=== PATIENT | female | born 1965 | race Hispanic/Latino ===

== ENCOUNTER 2018-09-07 14:35 | Emergency (ER) | payer OTHER ==
--- OUTSIDE RECORDS SUMMARY | 2018-09-07 14:37 | XMS REPORT | Summary of Care ---
:1965 Author Organization [facility] Address [address] [place] [address]- Encounter HQ Harrisonr_radhika(FIN) [id number] Date(s): 09/30/17 - 09/30/[address] [place] [address] Discharge Disposition: Home or Self Care Attending Physician: Mickey Zuñiga MD Referring Physician: Physician, Non Associated MD Vital Signs Most recent to oldest [Reference Range]: 1 Height 152.4 cm (09/30/17 3:02 PM) Blood Pressure [90-140/60-90 mmHg] 108/76 mmHg (09/30/17 3:02 PM) Respiratory Rate [14-20 BRMIN] 21 BRMIN *HI* (09/30/17 3:02 PM) Peripheral Pulse Rate [60-100 bpm] 91 bpm (09/30/17 3:02 PM) Weight 82.415 kg (09/30/17 3:02 PM) Body Mass Index 35.48 m2 (09/30/17 3:02 PM) Problem List Condition Effective Dates Status Health Status Informant Symptomatic Active cholelithiasis(Confirmed) High cholesterol(Confirmed) Resolved Liver cyst(Confirmed) Active Morbid obesity(Confirmed) Active Allergies, Adverse Reactions, Alerts Substance Reaction Severity Status NKDA Moderate Active Medications No Known Medications Results No data available for this section Immunizations No data available for this section Procedures No data available for this section Social History Social History Type Response Smoking Status Never smoker; Previous treatment: None; Ready to change: No; Concerns about tobacco use in household: No; Exposure to Tobacco Smoke None; Cigarette Smoking Last 365 Days No; Reg Smoking Cessation Counseling No Assessment and Plan Extracted from: Title: Surgery Consultation Author: Lacy Khan Date: 09/30/17 Assessment/Plan 51 YOHF with hypercholesterolemia, liver cysts, and cholelithiasis with episodes of likely gallstone pancreatitis Liver cyst Cannot r/o liver cystsas cause of RUQ pain- recommend excision of largest cyst (~10cm) in left lateral segment in concurrence with laparoscopic cholecystectomy. Symptomatic cholelithiasis With episodes of probable gallstone pancreatitis, symptomatic cholelithiasis , and MRI confirming cholelithiasis, laparoscopic cholecystectomy is indicated and recommended. R/B/A discussed with patien t, all questions answered, and patient verbalized understanding. EKG and chest X-ray ordered for pre-op evaluation. Will schedule for laparoscopic cholecystectomy and excision of liver cyst on October 08. Ordered: Chest 2 views DX, 09/30/17, None, Routine ONCE, 1, day, Transport by Ambulatory , Future Order Indicator, ZORAIDA Pendleton EKG 11/15 Lead Only All Units, Routine, 09/30/17, Periop cardiovascular exam , ONCE, Future Order
--- OUTSIDE RECORDS SUMMARY | 2018-09-07 14:37 | XMS REPORT | Summary of Care ---
:1965 Author Organization [facility] Address [address] [place], [place] [address]- Encounter HQ Encntr_alias(FIN) [id number] Date(s): 08/14/17 - 08/14/17 [facility] [address] [place] [address]- Discharge Disposition: Home or Self Care Attending Physician: Clement Borges MD Referring Physician: Clement Borges MD Vital Signs No data available for this section Problem List No data available for this section Allergies, Adverse Reactions, Alerts No data available for this section Medications No data available for this section Results No data available for this section Immunizations No data available for this section Procedures No data available for this section Social History No data available for this section Assessment and Plan No data available for this section
--- OUTSIDE RECORDS SUMMARY | 2018-09-07 14:37 | XMS REPORT | Summary of Care ---
:1965 Author Organization [facility] Address [address] [place] [address]- Encounter HQ Encntr_alias(FIN) [id number] Date(s): 10/13/15 - 10/13/[address] [address]- [phone] Discharge Disposition: Home Attending Physician: Barry Metcalf MD Vital Signs No data available for [...]
--- OUTSIDE RECORDS SUMMARY | 2018-09-07 14:37 | XMS REPORT | Summary of Care ---
:1965 Author Organization [facility] Address [address] [place], [place] [address]- Encounter HQ Encntr_alias(FIN) [id number] Date(s): 08/16/17 - 08/16/17 [facility] [address] [place] [address]- Discharge Disposition: Home or Self Care Attending Physician: Jonh Mccloud MD Referring Physician: Jonh Mccloud MD Vital Signs No data available for [...]
--- OUTSIDE RECORDS SUMMARY | 2018-09-07 14:37 | XMS REPORT | Summary of Care ---
:1965 Author Organization [facility] Address [address] [place] [address]- Encounter HQ Shorty(FIN) [id number] Date(s): 10/21/17 - 10/21/[address] [place] [address] Discharge Disposition: Home or Self Care Attending Physician: Mickey Zuñiga MD Referring Physician: Mickey Zuñiga MD Vital Signs Most recent to oldest [Reference Range]: 1 Height 152.4 cm (10/21/17 3:20 PM) Blood Pressure [90-140/60-90 mmHg] 116/70 mmHg (10/21/17 3:20 PM) Respiratory Rate [14-20 BRMIN] 19 BRMIN (10/21/17 3:20 PM) Peripheral Pulse Rate [60-100 bpm] 76 bpm (10/21/17 3:20 PM) Weight 81.006 kg (10/21/17 3:20 PM) Body Mass Index 34.88 m2 (10/21/17 3:20 PM) Problem List Condition Effective Dates Status Health Status Informant Symptomatic Active cholelithiasis(Confirmed) Cholelithiasis(Confirmed) Resolved High cholesterol(Confirmed) Resolved Liver cyst(Confirmed) Active Liver cyst(Confirmed) Resolved Morbid obesity(Confirmed) Active Allergies, Adverse Reactions, Alerts Substance Reaction Severity Status NKDA Moderate Active Medications famotidine 20 mg oral tablet 20 mg=1 tab, PO, BID, PRN Heartburn, # 60 tab, 5 Refill(s), Pharmacy: [facility] [id number] Start Date: 10/21/17 Stop Date: 10/16/18 Status: OrderedProtonix 40 mg oral enteric coated tablet 40 mg=1 tab, PO, Daily, # 30 tab, 5 Refill(s), Pharmacy: [facility] [id number] Start Date: 10/21/17 Stop Date: 04/19/18 Status: Ordered Results No data available for this section Immunizations No data available for this section Procedures Procedure Date Related Diagnosis Body Site Cholecystocaecostomy 10/08/17 Lithotripsy Tubal ligation Social History Social History Type Response Alcohol Never Smoking Status Never smoker; Previous treatment: None; Ready to change: No; Concerns about tobacco use in household: No; Exposure to Tobacco Smoke None; Cigarette Smoking Last 365 Days No; Reg Smoking Cessation Counseling No Assessment and Plan No data available for this section
--- OUTSIDE RECORDS SUMMARY | 2018-09-07 14:37 | XMS REPORT | Summary of Care ---
:1965 Author Organization [facility] Address [address] [place] [address]- Encounter HQ Harrisonr_radhika(FIN) [id number] Date(s): 10/09/17 - 10/09/[address] Professional Services provided by [facility] [place] [address]- Discharge Disposition: Home or Self Care Attending Physician: Mickey Zuñiga MD Admitting Physician: Mickey Zuñiga MD Referring Physician: Mickey Zuñiga MD Vital Signs Most recent to oldest 1 2 3 [Reference Range]: Height 152.4 cm 152.4 cm (10/08/17 1:48 PM) (10/04/17 12:19 PM) Temperature Oral [96.4-99.1 98.2 DegF 97.9 DegF 97.6 DegF DegF] (10/09/17 11:22 AM) (10/09/17 7:00 AM) (10/08/17 11:43 PM) Blood Pressure [90-140/60-90 103/69 mmHg 98/60 mmHg 100/61 mmHg mmHg] (10/09/17 11:22 AM) (10/09/17 7:00 AM) (10/08/17 11:43 PM) Respiratory Rate [14-20 18 BRMIN 18 BRMIN 18 BRMIN BRMIN] (10/09/17 11:22 AM) (10/09/17 7:00 AM) (10/08/17 11:43 PM) Peripheral Pulse Rate 64 bpm 61 bpm 65 bpm [60-100 bpm] (10/09/17 11:22 AM) (10/09/17 7:00 AM) (10/08/17 11:43 PM) Weight 87.358 kg 82.273 kg (10/08/17 1:48 PM) (10/08/17 8:46 AM) Body Mass Index 37.61 m2 35.42 m2 (10/08/17 1:48 PM) (10/08/17 8:46 AM) Problem List Condition Effective Dates Status Health Status Informant Symptomatic Active cholelithiasis(Confirmed) Cholelithiasis(Confirmed) Resolved High cholesterol(Confirmed) Resolved Liver cyst(Confirmed) Active Liver cyst(Confirmed) Resolved Morbid obesity(Confirmed) Active Allergies, Adverse Reactions, Alerts Substance Reaction Severity Status NKDA Moderate Active Medications acetaminophen (ANES) Route: IV, Drug form: INJ, ONCE, Stop date: 10/08/17 11:05:00 [employer] Start Date: 10/08/17 Stop Date: 10/08/17 Status: Completedacetaminophen-codeine #3 1 tab, Route: PO, Drug Form: TAB, Dosing Weight 82.273, kg, Q6H, PRN Pain Score 1-3, Start date: 10/08/17 12:17:00 [employer], Duration: 30 day, Stop date: 11/07/17 12 :16:00 [employer], pain scale 4-6 Notes: Do not exceed 4gm/day of acetaminophen. (Same as: Tylenol with Codeine # 3) Start Date: 10/08/17 Stop Date: 10/09/17 Status: Discontinuedacetaminophen-codeine #3 2 tab, Route: PO, Drug Form: TAB, Dosing Weight 82.273, kg, Q6H, PRN Pain Score 4-6, Start date: 10/08/17 12:16:00 [employer], Duration: 30 day, Stop date: 11/07/17 12 :15:00 [employer], pain scale 1-3 Notes: Do not exceed 4gm/day of acetaminophen. (Same as: Tylenol with Codeine # 3) Start Date: 10/08/17 Stop Date: 10/09/17 Status: DiscontinuedANES flumazenil 0.2 mg, Route: IVP, PRN, Dosing Weight 82.273, kg, PRN Benzodiazepine Reversal, Initial dose, Start date: 10/08/17 10:10:00 [employer], Duration: 30 day, Stop date: 10:09:00 [employer] Start Date: 10/08/17 Stop Date: 10/08/17 Status: DiscontinuedANES hydrALAZINE 10 mg, Route: IVP, Q20Min, Dosing Weight 82.273, kg, PRN Elevated BP, Start date : 10/08/17 10:10:00 [employer], Duration: 2 doses or times, Stop date: Limited # of times Start Date: 10/08/17 Stop Date: 10/08/17 Status: DiscontinuedANES HYDROmorphone 0.5 mg, Route: IVP, Q5Min, Dosing Weight 82.273, kg, PRN Pain Score 7-10, Start date: 10/08/17 10:10:00 [employer], Duration: 4 doses or times, Stop date: Limited # of times Start Date: 10/08/17 Stop Date: 10/08/17 Status: DiscontinuedANES labetalol 10 mg, Route: IVP, Q5Min, Dosing Weight 82.273, kg, PRN Elevated BP, Start date : 10/08/17 10:10:00 [employer], Duration: 5 doses or times, Stop date: Limited # of times Start Date: 10/08/17 Stop Date: 10/08/17 Status: DiscontinuedANES metoprolol 1 mg, Route: IVP, Q5Min, Dosing Weight 82.273, kg, PRN Other -See Comment, Start date: 10/08/17 10:10:00 [employer], Duration: 5 doses or times, Stop date: Limited # of times Start Date: 10/08/17 Stop Date: 10/08/17 Status: DiscontinuedANES naloxone 0.4 mg, Route: IVP, Q2MIN, Dosing Weight 82.273, kg, PRN Narcotic Reversal, Start date: 10/08/17 10:10:00 [employer], Duration: 8 doses or times, Stop date: Limited # of times Start Date: 10/08/17 Stop Date: 10/08/17 Status: DiscontinuedANES ondansetron 4 mg, Route: IVP, ONCE, Dosing Weight 82.273, kg, PRN Nausea & Vomiting, Start date: 10/08/17 10:10:00 [employer] Start Date: 10/08/17 Stop Date: 10/08/17 Status: DiscontinuedANES oxyCODONE 5 mg, Route: PO, Drug form: TAB, Q4H, Dosing Weight 82.273, kg, PRN Pain Score 4 -6, Start date: 10/08/17 10:10:00 [employer], Duration: 30 day, Stop date: 11/07/17 10: 09:00 [employer] Start Date: 10/08/17 Stop Date: 10/08/17 Status: DiscontinuedANES promethazine 6.25 mg, Route: IVPB, ONCE, Dosing Weight 82.273, kg, PRN Nausea & Vomiting , Start date: 10/08/17 10:10:00 [employer] Start Date: 10/08/17 Stop Date: 10/08/17 Status: DiscontinuedceFAZolin (ANES) Route: IV, Drug form: INJ, ONCE, Stop date: 10/08/17 10:15:00 [employer] Start Date: 10/08/17 Stop Date: 10/08/17 Status: CompletedCipro 500 mg oral tablet 500 mg=1 tab, PO, Q12H, X 7 day, # 14 tab, 0 Refill(s), Pharmacy: [facility] [id number] Start Date: 10/09/17 Stop Date: 10/16/17 Status: Orderedciprofloxacin 400 mg, 200 mL, Route: IVPB, Drug form: INJ, [id number], Dosing Weight 82.273, kg, Start date: 10/08/1715:00:00 [employer], Duration: 7 day, Stop date: 10/15/17 3:00:00 [employer], ABX Indication: Intra-abdominal Infection Notes: Do not refrigerate Start Date: 10/08/17 Stop Date: 10/09/17 Status: Discontinueddexamethasone (ANES) Route: IV, Drug form: INJ, ONCE, Stop date: 10/08/17 10:15:00 [employer] Start Date: 10/08/17 Stop Date: 10/08/17 Status: CompletedDilaudid 0.5 mg, 0.25 mL, Route: IVP, Drug form: INJ, Q4H, Dosing Weight 82.273, kg, PRN Pain Score 7-10, Start date: 10/08/17 12:14:00 [employer], Duration: 30 day, Stop date : 11/07/17 12:13:00 [employer] Notes: Same as: Dilaudid Start Date: 10/08/17 Stop Date: 10/09/17 Status: Discontinueddocusate 100 mg, 1 cap, Route: PO, Drug form: CAP, Daily, Dosing Weight 82.273, kg, Start date: 10/09/17 9:00:00 [employer], Duration: 30 day, Stop date: 11/07/17 9:00:00 [employer] Notes: (Same as: Colace) (Do Not Crush) Start Date: 10/09/17 Stop Date: 10/09/17 Status: Discontinueddocusate sodium 100 mg oral capsule 100 mg=1 cap, PO, Daily, # 14 cap, 0 Refill(s), Pharmacy: [facility] [id number] Start Date: 10/09/17 Stop Date: 10/23/17 Status: OrderedExcedrin 2 tab, PO, Q6H, as needed for migraines, 0 Refill(s) Start Date: 10/08/17 Status: Orderedfamotidine (ANES) Route: IV, Drug form: INJ, ONCE, Stop date: 10/08/17 10:20:00 [employer] Start Date: 10/08/17 Stop Date: 10/08/17 Status: CompletedfentaNYL (ANES) Route: IV, Drug form: INJ, ONCE, Stop date: 10/08/17 10:35:00 [employer] Start Date: 10/08/17 Stop Date: 10/08/17 Status: Completedgabapentin 300 mg oral capsule 300 mg, 1 cap, Route: PO, Drug form: CAP, ONCE, Dosing Weight 82.273, kg, Priority: STAT, Start date: 10/08/17 8:56:00 [employer], Stop date: 10/08/17 8:56:00 [employer] Notes: (Same as: Neurontin) Start Date: 10/08/17 Stop Date: 10/08/17 Status: Completedglycopyrrolate (ANES) Route: IV, Drug form: INJ, ONCE, Stop date: 10/08/17 12:09:00 [employer] Start Date: 10/08/17 Stop Date: 10/08/17 Status: Completedheparin 5,000 unit, 1 mL, Route: SUB-Q, Drug form: INJ, Q8H, Dosing Weight 87.358, kg, Start date: 10/09/17 21:21:00 [employer], Duration: 30 day, Stop date: 11/08/17 16:00: 00 [employer] Notes: porcine heparin Start Date: 10/09/17 Stop Date: 10/09/17 Status: Canceledibuprofen 200 mg, PO, Q6H, PRN Pain Score 6-10, 0 Refill(s) Start Date: 10/08/17 Status: OrderedketOROLAC (ANES) IV, ONCE Start Date: 10/08/17 Stop Date: 10/08/17 Status: Completedlidocaine (ANES) Route: IV, Drug form: INJ, ONCE, Stop date: 10/08/17 10:30:00 [employer] Start Date: 10/08/17 Stop Date: 10/08/17 Status: CompletedLR 1000 mL INJ (ANES) Route: IV, Total Volume: 1,000, Start date: 10/08/17 9:15:00 [employer], Stop date: 06/17 10:15:00 [employer] Start Date: 10/08/17 Stop Date: 10/08/17 Status: Completedmidazolam (ANES) Route: IV, Drug form: SOLN, ONCE, Stop date: 10/08/17 10:30:00 [employer] Start Date: 10/08/17 Stop Date: 10/08/17 Status: Completedneostigmine (ANES) Route: IV, Drug form: INJ, ONCE, Stop date: 10/08/17 12:09:00 [employer] Start Date: 10/08/17 Stop Date: 10/08/17 Status: CompletedNorco 5/325 oral tablet 1 tab, PO, Q6H, # 30 tab, 0 Refill(s), given to patient Start Date: 10/09/17 Stop Date: 10/21/17 Status: Orderedondansetron (ANES) Route: IV, Drug form: INJ, ONCE, Stop date: 10/08/17 12:09:00 [employer] Start Date: 10/08/17 Stop Date: 10/08/17 Status: Completedphenylephrine (ANES) Route: IV, Drug form: INJ, ONCE, Stop date: 10/08/17 10:20:00 [employer] Start Date: 10/08/17 Stop Date: 10/08/17 Status: CompletedPlasma-Lyte A PH-7.4 1000 ml INJ 1,000 mL 1,000 mL, Rate: 150 ml/hr, Infuse over: 6.7 hr, Route: IV, Dosing Weight 82.273 kg, Total Volume: 1,000, Start date: 10/08/17 12:13:00 [employer], Duration: 8 hr, Stop date: 10/08/17 20:12:00 [employer] Notes: WASTE: F/P - Sink; E - Municipal Trash Bin Start Date: 10/08/17 Stop Date: 10/08/17 Status: Completedpropofol (ANES) Route: IV, Drug form: INJ, ONCE, Stop date: 10/08/17 10:30:00 [employer] Start Date: 10/08/17 Stop Date: 10/08/17 Status: Completedrocuronium (ANES) Route: IV, Drug form: INJ, ONCE, Stop date: 10/08/17 10:30:00 [employer] Start Date: 10/08/17 Stop Date: 10/08/17 Status: Completedtramadol 100 mg oral tablet, extended release 100 mg, 1 tab, Route: PO, Drug form: ERTAB, ONCE, Priority: STAT, Start date: 8:56:00 [employer], Stop date: 10/08/17 8:56:00 [employer] Start Date: 10/08/17 Stop Date: 10/08/17 Status: Discontinuedtramadol 50 mg oral tablet 100 mg, 2 tab, Route: PO, Drug form: TAB, ONCE, Start date: 10/08/17 8:58:00 [employer] , Stop date: 10/08/17 8:58:00 [employer] Notes: Not to exceed 400mg/day. (Same As: Ultram) Start Date: 10/08/17 Stop Date: 10/08/17 Status: Completed Results BLOOD BANK RESULTS Most recent to oldest [Reference Range]: 1 2 ABO/Rh O POS *Unknown* (10/08/17 8:37 AM) Antibody Scrn Negative (10/08/17 8:37 AM) ELECTROLYTES Most recent to oldest [Reference Range]: 1 2 Sodium Lvl [135-145 mEq/L] 139 mEq/L 136 mEq/L (10/09/17 3:58 AM) (10/08/17 8:37 AM) Potassium Lvl [3.5-5.1 mEq/L] 4.1 mEq/L 3.9 mEq/L (10/09/17 3:58 AM) (10/08/17 8:37 AM) Chloride Lvl [95-109 mEq/L] 106 mEq/L 105 mEq/L (10/09/17 3:58 AM) (10/08/17 8:37 AM) CO2 [24-32 mEq/L] 25 mEq/L 22 mEq/L (10/09/17 3:58 AM) *LOW* (10/08/17 8:37 AM) AGAP [10.0-20.0 mEq/L] 12.1 mEq/L 12.9 mEq/L (10/09/17 3:58 AM) (10/08/17 8:37 AM) CHEM PANEL Most recent to oldest [Reference Range]: 1 2 Creatinine Lvl [0.50-1.40 mg/dL] 0.72 mg/dL 0.80 mg/dL (10/09/17 3:58 AM) (10/08/17 8:37 AM) eGFR 98 mL/min/1.73m2 1 86 mL/min/1.73m2 2 *NA* *NA* (10/09/17 3:58 AM) (10/08/17 8:37 AM) BUN [7-22 mg/dL] 13 mg/dL 17 mg/dL (10/09/17 3:58 AM) (10/08/17 8:37 AM) Glucose Lvl [70-99 mg/dL] 112 mg/dL 128 mg/dL *HI* *HI* (10/09/17 3:58 AM) (10/08/17 8:37 AM) Total Protein [6.4-8.4 g/dL] 8.7 g/dL *HI* (10/08/17 8:37 AM) Albumin Lvl [3.5-5.0 g/dL] 4.1 g/dL (10/08/17 8:37 AM) Globulin [2.7-4.2 g/dL] 4.6 g/dL *HI* (10/08/17 8:37 AM) A/G Ratio [0.7-1.6] 0.9 (10/08/17 8:37 AM) Calcium Lvl [8.5-10.5 mg/dL] 9.0 mg/dL 9.7 mg/dL (10/09/17 3:58 AM) (10/08/17 8:37 AM) ALT [0-65 unit/L] 28 unit/L (10/08/17 8:37 AM) AST [0-37 unit/L] 18 unit/L (10/08/17 8:37 AM) Alk Phos [39-136 unit/L] 68 unit/L (10/08/17 8:37 AM) Bili Total [0.2-1.3 mg/dL] 0.4 mg/dL (10/08/17 8:37 AM) Bili Direct [0.0-0.3 mg/dL] 0.1 mg/dL (10/08/17 8:37 AM) Bili Indirect [0.0-1.0 mg/dL] 0.3 mg/dL (10/08/17 8:37 AM) 1Result Comment: The eGFR is calculated using the CKD-EPI formula. In most young , healthy individualsthe eGFR will be >90 mL/min/1.73m2. The eGFR declines with age. An eGFR of 60-89 may be normal in some populations, particularly the elderly, for whom the CKD-EPI formula has not been extensively validated. Use of the eGFR is not recommended in the following populations: Individuals with unstable creatinine concentrations, including patients and those with serious co-morbid conditions. Patients with extremes in muscle mass or diet. The data above are obtained from the National Kidney Disease Education Program ( NKDEP) which additionally recommends that when the eGFR is used in patients with extremes of body mass index for purposesof drug dosing, the eGFR should be multiplied by the estimated BMI.2Result Comment: The eGFR is calculated using the CKD-EPI formula. In most young, healthy individualsthe eGFR will be >90 mL/ min/1.73m2. The eGFR declines with age. An eGFR of 60-89 may be normal in some populations, particularly the elderly, for whom the CKD-EPI formula has not been extensively validated. Use of the eGFR is not recommended in the following populations: Individuals with unstable creatinine concentrations, including patients and those with serious co-morbid conditions. Patients with extremes in muscle mass or diet. The data above are obtained from the National Kidney Disease Education Program ( NKDEP) which additionally recommends that when the eGFR is used in patients with extremes of body mass index for purposesof drug dosing, the eGFR should be multiplied by the estimated BMI.HEMATOLOGY Most recent to oldest 1 2 [Reference Range]: WBC [3.7-10.4 K/CMM] 13.2 K/CMM 7.0 K/CMM *HI* (10/08/17 8:37 AM) (10/09/17 3:58 AM) RBC [4.20-5.40 M/CMM] 3.95 M/CMM 4.67 M/CMM *LOW* (10/08/17 8:37 AM) (10/09/17 3:58 AM) Hgb [12.0-16.0 g/dL] 11.9 g/dL 14.1 g/dL *LOW* (10/08/17 8:37 AM) (10/09/17 3:58 AM) Hct [36.0-48.0 %] 35.7 % 41.9 % *LOW* (10/08/17 8:37 AM) (10/09/17 3:58 AM) MCV [80.0-98.0 fL] 90.4 fL 89.8 fL (10/09/17 3:58 AM) (10/08/17 8:37 AM) MCH [27.0-31.0 pg] 30.1 pg 30.2 pg (10/09/17 3:58 AM) (10/08/17 8:37 AM) MCHC [32.0-36.0 g/dL] 33.3 g/dL 33.7 g/dL (10/09/17 3:58 AM) (10/08/17 8:37 AM) RDW [11.5-14.5 %] 13.7 % 13.9 % (10/09/17 3:58 AM) (10/08/17 8:37 AM) Platelet [133-450 K/CMM] 251 K/CMM 276 K/CMM (10/09/17 3:58 AM) (10/08/17 8:37 AM) MPV [7.4-10.4 fL] 9.7 fL 9.7 fL (10/09/17 3:58 AM) (10/08/17 8:37 AM) Segs [45.0-75.0 %] 83.7 % 74.3 % *HI* (10/08/17 8:37 AM) (10/09/17 3:58 AM) Lymphocytes [20.0-40.0 %] 10.0 % 19.5 % *LOW* *LOW* (10/09/17 3:58 AM) (10/08/17 8:37 AM) Monocytes [2.0-12.0 %] 5.9 % 4.6 % (10/09/17 3:58 AM) (10/08/17 8:37 AM) Eosinophils [0.0-4.0 %] 0.1 % 1.0 % (10/09/17 3:58 AM) (10/08/17 8:37 AM) Basophils [0.0-1.0 %] 0.3 % 0.6 % (10/09/17 3:58 AM) (10/08/17 8:37 AM) Segs-Bands # [1.5-8.1 K/CMM] 11.1 K/CMM 5.2 K/CMM *HI* (10/08/17 8:37 AM) (10/09/17 3:58 AM) Lymphocytes # [1.0-5.5 K/CMM] 1.3 K/CMM 1.4 K/CMM (10/09/17 3:58 AM) (10/08/17 8:37 AM) Monocytes # [0.0-0.8 K/CMM] 0.8 K/CMM 0.3 K/CMM (10/09/17 3:58 AM) (10/08/17 8:37 AM) Eosinophils # [0.0-0.5 K/CMM] 0.1 K/CMM (10/08/17 8:37 AM) PT [12.0-14.7 seconds] 12.9 seconds (10/08/17 8:37 AM) INR [0.85-1.17] 0.97 (10/08/17 8:37 AM) PTT [22.9-35.8 seconds] 27.5 seconds (10/08/17 8:37 AM) R-time [5.0-10.0 minutes] 5.9 minutes (10/08/17 8:37 AM) K-time [1.0-3.0 minutes] 1.4 minutes (10/08/17 8:37 AM) Angle [53.0-72.0 degrees] 70.3 degrees (10/08/17 8:37 AM) Max Amp [50.0-70.0 mm] 72.1 mm *HI* (10/08/17 8:37 AM) G-value [4.5-11.0 K d/sc] 12.9 K d/sc *HI* (10/08/17 8:37 AM) Ly30 [0.0-7.5 %] 4.0 % (10/08/17 8:37 AM) Coag Index [-3.0-3.0] 2.0 (10/08/17 8:37 AM) TEG Interp Thrombelastograph results show increased values of MA. This finding is suggestive of platelet hypercoagulation. CPT:29792 *NA* (10/08/17 8:37 AM) TEG Data See Note (10/08/17 8:37 AM) Immunizations No data available for this section [...]
--- OUTSIDE RECORDS SUMMARY | 2018-09-07 14:37 | XMS REPORT | Summary of Care ---
:1965 Author Organization [facility] Address [address], [place] [address]- Encounter HQ Encntr_alibelen(FIN) [id number] Date(s): 10/03/17 - 10/03/17 [facility] [id number] [place] [id number]- Discharge Disposition: Home or Self Care Attending Physician: Mickey Zuñiga MD Admitting Physician: Mickey Zuñiga MD Referring Physician: Mickey Zuñiga MD Vital Signs No data available for this section Problem List Condition Effective Dates Status Health Status Informant Symptomatic Active cholelithiasis(Confirmed) Cholelithiasis(Confirmed) Resolved High cholesterol(Confirmed) Resolved Liver cyst(Confirmed) Active Liver cyst(Confirmed) Resolved Morbid obesity(Confirmed) Active Allergies, Adverse Reactions, Alerts Substance Reaction Severity Status NKDA Moderate Active Medications No data available for this section Results No data available for this section Immunizations No data available for this section Procedures Procedure Date Related Diagnosis Body Site Lithotripsy Tubal ligation Social History Social History Type Response Alcohol Never Smoking Status Never smoker; Previous treatment: None; Ready to change: No; Concerns about tobacco use in household: No; Exposure to Tobacco Smoke None; Cigarette Smoking Last 365 Days No; Reg Smoking Cessation Counseling No Assessment and Plan No data available for this section"
[2018-09-07 15:50] LABS: Absolute Lymphocytes (CBC) 1.9 K/uL (0.7-4.9); Absolute Monocytes 0.7 K/uL (0.1-1.3); Absolute Neutrophil 6.5 K/uL (1.8-8.0); Basophils % 1.1 % (0-1.3); Hematocrit 41.7 % (36.0-45.0); Lymphocytes % 20.4 % (15.3-44.8); MCH 30.6 pg (27.0-35.0); MCV 91.2 fL (80-100); MPV 9.8 fL (7.6-11.3); Monocytes % 7.4 % (3.3-12.3); RBC Red Blood Cell Count 4.57 M/uL (3.86-4.86)
[2018-09-07 15:55] LABS: Protime INR 0.99
[2018-09-07 16:01] LABS: Urine Blood 1+ (NEG); Urine Glucose NEGATIVE (NEG); Urine Protein NEGATIVE (NEG)
[2018-09-07 16:06] LABS: ALT/SGPT 27 U/L (12-78); AST/SGOT 20 U/L (15-37); Albumin 3.7 g/dL (3.4-5.0); Alkaline Phosphatase 96 U/L (45-117); BUN Blood Urea Nitrogen 17 mg/dL (7-18); Bicarbonate 27 mmol/L (21-32); Bilirubin Direct < 0.1 mg/dL (0-0.2); Bilirubin Total 0.2 mg/dL (0.2-1.0); Glucose Level 94 mg/dL (74-106); Lipase 298 U/L (73-393); Magnesium 2.2 mg/dL (1.8-2.4); Potassium 3.7 mmol/L (3.5-5.1); Protein, Total 7.7 g/dL (6.4-8.2); Sodium Level 141 mmol/L (136-145)
--- NOTE | 2018-09-07 18:16 | RAD REPORT ---
EXAM DESCRIPTION: CTAbdomen Pelvis W Contrast - 09/07/2018 5:55 pm CLINICAL HISTORY: Abdominal pain. rectal bleeding;Abd pain COMPARISON: Abdomen Pelvis W Contrast dated 01/08/2017 TECHNIQUE: Biphasic CT imaging of the abdomen and pelvis was performed with 100 ml non-ionic IV cont rast. All CT scans are performed using dose optimization technique as appropriate and may include automated exposure control or mA/KV adjustment according to patient size. FINDINGS: The lung bases are clear. Mild fatty liver is present. Multiple liver cysts are noted. Cholecystectomy clips are seen. The sple en, pancreas, adrenal glands kidneys are within normal limits. Bilateral renal cysts. No bowel obstruction, free air, free fluid or abscess. The small fat containing umbilical hernia. Sma ll fat containing supraumbilical hernia. The appendix is normal. No evidence of significant lymphade nopathy. No suspicious bony findings. 5.3 cm right adnexal lesion is present. Cervix appears somewhat irregular. IMPRESSION: 5 cm right adnexal lesion is present, probably a cyst. Follow-up pelvic sonography can b e obtained if further assessment is needed clinically. Somewhat irregular appearance is cervix, correlation with recent Pap smear would be suggested.
--- NOTE | 2018-09-07 19:43 | ER ---
Nurse's Notes [facility] Name: Miryam Leon Age: 52 yrs Sex: Female : 1965 Arrival Date: 09/07/2018 Time: 14:37 Bed 28 Private MD: Diagnosis: Intra-abdominal and pelvic swelling, mass and lump, unspecified site;Blood in Stool Presentation: 09/07 14:41 Presenting complaint: Patient states: Abd pain since , bright red blood in la1 stool x1 last night. Transition of care: patient was not received from another setting of care. Onset of symptoms was September 07, 2018. Risk Assessment: Do you want to hurt yourself or someone else? Patient reports no desire to harm self or others. Initial Sepsis Screen: Does the patient meet any 2 criteria? No. Patient's initial sepsis screen is negative. Does the patient have a suspected source of infection? No. Patient's initial sepsis screen is negative. Care prior to arrival: None. 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 - Social history:: Smoking status: Patient/guardian denies using tobacco. - Ebola Screening: : No symptoms or risks identified at this time. Screenin:48 Abuse screen: Denies threats or abuse. Denies injuries from another. Nutritional rv screening: No deficits noted. Tuberculosis screening: No symptoms or risk factors identified. Fall Risk None identified. Assessment: 14:48 General: Appears in no apparent distress. comfortable, Behavior is calm, cooperative. rv Pain: Complains of pain in abdomen. Neuro: Level of Consciousness is awake, alert, obeys commands, Oriented to person, place, time, situation. Cardiovascular: Capillary refill < 3 seconds. Respiratory: Airway is patent. GI: Reports lower abdominal pain, bloody stool. : No signs and/or symptoms were reported regarding the genitourinary system. EENT: No signs and/or symptoms were reported regarding the EENT system. Derm: Skin is intact. 16:49 Reassessment: Patient appears in no apparent distress at this time. Patient and/or rv family updated on plan of care and expected duration. Pain level reassessed. Patient is alert, oriented x 3, equal unlabored respirations, skin warm/dry/pink. 19:01 Reassessment: Patient appears in no apparent distress at this time. Patient and/or rv family updated on plan of care and expected duration. Pain level reassessed. Patient is alert, oriented x 3, equal unlabored respirations, skin warm/dry/pink. Vital Signs: 14:42 BP 112 / 74; Pulse 88; Resp 16; Temp 98.7; Pulse Ox 98% on R/A; Weight 81.65 kg; Height la1 5 ft. 1 in. (154.94 cm); 15:42 BP 129 / 72; Pulse 79; Pulse Ox 97% on R/A; rv 16:48 BP 117 / 72; Pulse 78; Pulse Ox 95% on R/A; rv 17:30 BP 121 / 84; Pulse 72; Pulse Ox 95% on R/A; rv 19:00 BP 115 / 68; Pulse 74; Pulse Ox 96% on R/A; rv 14:42 Body Mass Index 34.01 (81.65 kg, 154.94 cm) la1 ED Course: 14:37 Patient arrived in ED. as 14:42 Triage completed. la1 14:42 Arm band placed on left wrist. la1 14:49 Patient has correct armband on for positive identification. Placed in gown. Bed in low rv position. Call light in reach. Side rails up X 1. Adult w/ patient. Pulse ox on. NIBP on. 15:17 Colton Dorman PA is PHCP. cp 15:17 Tino Madden MD is Attending Physician. cp 15:30 Inserted saline lock: 20 gauge in left antecubital area, using aseptic technique. Blood rv collected. 15:30 Initial lab(s) drawn, by me, sent to lab. Urine collected: clean catch specimen, clear. rv 17:53 Awaiting lab results, Awaiting radiology results. rv 17:53 CT completed. Patient tolerated procedure well. Patient moved back from CT. kw1 17:54 CT Abd/Pelvis - W/Contrast: give oral contrast In Process Unspecified. EDMS 18:04 Stool Culture Sent. rv 18:04 Clostridium difficile DNA Sent. rv 18:04 CDIFF Sent. rv 18:04 Stool Culture Sent. rv 18:04 Urine --Ancillary (enter results) Sent. rv 18:04 Urine Dipstick--Ancillary (enter results) Sent. rv 19:41 Genia Cordero MD is Referral Physician. cp 19:42 Fredi Shannon MD is Referral Physician. cp 19:44 Ultrasound completed. Patient tolerated well. Notified ED Physician page. sg3 19:51 US Transvaginal Study (Probe) In Process Unspecified. EDMS 19:54 No provider procedures requiring assistance completed. IV discontinued, bleeding rv controlled, No redness/swelling at site. Pressure dressing applied. Administered Medications: No medications were administered Outcome: 19:43 Discharge ordered by MD. cp 19:54 Discharged to home ambulatory. rv 19:54 Condition: good 19:54 Discharge instructions given to patient, family, Instructed on discharge instructions, follow up and referral plans. medication usage, Demonstrated understanding of instructions, follow-up care, medications, Prescriptions given X 1. 19:55 Patient left the ED. rv Signatures: Dispatcher [employer] EDMS Camelia Cruz Lee, RN RN la1 Colton Dorman PA PA cp Fior Houser kw1 Inés Deng sg3 Godwin Clarke, RN RN rv Corrections: (The following items were deleted from the chart) 18:05 18:04 Occult Blood+PA.LAB.BRZ drawn and sent. rv EDMS
--- NOTE | 2018-09-07 19:44 | EDPHYS ---
Physician Documentation [facility] Name: Miryam Leon Age: 52 yrs Sex: Female : 1965 Arrival Date: 09/07/2018 Time: 14:37 Bed 28 Private MD: ED Physician Tino Madden HPI: 09/07 15:30 This 52 yrs old Female presents to ER via Ambulatory with complaints of Bloody cp Stools, Abdominal Pain. 15:30 The patient presents with abdominal pain in the lower abdomen. cp 15:30 Onset: The symptoms/episode began/occurred 3 day(s) ago. The symptoms do not radiate. cp Associated signs and symptoms: Pertinent positives: 1 episode of blood in stool, Pertinent negatives: nausea and vomiting, anorexia, chest pain, constipation, diarrhea, dysuria, fever, shortness of breath, vaginal discharge. Severity of pain: in the emergency department the pain is unchanged despite home interventions. 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 - Social history:: Smoking status: Patient/guardian denies using tobacco. - Ebola Screening: : No symptoms or risks identified at this time. ROS: 15:35 Constitutional: Negative for body aches, chills, fever, poor PO intake. cp 15:35 Eyes: Negative for injury, pain, redness, and discharge. cp 15:35 ENT: Negative for drainage from ear(s), ear pain, sore throat, difficulty swallowing, difficulty handling secretions. 15:35 Cardiovascular: Negative for chest pain, edema, palpitations. Exam: 15:48 Constitutional: The patient appears in no acute distress, alert, awake, cp non-diaphoretic, non-toxic, well developed, well nourished. 15:48 Head/Face: Normocephalic, atraumatic. Eyes: Pupils equal round and reactive to light, cp extra-ocular motions intact. Lids and lashes normal. Conjunctiva and sclera are non-icteric and not injected. Cornea within normal limits. Periorbital areas with no swelling, redness, or edema. ENT: Nares patent. No nasal discharge, no septal abnormalities noted. Tympanic membranes are normal and external auditory canals are clear. Oropharynx with no redness, swelling, or masses, exudates, or evidence of obstruction, uvula midline. Mucous membranes moist. Chest/axilla: Normal chest wall appearance and motion. Nontender with no deformity. No lesions are appreciated. 15:48 Cardiovascular: Rate: normal, Rhythm: regular, Heart sounds: murmur, not appreciated, cp Edema: is not appreciated, JVD: is not appreciated. 15:48 Respiratory: the patient does not display signs of respiratory distress, Respirations: normal, no use of accessory muscles, no retractions, no splinting, no tachypnea, Breath sounds: are clear throughout, no decreased breath sounds, no stridor, no wheezing. 15:48 Abdomen/GI: Inspection: abdomen appears normal, Bowel sounds: active, all quadrants, Palpation: soft, in all quadrants, moderate abdominal tenderness, in the suprapubic area and right lower quadrant, rebound tenderness, is not appreciated, involuntary guarding, is not appreciated. 15:48 Back: pain, is absent, ROM is normal. 15:48 : Rectal exam: Guaiac testing: results were negative for occult blood. 15:48 Skin: cellulitis, is not appreciated, no rash present. Vital Signs: 14:42 BP 112 / 74; Pulse 88; Resp 16; Temp 98.7; Pulse Ox 98% on R/A; Weight 81.65 kg; Height la1 5 ft. 1 in. (154.94 cm); 15:42 BP 129 / 72; Pulse 79; Pulse Ox 97% on R/A; rv 16:48 BP 117 / 72; Pulse 78; Pulse Ox 95% on R/A; rv 17:30 BP 121 / 84; Pulse 72; Pulse Ox 95% on R/A; rv 19:00 BP 115 / 68; Pulse 74; Pulse Ox 96% on R/A; rv 14:42 Body Mass Index 34.01 (81.65 kg, 154.94 cm) la1 MDM: 15:17 Patient medically screened. cp 16:00 Differential diagnosis: bowel obstruction, cholecystitis, Cholelithiasis, cp diverticulitis, pancreatitis, Pyelonephritis, Ureterolithiasis, urinary tract infection. 19:40 Data reviewed: vital signs, nurses notes, lab test result(s), radiologic studies, CT cp scan, ultrasound. 19:40 Counseling: I had a detailed discussion with the patient and/or guardian regarding: the cp historical points, exam findings, and any diagnostic results supporting the discharge/admit diagnosis, lab results, radiology results, the need for outpatient follow up, a glass block installer, an OB/Gyne specialist, to return to the emergency department if symptoms worsen or persist or if there are any questions or concerns that arise at home. Response to treatment: the patient's symptoms have markedly improved after treatment, and as a result, I will discharge patient. Special discussion: Based on the patient's Hx, exam, and Dx evaluation, there is no indication for emergent surgery or inpatient Tx. It is understood by the patient/guardian that if the Sx's persist or worsen they need to return immediately for re-evaluation. 09/07 15:25 Order name: Basic Metabolic Panel; Complete Time: 16:19 cp 09/07 16:19 Interpretation: Normal except: GFR 66. cp 09/07 15:25 Order name: CBC with Diff; Complete Time: 16:19 cp 09/07 15:25 Order name: Creatinine for Radiology; Complete Time: 16:19 cp 09/07 15:25 Order name: Hepatic Function; Complete Time: 16:19 cp 09/07 16:19 Interpretation: Normal except: GLOB 4.0; A/G 0.9. cp 09/07 15:25 Order name: Lipase; Complete Time: 16:19 cp 09/07 15:25 Order name: Magnesium; Complete Time: 16:19 cp 09/07 15:25 Order name: PT-INR; Complete Time: 16:19 cp 09/07 15:25 Order name: Ptt, Activated; Complete Time: 16:19 cp 09/07 15:42 Order name: Urine Dipstick--Ancillary (enter results) eb 09/07 15:42 Order name: Urine --Ancillary (enter results) eb 09/07 15:43 Order name: Urine Dipstick-Ancillary; Complete Time: 16:19 EDMS 09/07 18:43 Interpretation: Normal except: UBLD 1+. cp 09/07 15:43 Order name: Urine --Ancillary; Complete Time: 16:19 EDMS 09/07 16:21 Order name: Stool Culture cp 09/07 15:25 Order name: IV Saline Lock; Complete Time: 15:41 cp 09/07 15:25 Order name: Labs collected and sent; Complete Time: 15:41 09/07 15:25 Order name: Urine Dipstick-Ancillary (obtain specimen); Complete Time: 15:41 09/07 15:25 Order name: Urine Test (obtain specimen); Complete Time: 15:41 09/07 15:35 Order name: CT Abd/Pelvis - W/Contrast: give oral contrast; Complete Time: 18:18 09/07 16:21 Order name: CDIFF 09/07 16:21 Order name: Stool Culture [facility] 09/07 16:21 Order name: Clostridium difficile DNA [facility] 09/07 18:20 Order name: US Transvaginal Study (Probe) cp Administered Medications: No medications were administered Disposition: 09/07/18 19:43 Discharged to Home. Impression: Intra-abdominal and pelvic swelling, mass and lump, unspecified site, Blood in Stool. - Condition is Stable. - Discharge Instructions: Abdominal or Pelvic Ultrasound, Pelvic Mass. - Prescriptions for Tylenol- Codeine #3 300-30 mg Oral Tablet - take 2 tablets by ORAL route every 6 hours As needed; 20 tablet. - Medication Reconciliation Form, Thank You Letter, Antibiotic Education, Prescription Opioid Use form. - Follow up: Genia Cordero MD; When: 5 - 6 days; Reason: right adnexal mass. Follow up: Fredi Shannon MD; When: 2 - 3 days; Reason: blood in stool. - Problem is new. - Symptoms have improved. Signatures: Dispatcher [employer] [facility] Keo Rodriguez, RN RN la1 Colton Dorman PA PA cp Vicente, Ronaldo, RN RN rv Corrections: (The following items were deleted from the chart) 18:05 16:21 Occult Blood+PA.LAB.BRZ ordered. [facility] 19:55 19:43 09/07/2018 19:43 Discharged to Home. Impression: Intra-abdominal and pelvic rv swelling, mass and lump, unspecified site; Blood in Stool. Condition is Stable. Forms are Medication Reconciliation Form, Thank You Letter, Antibiotic Education, Prescription Opioid Use. Follow up: Genia Cordero; When: 5 - 6 days; Reason: right adnexal mass. Follow up: Fredi Shannon; When: 2 - 3 days; Reason: blood in stool. Problem is new. Symptoms have improved. cp
--- NOTE | 2018-09-07 20:07 | RAD REPORT ---
EXAM DESCRIPTION: US - Transvaginal Study Probe - 09/07/2018 7:51 pm CLINICAL HISTORY: lower abdomen pain Pelvic pain. COMPARISON: TRANSVAGINAL STUDY PROBE dated 01/02/2016No comparisons FINDINGS: The uterus is normal in size, shape and echotexture. The uterus measures 10.4 x 5.2 x 4.6 cm The endometrial stripe measures 12 mm with focal hyperechoic structure in the fundal aspect endometri um measuring 15 x 9 mm. The left ovary was not well visualized due to bowel gas. The right ovary measures 6.0 x 6.0 x 2.7 cm and contains a 5 x 4 x 3 cm hypoechoic cyst without suspicious features. Normal blood flow is seen in the right ovary. No significant pelvic ascites. IMPRESSION: 5 cm hypoechoic right ovarian cyst. 15 x 9 mm echogenic structure in the fundal endometrium could be an endometrial polyp.
== END 2018-09-07 19:55 | disposition home or self-care (01) ==
LOC: ER 14:35
DX: R19.00 Intra-abdominal and pelvic swelling, mass and lump, unspecified site (principal); I10 Essential (primary) hypertension
CPT/HCPCS: 36415; 74177; 76830; 80048; 80076; 81003; 81025; 83690; 83735; 85025; 85610; 85730; 87045; 87046; 87493; 99284; Q9967

== ENCOUNTER 2021-07-01 12:14 | Emergency (ER) | payer SELFPAY ==
--- OUTSIDE RECORDS SUMMARY | 2021-07-01 12:20 | XMS REPORT | Continuity of Care Document ---
:1965 Author Organization [facility] t Address [address] [place] [address] Care Team Providers Name Role Phone Reid Caballero DO Attending Clinician Rigo [place] Attending Clinician Etelvina HURST Attending Clinician Res-Colpo/Leep Attending Clinician Unavailable Doctor Unassigned, Name Attending Clinician Unavailable Kishor Zuñiga Attending Clinician Marvin Mccloud Attending Clinician Km Borges Attending Clinician Raymundo Metcalf Attending Clinician Kishor Zuñiga Admitting Clinician Problems Condition Condition Condition Status Onset Resolution Last Treating Co mments Source Name Details Category Date Date Treatment Clinician Date SURGICAL Diagnosis Active 2016-122017-10-21 M emoria F/U 12-21 15:01:00 l SURGICAL 00:00: Javed n F/U 00 Active 10/21/2017 [facility] CALCULUS Diagnosis Active 2016-122017-10-09 M emoria OF GALL - 12:46:00 l BLADDER CALCULUS 00:00: Jacklyn nn WITH ACUTE OF GALL 00 MANNY BLADDER WITH ACUTE MANNY Active 09/30/2017 [facility] LIVER CYST Diagnosis Active 2016-122017-09-30 Memoria 0-30 14:46:00 l LIVER 00:00: Fate CYST 00 Active 09/30/2017 [facility] DX; Diagnosis Active 2017-08-16 Mem oria K85.92= 8 12:21:00 l DX; 00:00: Mc K85.92= 00 Active 07/23/2017 [facility] K80.0 Diagnosis Active 2017-08-14 Mem oria 07-23 10:39:00 l K80.0 00:00: Mc 00 Active 07/23/2017 [facility] DX: Diagnosis Active 2017-07-23 Mem oria E66.9=OBES 07-17 10:47:00 l ITY, DX: 00:00: Mc UNSPECIFIE E66.9=OBES 00 D/Z71.3=DI ITY, E UNSPECIFIE D/Z71.3=DI E Active 07/17/2017 [facility] Hyperchole Problem Resolve 2017-10-24 Memoria sterolemia d 04:57:46 l (disorder) Javed n Hyperchole sterolemia (disorder) Resolved Problem 10/24/2017 [facility] Calculus Problem Active 2017-10-24 Mem oria in biliary 04:57:46 l tract Calculus Javed n (disorder) in biliary tract (disorder) Active Problem 10/24/2017 [facility] Liver cyst Problem Active 2017-10-24 M emoria (disorder) 04:57:46 l Liver Fate cyst (disorder) Active Problem 10/24/2017 [facility] Morbid Problem Active 2017-10-24 Memor ia obesity 04:57:46 l (disorder) Morbid Herm deacon obesity (disorder) Active Problem 10/24/2017 [facility] Allergies, Adverse Reactions, Alerts This patient has no known allergies or adverse reactions. Social History Social Habit Start Date Stop Date Quantity Comments Source Social History 2017-10-04 2017-10-04 [facility] chase 17:29:24 17:29:24 Medications Ordered Filled Start Stop Current Ordering Indication Dosage Frequency Signature Comments Components Source Medication Medication Date Date Medication? Clinician (SIG) Name Name pantoprazol 2016-12 Yes 40 mg = 1 M emoria e 40 MG 1-20 tab, PO, l Enteric 21:34: Daily, # Javed n Coated 00 30 tab, 5 Tablet Refill(s), [Protonix] Pharmacy: [facility] [id number] Famotidine 2016-12 Yes 20 mg = 1 Me moria 20 MG Oral 1-20 tab, PO, l Tablet 21:34: BID, PRN Mc 00 [place], # 60 tab, 5 Refill(s), Pharmacy: [facility] heparin 2016-12 No Notes: Memoria 12-10 porcine l 03:21: heparin Mc 00 [place] 5/325 2016-12 Yes 1 tab, PO, Memoria oral tablet 1-08 Q6H, # 30 l 18:41: tab, 0 Mc 00 Refill(s), given to patient Cipro 500 2016-12 Yes 500 mg = 1 Me moria mg oral 1-08 tab, PO, l tablet 18:41: Q12H, X 7 Javed n 00 day, # 14 tab, 0 Refill(s), Pharmacy: [facility] docusate 2016-12 Yes 100 mg = 1 Mem oria sodium 100 1-08 cap, PO, l mg oral 18:41: Daily, # Javed n capsule 00 14 cap, 0 Refill(s), Pharmacy: [facility] docusate 2016-12 No Notes: Memoria 12-09 (Same as: l 15:00: Colace) Fate 00 (Do Not Crush) ciprofloxac 2016-12 No Notes: Do M emoria in 12-08 not l 21:00: refrigerat Fate e acetaminoph 2016-12 No Notes: Do M emoria en-codeine 12-08 not exceed l #3 18:17: 4gm/day of Mc acetaminop hen. (Same as: Tylenol with Codeine # 3) acetaminoph 2016-12 No Notes: Do M emoria en-codeine 12-08 not exceed l #3 18:16: 4gm/day of Mc 00 acetaminop hen. (Same as: Tylenol with Codeine # 3) Dilaudid 2016-12 No Notes: Memoria 12-08 Same as: l 18:14: Dilaudid Fate Plasma-Lyte 2016-12 No Notes: [facility] yoli A PH-7.4 12-08 WASTE: F/P l 1000 ml INJ 18:13: - Sink; E H ermann 1,000 mL 00 [facility] ketOROLAC 2016-12 No IV, ONCE Harrison yoli (ANES) 12-08 l 18:09: Mc 00 neostigmine 2016-12 No Route: IV, Memoria (ANES) 12-08 Drug form: l 18:09: INJ, ONCE, Stop date: 10/08/17 12:09:00 REHAB RN glycopyrrol 2016-12 No Route: IV, Memoria ate (ANES) 12-08 Drug form: l 18:09: INJ, ONCE, Stop date: 10/08/17 12:09:00 REHAB RN ondansetron 2016-12 No Route: IV, Memoria (ANES) 12-08 Drug form: l 18:09: INJ, ONCE, Stop date: 10/08/17 12:09:00 REHAB RN acetaminoph 2016-12 No Route: IV, Memoria en (ANES) 12-08 Drug form: l 17:05: INJ, ONCE, Stop date: 10/08/17 11:05:00 REHAB RN fentaNYL 2016-12 No Route: IV, Mem oria (ANES) 12-08 Drug form: l 16:35: INJ, ONCE, Stop date: 10/08/17 10:35:00 REHAB RN propofol 2016-12 No Route: IV, Mem oria (ANES) 12-08 Drug form: l 16:30: INJ, ONCE, Stop date: 10/08/17 10:30:00 REHAB RN lidocaine 2016-12 No Route: IV, Me moria (ANES) 12-08 Drug form: l 16:30: INJ, ONCE, Stop date: 10/08/17 10:30:00 REHAB RN rocuronium 2016-12 No Route: IV, M emoria (ANES) 12-08 Drug form: l 16:30: INJ, ONCE, Fate 00 Stop date: 10/08/17 10:30:00 REHAB RN midazolam 2016-12 No Route: IV, Me moria (ANES) 12-08 Drug form: l 16:30: SOLN, Mc 00 ONCE, Stop date: 10/08/17 10:30:00 REHAB RN famotidine 2016-12 No Route: IV, M emoria (ANES) 12-08 Drug form: l 16:20: INJ, ONCE, Stop date: 10/08/17 10:20:00 REHAB RN phenylephri 2016-12 No Route: IV, Memoria ne (ANES) 12-08 Drug form: l 16:20: INJ, ONCE, Mc 00 Stop date: 10/08/17 10:20:00 REHAB RN dexamethaso 2016-12 No Route: IV, Memoria ne (ANES) 12-08 Drug form: l 16:15: INJ, ONCE, Stop date: 10/08/17 10:15:00 REHAB RN ceFAZolin 2016-12 No Route: IV, Me moria (ANES) 12-08 Drug form: l 16:15: INJ, ONCE, Stop date: 10/08/17 10:15:00 REHAB RN ANES 2016-12 No 4 mg, Memoria ondansetron 12-08 Route: l 16:10: IVP, ONCE, Mc 00 Dosing Weight 82.273, kg, PRN Nausea & Vomiting, Start date: 10/08/17 10:10:00 REHAB RN ANES 2016-12 No 6.25 mg, Memoria promethazin 12-08 Route: l e 16:10: IVPB, Fate 00 ONCE, Dosing Weight 82.273, kg, PRN Nausea & Vomiting, Start date: 10/08/17 10:10:00 REHAB RN ANES 2016-12 No 0.5 mg, Memoria HYDROmorpho 12-08 Route: l ne 16:10: IVP, Mc 00 Q5Min, Dosing Weight 82.273, kg, PRN Pain Score 7-10, Start date: 10/08/17 10:10:00 REHAB RN, Duration: 4 doses or times, Stop date: Limited # of times ANES 2016-12 No 5 mg, Memoria oxyCODONE 12-08 Route: PO, l 16:10: Drug form: Mc 00 TAB, Q4H, Dosing Weight 82.273, kg, PRN Pain Score 4-6, Start date: 10/08/17 10:10:00 REHAB RN, Duration: 30 day, Stop date: 11/07/17 10:09:00 REHAB RN ANES 2016-12 No 0.4 mg, Memoria naloxone 12-08 Route: l 16:10: IVP, Mc 00 Q2MIN, Dosing Weight 82.273, kg, PRN Narcotic Reversal, Start date: 10/08/17 10:10:00 REHAB RN, Duration: 8 doses or times, Stop date: Limited # of times ANES 2016-12 No 0.2 mg, Memoria flumazenil 12-08 Route: l 16:10: IVP, PRN, Fate 00 Dosing Weight 82.273, kg, PRN Benzodiaze pine Reversal, Initial dose, Start date: 10/08/17 10:10:00 REHAB RN, Duration: 30 day, Stop date: 11/07/17 10:09:00 REHAB RN ANES 2016-12 No 1 mg, Memoria metoprolol 12-08 Route: l 16:10: IVP, Mc 00 Q5Min, Dosing Weight 82.273, kg, PRN Other -See Comment, Start date: 10/08/17 10:10:00 REHAB RN, Duration: 5 doses or times, Stop date: Limited # of times ANES 2016-12 No 10 mg, Memoria labetalol 12-08 Route: l 16:10: IVP, Fate 00 Q5Min, Dosing Weight 82.273, kg, PRN Elevated BP, Start date: 10/08/17 10:10:00 REHAB RN, Duration: 5 doses or times, Stop date: Limited # of times ANES 2016-12 No 10 mg, Memoria hydrALAZINE 12-08 Route: l 16:10: IVP, Fate 00 Q20Min, Dosing Weight 82.273, kg, PRN Elevated BP, Start date: 10/08/17 10:10:00 REHAB RN, Duration: 2 doses or times, Stop date: Limited # of times LR 1000 mL 2016-12 No Route: IV, M emoria INJ (ANES) 12-08 Total l 15:15: Volume: Fate 00 1,000, Start date: 10/08/17 9:15:00 REHAB RN, Stop date: 10/08/17 10:15:00 REHAB RN tramadol 50 2016-12 No Notes: Not Memoria mg oral 12-08 to exceed l tablet 14:58: 400mg/day. Jacklyn nn 00 (Same As: Ultram) gabapentin 2016-12 No Notes: Memor ia 300 mg oral 12-08 (Same as: l capsule 14:56: Neurontin) Herm deacon 00 tramadol 2016-12 No 100 mg, 1 [facility] yoli 100 mg oral 12-08 tab, l tablet, 14:56: Route: PO, Herm deacon extended 00 Drug form: release ERTAB, ONCE, Priority: STAT, Start date: 10/08/17 8:56:00 REHAB RN, Stop date: 10/08/17 8:56:00 REHAB RN ibuprofen 2016-12 Yes 200 mg, Memor ia -07 PO, Q6H, l 14:55: PRN Pain Mc 00 Score 6-10, 0 Refill(s) Excedrin 2016-12 Yes 2 tab, PO, Mem oria -07 Q6H, as l 14:55: needed for Fate migraines, 0 Refill(s) Vital Signs Vital Name Observation Time Observation Value Comments Source BMI Calculated 2017-10-21 21:20:00 Memori al Fate [facility] 2017-10-21 [facility] 2017-10-21 21:20:00 152.4 cm Memorial Fate Respitory Rate 2017-10-21 21:20:00 Memori al Mc Heart Rate 2017-10-21 21:20:00 [facility] Fate Systolic (mm Hg) 2017-10-21 21:20:00 [facility] Fate Diastolic (mm Hg) 2017-10-21 21:20:00 Mem orial Fate Temperature Oral (F) 2017-10-09 17:22:00 98.2 F Memorial Mc Heart Rate 2017-10-09 17:22:00 [facility] Mc Respitory Rate 2017-10-09 17:22:00 Memori al Mc Systolic (mm Hg) 2017-10-09 17:22:00 [facility] rial Mc Diastolic (mm Hg) 2017-10-09 17:22:00 Mem orial Mc Systolic (mm Hg) 2017-10-09 13:00:00 [facility] rial Fate Diastolic (mm Hg) 2017-10-09 13:00:00 Mem orial Fate Heart Rate 2017-10-09 13:00:00 [facility] Fate Respitory Rate 2017-10-09 13:00:00 Memori al Fate Temperature Oral (F) 2017-10-09 13:00:00 97.9 F Memorial Mc Systolic (mm Hg) 2017-10-09 05:43:00 [facility] rial Mc Diastolic (mm Hg) 2017-10-09 05:43:00 Mem orial Mc Respitory Rate 2017-10-09 05:43:00 Memori al Mc Heart Rate 2017-10-09 05:43:00 [facility] Fate Temperature Oral (F) 2017-10-09 05:43:00 97.6 F [facility] Fate Weight 2017-10-08 19:48:00 Memorial Mc BMI Calculated 2017-10-08 19:48:00 Memori al Fate Height 2017-10-08 19:48:00 152.4 cm [facility] Fate BMI Calculated 2017-10-08 14:46:00 Memori al Fate Weight 2017-10-08 14:46:00 Memorial Mc Height 2017-10-04 17:19:00 152.4 cm [facility] Fate BMI Calculated 2017-09-30 20:02:00 Memori al Mc Weight 2017-09-30 20:02:00 [facility] Fate Height 2017-09-30 20:02:00 152.4 cm Memorial Mc Respitory Rate 2017-09-30 20:02:00 Memori al Mc Heart Rate 2017-09-30 20:02:00 Memorial Mc Systolic (mm Hg) 2017-09-30 20:02:00 [facility] rial Fate Diastolic (mm Hg) 2017-09-30 20:02:00 Mem orial Fate Procedures Procedure Date / Time Performed Performing Clinician Sourc e Cholecystocaecostomy 2017-10-08 06:00:00 Memoria l Mc Lithotripsy Memorial Mc Tubal ligation Memorial Fate Encounters Start End Encounter Admission Attending Care Care Encounter Source Date/Time Date/Time Type Type Clinicians Facility Department ID 2021-02-11 2021-02-11 Patient Federico, [facility] [id number] 00:00:00 00:00:00 Outreach [facility] [id number] [facility] 4.2.7.2.686 SERA [id number] 2021-01-11 2021-01-11 Case MARITZA Sierra [id number] 00:00:00 00:00:00 Management [facility] HEALTH [id number] CLINICS 4.2.7.2.686 [id number] 2020-12-26 2020-12-26 Telephone MARITZA MainJOSSE [id number] 00:00:00 00:00:00 Reina HEALTH [id number] CLINICS 4.2.7.2.686 [id number] 2020-12-20 2020-12-20 Office Res-Colpo/L [facility] [id number] 09:49:51 10:19:51 Visit eep, HEALTH 350.1.13.10 [facility] CLINICS 4.2.7.2.686 [id number] 2020-12-20 2020-12-20 Orders Doctor GARCIA [id number] 00:00:00 00:00:00 Only Unassigned, ANDRA 350.1.13.10 Roland [facility] 4.2.7.2.686 [id number] 2017-10-21 2017-10-21 Outpatient Mickey Zuñiga [facility] [id number] 15:00:00 23:59:00 [place] 2017-10-09 2017-10-09 Outpatient Mickey Zuñiga [facility] [id number] 09:19:00 15:09:00 Iverson 06 2017-10-03 2017-10-03 Outpatient Mickey Zuñiga [facility] [id number] 10:16:00 23:59:00 Iverson 2017-09-30 2017-09-30 Outpatient Mickey Zuñiga [facility] [id number] 14:39:00 23:59:00 Iverson 2017-08-16 2017-08-16 Outpatient Rogers, [facility] MH[facility] [id number] 12:14:00 23:59:00 Jonh Wong 2017-08-14 2017-08-14 Outpatient Katerina, [facility] [id number] 10:31:00 23:59:00 Clement Barbour 2015-10-13 2015-10-13 Outpatient Tea [id number] 10:11:00 23:59:00 Barry Fonseca [id number] 5.34 Results Test Description Test Time Test Comments Results Result Comments Source HEMATOLOGY 2017-10-09 9.7 [facility] Jacklyn nn 09:58:00 HEMATOLOGY 2017-10-09 251 [facility] Jacklyn nn 09:58:00 HEMATOLOGY 2017-10-09 3.95 [facility] Jacklyn nn 09:58:00 HEMATOLOGY 2017-10-09 11.9 [facility] Jacklyn nn 09:58:00 HEMATOLOGY 2017-10-09 35.7 [facility] Jacklyn nn 09:58:00 HEMATOLOGY 2017-10-09 13.2 [facility] Jacklyn nn 09:58:00 HEMATOLOGY 2017-10-09 83.7 [facility] Jacklyn nn 09:58:00 HEMATOLOGY 2017-10-09 0.1 [facility] Jacklyn nn 09:58:00 HEMATOLOGY 2017-10-09 10.0 [facility] Jacklyn nn 09:58:00 HEMATOLOGY 2017-10-09 5.9 [facility] Jacklyn nn 09:58:00 HEMATOLOGY 2017-10-09 0.3 [facility] Jacklyn nn 09:58:00 HEMATOLOGY 2017-10-09 11.1 [facility] Jacklyn nn 09:58:00 HEMATOLOGY 2017-10-09 0.8 [facility] Jacklyn nn 09:58:00 HEMATOLOGY 2017-10-09 1.3 [facility] Jacklyn nn 09:58:00 CHEM PANEL 2017-10-09 98 [facility] Jacklyn nn 09:58:00 CHEM PANEL 2017-10-09 4.1 [facility] Jacklyn nn 09:58:00 CHEM PANEL 2017-10-09 106 [facility] Jacklyn nn 09:58:00 CHEM PANEL 2017-10-09 25 [facility] Jacklyn nn 09:58:00 CHEM PANEL 2017-10-09 9.0 [facility] Jacklyn nn 09:58:00 CHEM PANEL 2017-10-09 139 [facility] Jacklyn nn 09:58:00 CHEM PANEL 2017-10-09 0.72 [facility] Jacklyn nn 09:58:00 CHEM PANEL 2017-10-09 13 [facility] Jacklyn nn 09:58:00 CHEM PANEL 2017-10-09 112 [facility] Jacklyn nn 09:58:00 CHEM PANEL 2017-10-09 12.1 [facility] Jacklyn nn 09:58:00 HEMATOLOGY 2017-10-09 09:58:00 Test Item Value Reference Range Interpretation Comme nts MCH (test code = MCH) 30.1 pg 27.0-31.0 [facility] AawzbdxPMYZZSODDH4950-42-74 09:58:0033.3[facility] HermannHEMATOLOGY 2017-10-09 09:58:0013.7[facility] HohgiwkQBIPJZQJSM6035-22-34 09:58:0090.4[facility] HermannCHEM UDGHI8657-45-48 14:37:004.1[facility] HermannCHEM JHYCS9778-87-91 14:37:000.9[facility] HermannCHEM NIQNA5861-15-67 14:37:004.6[facility] HermannCHEM KHLYQ7369-89-76 14:37:000.3[facility] UdnvqswTNDEOCJMZHKV0607-48-70 14:37:0012.9 Memorial RrskvczZHBGIPBBTZQE2806-50-04 14:37:0086[facility] HermannELECTROLYTES 2017-10-08 14:37:88463Hwnhugoe SmllzfeLJOVGLBFBITQ6812-44-15 14:37:0022[facility] LxuwwdaAGGZBDLFHWCH1480-77-70 14:37:009.7[facility] EfkqptaTSRQHAVCSGES4785-80-23 14:37:71082Gqhyrncc JqfyyywOLOCZMPUWRLL8096-66-72 14:37:000.80[facility] Mc LWSNUZLZVRRL1852-76-99 14:37:0017[facility] OlzjilwZKXGZOPSPAMG8676-80-71 14:37:00 3.9[facility]orial DpplvefRITZUEIJPJXN3915-55-30 14:37:83253Tkhbfcxw HermannHEMATOLOGY 2017-10-08 14:37:0033.7[facility]orial HqarupaBKEHZEPHTZ6674-09-91 14:37:27026Hlsfwvxo XnuupwlFLJAWQUOGQ8031-96-82 14:37:0013.9[facility]orial MdiwdszQSSILEHJXF0175-56-35 14:37:009.7[facility]orial RgzjdbkMZGPWSYLYF4892-79-43 14:37:0089.8[facility] Fate YTOMLRNUAR7167-29-91 14:37:00 Test Item Value Reference Range Interpretation Comments MCH (test code = MCH) 30.2 pg 27.0-31.0 [facility] IoytkakSTDRNRPLPN9549-08-84 14:37:0041.9[facility] HermannHEMATOLOGY 2017-10-08 14:37:0014.1[facility] XcvgwmfTLSRSCSSVZ6400-06-14 14:37:004.67[facility] UspufhnPIRBTLXUFK9159-85-86 14:37:007.0[facility] BgtelyfIIUVXYGAVU0364-61-90 14:37:00 Test Item Value Reference Range Interpretation Comments PTT (test code = PTT) 27.5 s 22.9-35.8 Memorial FuxkdgaLRYCSZIRNF3194-90-90 14:37:00 Test Item Value Reference Range Interpretation Comments PT (test code = PT) 12.9 s 12.0-14.7 Memorial FcfmvdhYPNCXCRYBK2839-51-39 14:37:000.97[facility] HermannHEMATOLOGY 2017-10-08 14:37:000.3[facility] NcxhvzlNCXAGEXKQH7262-46-89 14:37:000.1[facility] AydymzeIIAQRAQDGX1088-74-03 14:37:001.4[facility] ZuzwlluVVKCAHYIYF3234-68-50 14:37:000.6[facility] XntmxvrGOLUVRUQNE5737-08-93 14:37:005.2[facility] Mc BHBGKXHDTC0571-26-04 14:37:0074.3[facility] KnxvpddDGIXRNMSDP8253-01-17 14:37:00 4.6[facility] JwiyghkPGJJDAWMBB6212-13-83 14:37:0019.5[facility] HermannHEMATOLOGY 2017-10-08 14:37:001.0[facility] XnjjegmWINWBRTZGI4902-19-81 14:37:00See Note (10/08/17 8:37 AM)[facility] LbuebjlBMYTGYYDFN7612-96-48 14:37:00 Test Item Value Reference Range Interpretation Comments Max Amp (test code = Max Amp) 72.1 mm 50.0-70.0 [facility] UixntbcKDIMQEYFRH9071-36-62 14:37:0012.9[facility] HermannHEMATOLOGY 2017-10-08 14:37:004.0[facility] GjgsomvLMMOXNOEBZ9288-39-00 14:37:002.0[facility] XoghfqwJLOSWXZKWS2809-26-28 14:37:00 Test Item Value Reference Range Interpretation Comments R-time (test code = R-time) 5.9 min 5.0-10.0 [facility]iwefqkRBRMJHBORL8778-39-81 14:37:00 Test Item Value Reference Range Interpretation Comments Angle (test code = Angle) 70.3 degrees 53.0-72.0 [facility]cosNfhuzgjZQKCVCPVRX0373-26-69 14:37:00 Test Item Value Reference Range Interpretation Comments K-time (test code = K-time) 1.4 min 1.0-3.0 [facility] EPHYGZH5231-10-45 14:37:00Negative (10/08/17 8:37 AM) [facility] HermannCHEM PFLHL7346-01-09 14:37:000.4[facility] HermannCHEM PANEL 2017-10-08 14:37:000.1[facility] HermannCHEM GZSLC1189-09-47 14:37:0028[facility] HermannCHEM OPKMI2217-78-42 14:37:0018[facility] HermannCHEM DIWYO6773-15-96 14:37:0068[facility] HermannCHEM IQPJB4041-16-34 14:37:008.7[facility] Mc
[2021-07-01 13:16] LABS: Absolute Lymphocytes (CBC) 1.3 K/uL (0.7-4.9); Basophils % 0.4 % (0-1.3); Hematocrit 46.4 % (36.0-45.0); Lymphocytes % 5.1 % (15.3-44.8); MPV 9.4 fL (7.6-11.3); RBC Red Blood Cell Count 5.17 M/uL (3.86-4.86)
[2021-07-01 13:43] LABS: Blood Morphology Comment NOT SEEN (NOT SEEN); Platelet Estimate ADEQ
[2021-07-01 15:52] LABS: ALT/SGPT 51 U/L (12-78); AST/SGOT 17 U/L (15-37); Albumin 3.4 g/dL (3.4-5.0); Alkaline Phosphatase 73 U/L (45-117); BUN Blood Urea Nitrogen 25 mg/dL (7-18); Bicarbonate 22 mmol/L (21-32); Bilirubin Direct < 0.1 mg/dL (0-0.2); Bilirubin Total 0.4 mg/dL (0.2-1.0); Glucose Level 170 mg/dL (74-106); Lipase 213 U/L (73-393); Potassium 4.2 mmol/L (3.5-5.1); Protein, Total 7.9 g/dL (6.4-8.2); Sodium Level 137 mmol/L (136-145)
--- NOTE | 2021-07-01 16:01 | RAD REPORT ---
EXAM DESCRIPTION: CTAbdomen Pelvis W Contrast - 07/01/2021 3:33 pm CLINICAL HISTORY: Abdominal pain. ABD PAIN COMPARISON: 09/07/2018 TECHNIQUE: Biphasic CT imaging of the abdomen and pelvis was performed with 100 ml non-ionic IV cont rast. All CT scans are performed using dose optimization technique as appropriate and may include automated exposure control or mA/KV adjustment according to patient size. FINDINGS: The lung bases are clear. Hepatic steatosis. A few low-density liver lesions are noted which are unchanged and almost certainly benign. Cholecystectomy. No adrenal lesions are seen. Low-density right lower pole renal lesions con sistent with a cyst. Nonobstructing 4 millimeters stone left kidney noted. No hydronephrosis. Bladder is unremarkable. Right adnexal lesion noted which has decreased in size since 2018 measuring 2.8 carlton timeters, previously 5.3 centimeters. This is almost certainly benign. Normal appendix. No bowel obstruction. Small fat containing umbilical hernia. No suspicious bony findings. IMPRESSION: No acute intra-abdominal or pelvic finding.
[2021-07-01 16:46] LABS: Urine Blood 1+ (Negative); Urine Glucose Negative (Negative); Urine Protein Negative (Negative)
--- NOTE | 2021-07-01 16:50 | EDPHYS ---
Physician Documentation [facility] Name: Miryam Leon Age: 55 yrs Sex: Female : 1965 Arrival Date: 07/01/2021 Time: 12:17 Bed 30 Private MD: ED Physician Jordan Vargas HPI: 07/01 16:44 This 55 yrs old Female presents to ER via Ambulatory with complaints of jr8 Abdominal Pain, Vomiting. 16:44 The patient presents with abdominal pain in the upper abdomen. Onset: The jr8 symptoms/episode began/occurred gradually. The symptoms radiate to back. Associated signs and symptoms: Pertinent positives: nausea and vomiting. The symptoms are described as burning. Modifying factors: The symptoms are alleviated by nothing, the symptoms are aggravated by nothing. Severity of pain: At its worst the pain was moderate in the emergency department the pain is unchanged. The patient has not experienced similar symptoms in the past. The patient has been recently seen by a physician: the patient's primary care provider, with different complaint(s). Patient stated that she had also noticed for the past week or so black in her stool.. [employer]: 17:27 LMP N/A - control method ll1 Historical: - Allergies: 12:58 No Known Allergies; iw - PMHx: 12:58 Hypertension; iw - PSHx: 12:58 Cholecystectomy; iw - Immunization history:: Client reports receiving the 2nd dose of the Covid vaccine. - Social history:: Smoking status: Patient denies any tobacco usage or history of. ROS: 16:44 Eyes: Negative for injury, pain, redness, and discharge, ENT: Negative for injury, jr8 pain, and discharge, Neck: Negative for injury, pain, and swelling, Cardiovascular: Negative for chest pain, palpitations, and edema, Respiratory: Negative for shortness of breath, cough, wheezing, and pleuritic chest pain, Back: Negative for injury and pain, MS/Extremity: Negative for injury and deformity, Skin: Negative for injury, rash, and discoloration, Neuro: Negative for headache, weakness, numbness, tingling, and seizure. 16:44 Abdomen/GI: Positive for abdominal pain, nausea and vomiting, black/tarry stool. Exam: 16:44 Constitutional: This is a well developed, well nourished patient who is awake, alert, jr8 and in no acute distress. Cardiovascular: Regular rate and rhythm with a normal S1 and S2. No gallops, murmurs, or rubs. Normal PMI, no JVD. No pulse deficits. Respiratory: Lungs have equal breath sounds bilaterally, clear to auscultation and percussion. No rales, rhonchi or wheezes noted. No increased work of breathing, no retractions or nasal flaring. Back: No spinal tenderness. No costovertebral tenderness. Full range of motion. Skin: Warm, dry with normal turgor. Normal color with no rashes, no lesions, and no evidence of cellulitis. MS/ Extremity: Pulses equal, no cyanosis. Neurovascular intact. Full, normal range of motion. Neuro: Awake and alert, GCS 15, oriented to person, place, time, and situation. Cranial nerves II-XII grossly intact. Motor strength 5/5 in all extremities. Sensory grossly intact. Cerebellar exam normal. Normal gait. 16:44 Abdomen/GI: Inspection: obese Bowel sounds: active, all quadrants, Palpation: soft, in all quadrants, mild abdominal tenderness, in the right upper quadrant and left upper quadrant, mass, is not appreciated, rebound tenderness, is not appreciated, voluntary guarding, is not appreciated, involuntary guarding, is not appreciated, no appreciated organomegaly, Rectal exam: rectal tone normal, Stool: brown, guaiac positive, hemorrhoid(s), are not appreciated, mass, is not appreciated, swelling, is not appreciated, tenderness, is not appreciated, the exam is chaperoned by the nurse, Indicators: McBurney's point is not tender, Gamboa's sign is negative, Rovsing's sign is negative, Liver: tenderness, is not appreciated. Vital Signs: 12:55 BP 113 / 86; Pulse 116; Resp 18; Temp 97.8; Pulse Ox 97% on R/A; Weight 92.99 kg; iw 15:16 BP 110 / 68; Pulse 93; Resp 18; Pulse Ox 94% on R/A; ll1 17:10 BP 115 / 82; Pulse 84; Resp 17; Temp 97.7; Pulse Ox 97% ; Pain 0/10; ll1 MDM: 14:41 Patient medically screened. jr8 16:44 Data reviewed: vital signs, nurses notes, lab test result(s), radiologic studies, CT jr8 scan. Data interpreted: Pulse oximetry: on room air is 94 %. Interpretation: normal. Counseling: I had a detailed discussion with the patient and/or guardian regarding: the historical points, exam findings, and any diagnostic results supporting the discharge/admit diagnosis, lab results, radiology results, the need for outpatient follow up, a service specialist, to return to the emergency department if symptoms worsen or persist or if there are any questions or concerns that arise at home. ED course: Patient had elevated white cell count. Mild tenderness to the upper abdomen and back. CT revealed no acute intra-abdominal or pelvic findings. Stool was brown but was faintly positive on the guaiac. No hematemesis and no gross bleeding in the rectal vault. Patient does not have any drop in hemoglobin or hematocrit and otherwise hemodynamically stable. Will start patient on a PPI and will refer to gastroenterology for further evaluation. Discussed with patient if she were to worsen that she needs to come back for further evaluation. Patient is good with this plan at this time.. 07/01 12:59 Order name: Basic Metabolic Panel; Complete Time: 16:04 07/01 12:59 Order name: CBC with Diff; Complete Time: 14:41 07/01 12:59 Order name: Hepatic Function; Complete Time: 16:04 07/01 12:59 Order name: Lipase; Complete Time: 16:04 07/01 13:31 Order name: Manual Differential; Complete Time: 14:41 [facility] 07/01 16:45 Order name: Urine Dipstick-Ancillary; Complete Time: 16:51 [facility] 07/01 12:59 Order name: IV Saline Lock; Complete Time: 14:54 07/01 12:59 Order name: Labs collected and sent; Complete Time: 14:54 07/01 13:20 Order name: Labs - recollect needed: green top; Complete Time: 15:16 07/01 14:42 Order name: CT Abd/Pelvis - IV Contrast Only; Complete Time: 16:04 jr8 Administered Medications: No medications were administered Disposition: 17:59 Co-signature as Attending Physician, Jordan Vargas MD. rn Disposition Summary: 07/01/21 16:49 Discharge Ordered Location: Home jr8 Problem: new jr8 Symptoms: have improved jr8 Condition: Stable jr8 Diagnosis - Abdominal pain, Generalized jr8 - GI Bleed/ Gastrointestinal hemorrhage, unspecified jr8 Followup: jr8 - With: Fredi Shannon MD - When: 2 - 3 days - Reason: Recheck today's complaints, Continuance of care, Re-evaluation by your physician Discharge Instructions: - Discharge Summary Sheet jr8 - Abdominal Pain, Adult jr8 - Gastrointestinal Bleeding jr8 Forms: - Medication Reconciliation Form jr8 - Thank You Letter jr8 - Antibiotic Education jr8 - Prescription Opioid Use jr8 Prescriptions: - Protonix 40 mg Oral tablet,delayed release (DR/EC) - take 1 tablet by ORAL route 2 times per day; 60 tablet; Refills: 0, Product jr8 Selection Permitted - Zofran 4 mg Oral Tablet - take 1 tablet by ORAL route every 12 hours As needed; 20 tablet; Refills: 0, jr8 Product Selection Permitted - dicyclomine 20 mg Oral Tablet - take 1 tablet by ORAL route 3 times per day As needed; 21 tablet; Refills: 0, jr8 Product Selection Permitted Signatures: Dispatcher [employer] EDWI Vonda Good RN RN sv Williams, Irene, RN RN iw Nieto, Roman, MD MD rn Roszak, Josh, PA PA jr8 Corrections: (The following items were deleted from the chart) 16:48 16:44 Abdomen/GI: Inspection: obese Bowel sounds: active, all quadrants, Palpation: jr8 soft, in all quadrants, mild abdominal tenderness, in the right upper quadrant and left upper quadrant, mass, is not appreciated, rebound tenderness, is not appreciated, voluntary guarding, is not appreciated, involuntary guarding, is not appreciated, no appreciated organomegaly, Rectal exam: rectal tone normal, Stool: guaiac positive, black, hemorrhoid(s), are not appreciated, mass, is not appreciated, swelling, is not appreciated, tenderness, is not appreciated, the exam is chaperoned by the nurse, Indicators: McBurney's point is not tender, Gamboa's sign is negative, Rovsing's sign is negative, Liver: tenderness, is not appreciated, jr8 16:49 16:44 ED course: Patient had elevated white cell count. Mild tenderness to the upper jr8 abdomen and back. CT revealed no acute intra-abdominal or pelvic findings. Stool was brown but was faintly positive on the guaiac.. jr8 16:51 16:44 ED course: Patient had elevated white cell count. Mild tenderness to the upper jr8 abdomen and back. CT revealed no acute intra-abdominal or pelvic findings. Stool was brown but was faintly positive on the guaiac. Patient does not have any drop in hemoglobin or hematocrit and otherwise hemodynamically stable. Will start patient on a PPI and will refer to gastroenterology for further evaluation. Discussed with patient if she were to worsen that she needs to come back for further evaluation. Patient is good with this plan at this time.. jr8
--- NOTE | 2021-07-01 16:50 | ER ---
Nurse's Notes [facility] Name: Miryam Leon Age: 55 yrs Sex: Female : 1965 Arrival Date: 07/01/2021 Time: 12:17 Bed 30 Private MD: Diagnosis: Abdominal pain, Generalized;GI Bleed/ Gastrointestinal hemorrhage, unspecified Presentation: 07/01 12:55 Chief complaint: Patient states: has had vomiting and mid abd pain, this week she had iw black stools, and has a lot of pain in her body, was prescribed amoxicillin for a cough by her doctor this week. Coronavirus screen: At this time, the client does not indicate any symptoms associated with coronavirus-19. Ebola Screen: Patient negative for fever greater than or equal to 101.5 degrees Fahrenheit, and additional compatible Ebola Virus Disease symptoms Patient denies exposure to infectious person. Patient denies travel to an Ebola-affected area in the 21 days before illness onset. No symptoms or risks identified at this time. Initial Sepsis Screen: Does the patient meet any 2 criteria? No. Patient's initial sepsis screen is negative. Does the patient have a suspected source of infection? No. Patient's initial sepsis screen is negative. Risk Assessment: Do you want to hurt yourself or someone else? Patient reports no desire to harm self or others. Onset of symptoms was June 25, 2021. 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 - Social history:: Smoking status: Patient denies any tobacco usage or history of. Screenin:17 Abuse screen: Denies threats or abuse. Nutritional screening: No deficits noted. ll1 Tuberculosis screening: No symptoms or risk factors identified. 15:20 Fall Risk IV access (20 points). Total Reis Fall Scale indicates No Risk (0-24 pts). ll1 Assessment: 15:17 General: Appears in no apparent distress. Behavior is calm, cooperative, appropriate ll1 for age. Pain: Complains of pain in epigastric Quality of pain is described as aching. Neuro: No deficits noted. Cardiovascular: No deficits noted. Respiratory: No deficits noted. GI: Abdomen is round Bowel sounds present X 4 quads. Abd is soft Abdomen is tender to palpation in epigastric area Reports upper abdominal pain, cramping, diarrhea, nausea, vomiting. : No deficits noted. Vital Signs: 12:55 BP 113 / 86; Pulse 116; Resp 18; Temp 97.8; Pulse Ox 97% on R/A; Weight 92.99 kg; iw 15:16 BP 110 / 68; Pulse 93; Resp 18; Pulse Ox 94% on R/A; ll1 17:10 BP 115 / 82; Pulse 84; Resp 17; Temp 97.7; Pulse Ox 97% ; Pain 0/10; ll1 ED Course: 12:17 Patient arrived in ED. mr 12:58 Triage completed. iw 13:22 Initial lab(s) drawn, by me, sent to lab. Inserted saline lock: 20 gauge in right iw antecubital area, using aseptic technique. Blood collected. 14:40 Emil Kapoor PA is PHCP. jr8 14:41 Jordan Vargas MD is Attending Physician. jr8 14:53 Madison Castano, ZACK is Primary Nurse. ll1 14:53 Arm band placed on Patient placed in an exam room, on a stretcher. ll1 15:17 Patient has correct armband on for positive identification. Bed in low position. Call ll1 light in reach. Side rails up X 1. Pulse ox on. NIBP on. 15:33 CT Abd/Pelvis - IV Contrast Only In Process Unspecified. [facility] 16:49 Fredi Shannon MD is Referral Physician. jr8 17:10 Served as a commercial loan specialist during rectal exam. ll1 17:26 IV discontinued, intact, bleeding controlled, No redness/swelling at site. Pressure ll1 dressing applied. Administered Medications: No medications were administered Outcome: 16:49 Discharge ordered by . jr8 17:13 Patient left the ED. ll1 17:13 Discharged to home ambulatory. ll1 17:13 Condition: stable 17:13 Discharge instructions given to patient, family, Instructed on discharge instructions, follow up and referral plans. medication usage, Demonstrated understanding of instructions, follow-up care, medications, Prescriptions given X 1. Signatures: Dispatcher [employer] BEENA Decker Marnie Mony Biswas, RN RN iw Emil Kapoor PA PA jr8 Madison Castano RN RN ll1
[2021-07-01 17:24] VITALS: TEMP 97.8
[2021-07-01 17:26] VITALS: BP 110/68; O2SAT 94
== END 2021-07-01 17:13 | disposition home or self-care (01) ==
LOC: ER 12:14
DX: K92.2 Gastrointestinal hemorrhage, unspecified (principal); I10 Essential (primary) hypertension
CPT/HCPCS: 36415; 74177; 80048; 80076; 81003; 82565; 83690; 85025; 99284; Q9967

== ENCOUNTER 2022-02-25 15:06 | Emergency (ER) | payer OTHER ==
--- OUTSIDE RECORDS SUMMARY | 2022-02-25 15:11 | XMS REPORT | Continuity of Care Document ---
:1965 Author Organization [facility] t Address [address] [place] [address] Care Team Providers Name Role Phone Jero HURST, A Primary Care Physician Gopal MSN, A Attending Clinician Reid Caballero DO Attending Clinician Rigo [place] Attending Clinician Etelvina HURST Attending Clinician Res-Colpo/Leep Attending Clinician Unavailable Doctor Unassigned, Name Attending Clinician Unavailable Payers Payer Name Policy Type Policy Number Effective Date Expiration Date S ource Advance Directives Directive Decision Effective Termination Comments Source Date Date Healthcare Agents on N/A [facility] ersity FileNameRelation[facility] Agent Medical RelationshipCommunicationJose [facility] Care [phone] (Mobile) Problems Condition Condition Condition Status Onset Resolution Last Treating Co mments Source Name Details Category Date Date Treatment Clinician Date Cervical Cervical Disease Active Overview: Un eduardo high risk high risk 2-04 Formattin i ty of human human 00:00: g of this [place] papillomav papillomav 00 note Me dical irus (HPV) irus (HPV) might be Branch DNA test DNA test different positive positive from the original. Awaiting pap smear results ASCUS with ASCUS with Disease Active 2019-12 Overview : Univers positive positive 2-08 Formattin ity of high risk high risk 00:00: [place] of [place] HPV HPV 00 note Medical cervical cervical might be Bran ch different from the original. 10/2020, see records2021, patient scheduled for Colposcop y Screening Screening Disease Active 2019-12 Uni vers examinatio examinatio 08 it y of n for STD n for STD 00:[place] (sexually (sexually 00 Medi loi transmitte transmitte Br anch d disease) d disease) SURGICAL Diagnosis Active 2016-122017-10-21 M emoria F/U 12-21 15:01:00 l SURGICAL 00:00: Javed n F/U 00 Active 10/21/2017 [facility] CALCULUS Diagnosis Active 2016-122017-10-09 M emoria OF GALL 12:46:00 l BLADDER CALCULUS 00:00: Jacklyn nn WITH ACUTE OF GALL 00 MANNY BLADDER WITH ACUTE MANNY Active 09/30/2017 [facility] LIVER CYST Diagnosis Active 2016-122017-09-30 Memoria 0 14:46:00 l LIVER 00:00: Mc CYST 00 Active 09/30/2017 [facility] DX; Diagnosis Active 2017-08-16 Mem oria K85.92= 8-22 12:21:00 l DX; 00:00: [place] K85.92= 00 Active 07/23/2017 [place] K80.0 Diagnosis Active 2017-08-14 Mem oria 8-22 10:39:00 l K80.0 00:00: Mc 00 Active 07/23/2017 [facility] DX: Diagnosis Active 2017-07-23 Mem oria E66.9=OBES 8- 10:47:00 l ITY, DX: 00:00: Mc UNSPECIFIE E66.9=OBES 00 D/Z71.3=DI ITY, E UNSPECIFIE D/Z71.3=DI E Active 07/17/2017 [facility] Adnexal Adnexal Disease Active 2015-12 Univers cyst cyst 0-10 ity of 00:00: [place] [address] Medical Branch Irregular Irregular Disease Active 2015-12 Uni vers menstrual menstrual 0-10 ity of cycle cycle 00:00: [place] [address] Medical Branch Well woman Well woman Disease Active U nivers exam exam 4-21 ity of 00:00: [place] [address] Medical Branch BMI BMI Disease Active Overview: Univer s 39.0-39.9, 39.0-39.9, 4-08 Formattin ity of adult adult 00:00: g of this 00 note Medical might be Branch different from the original. 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[employer] History of History of Disease Active Bert arellano bilateral bilateral 4-08 ity of ligation ligation 00:00: [place] of 00 Medical fallopian fallopian Bran ch tubes tubes Calculus Problem Active 2017-10-24 Mem oria in biliary 04:57:46 l tract Calculus Javed n (disorder) in biliary tract (disorder) Active Problem 10/24/2017 [facility] [place] Liver cyst Problem Active 2017-10-24 M emoria (disorder) 04:57:46 l Liver Mc cyst (disorder) Active Problem 10/24/2017 [facility] [place] Morbid Problem Active 2017-10-24 Memor ia obesity 04:57:46 l (disorder) Morbid Herm deacon obesity (disorder) Active Problem 10/24/2017 [facility] [place] Hyperchole Problem Resolve 2017-10-24 Memoria sterolemia d 04:57:46 l (disorder) Javed n Hyperchole sterolemia (disorder) Resolved Problem 10/24/2017 [facility] [place] HLD HLD Disease Active Univers (hyperlipi (hyperlipi it y of demia) demia) [facility] Allergies, Adverse Reactions, Alerts This patient has no known allergies or adverse reactions. Social History Social Habit Start Date Stop Date Quantity Comments Source Exposure to Not sure [facility] SARS-CoV-2 (event) Medica l Branch Alcohol intake 2022-02-22 2022-02-22 0 /d [facility] 00:00:00 00:00:00 Medical Branch Social History 2017-10-04 2017-10-04 [facility] 17:29:24 17:29:24 Sex Ass[birth year] [facility] 00:00:00 00:00:00 Medical Branch Smoking Status Start Date Stop Date Source Never smoker [facility] Medical Branch Medications Ordered Filled Start Stop Current Ordering Indication Dosage Frequency Signature Comments Components Source Medication Medication Date Date Medication? Clinician (SIG) Name Name ASPIRIN/THALIA 2021- No Take by U nivers TAMINOPHEN/ 3-24 -24 mouth. ity o f CAFFEINE 11:42: 00:00 [place] (EXCEDRIN 38 :00 Medical MIGRAINE Branch ORAL) miSOPROStol 2017-12- No 200ug Take 1 Un eduardo 200 mcg 0-18 -24 tablet by ity of tablet 00:00: 00:00 mouth [place] 00 :00 SEE-INSTRU Medical CTIONS. Branch Take one tab the night before and one tab the morning of procedure conjugated 2016-12- No [id number] .5g Insert 0.5 Univers estrogens 12-30-24 g into ity of (PREMARIN) 00:00: 00:00 vagina 2 [place] 0.625 00 :00 (two) Medical mg/gram times per Branch vaginal week cream (vaginal dryness). pantoprazol 2016-12 Yes 40 mg = 1 M emoria e 40 MG 1-20 tab, PO, l Enteric 21:34: Daily, # Javed n Coated 00 30 tab, 5 Tablet Refill(s), [Protonix] Pharmacy: [facility] Famotidine 2016-12 Yes 20 mg = 1 Me moria 20 MG Oral 1-20 tab, PO, l Tablet 21:34: BID, PRN [place] 00 Heartburn, # 60 tab, 5 Refill(s), [facility] heparin 2016-12 No Notes: Memoria 1-09 porcine l 03:21: heparin Mc 00 [place] 5/325 2016-12 Yes 1 tab, PO, Memoria oral tablet 1-08 Q6H, # 30 l 18:41: tab, 0 [place] 00 Refill(s), given to patient Cipro 500 2016-12 Yes 500 mg = 1 Me moria mg oral 1-08 tab, PO, l tablet 18:41: Q12H, X 7 Javed n 00 day, # 14 tab, 0 Refill(s), Pharmacy: [facility] docusate 2016-12 Yes 100 mg = 1 Mem oria sodium 100 1-08 cap, PO, l mg oral 18:41: Daily, # Javed n capsule 00 14 cap, 0 Refill(s), Pharmacy: [facility] docusate 2016-12 No Notes: Memoria 1-08 (Same as: l 15:00: Colace) (Do Not Crush) ciprofloxac 2016-12 No Notes: Do M emoria in 12-08 not l 21:00: refrigerat e acetaminoph 2016-12 No Notes: Do M emoria en-codeine 12-08 not exceed l #3 18:17: 4gm/day of acetaminop hen. (Same as: Tylenol with Codeine # 3) acetaminoph 2016-12 No Notes: Do M emoria en-codeine 12-08 not exceed l #3 18:16: 4gm/day of acetaminop hen. (Same as: Tylenol with Codeine # 3) Dilaudid 2016-12 No Notes: Memoria 12-08 Same as: l 18:14: Dilaudid Plasma-Lyte 2016-12 No Notes: Harrison yoli A PH-7.4 12-08 WASTE: F/P l 1000 ml INJ 18:13: - Sink; E H ermann 1,[address] [place] [address] Trash Bin ketOROLAC 2016-12 No IV, ONCE Harrison yoli (ANES) 12-08 l 18:09: neostigmine 2016-12 No Route: IV, Memoria (ANES) 12-08 Drug form: l 18:09: INJ, ONCE, Stop date: 10/08/17 12:09:00 SEED SORTER glycopyrrol 2016-12 No Route: IV, Memoria ate (ANES) 12-08 Drug form: l 18:09: INJ, ONCE, Stop date: 10/08/17 12:09:00 SEED SORTER ondansetron 2016-12 No Route: IV, Memoria (ANES) 12-08 Drug form: l 18:09: INJ, ONCE, Stop date: 10/08/17 12:09:00 SEED SORTER acetaminoph 2016-12 No Route: IV, Memoria en (ANES) 12-08 Drug form: l 17:05: INJ, ONCE, Stop date: 10/08/17 11:05:00 SEED SORTER fentaNYL 2016-12 No Route: IV, Mem oria (ANES) 12-08 Drug form: l 16:35: INJ, ONCE, Stop date: 10/08/17 10:35:00 SEED SORTER propofol 2016-12 No Route: IV, Mem oria (ANES) 12-08 Drug form: l 16:30: INJ, ONCE, Stop date: 10/08/17 10:30:00 SEED SORTER lidocaine 2016-12 No Route: IV, Me moria (ANES) 12-08 Drug form: l 16:30: INJ, ONCE, Stop date: 10/08/17 10:30:00 SEED SORTER rocuronium 2016-12 No Route: IV, M emoria (ANES) 12-08 Drug form: l 16:30: INJ, ONCE, Stop date: 10/08/17 10:30:00 SEED SORTER midazolam 2016-12 No Route: IV, Me moria (ANES) 12-08 Drug form: l 16:30: SOLN, ONCE, Stop date: 10/08/17 10:30:00 SEED SORTER famotidine 2016-12 No Route: IV, M emoria (ANES) 12-08 Drug form: l 16:20: INJ, ONCE, Stop date: 10/08/17 10:20:00 SEED SORTER phenylephri 2016-12 No Route: IV, Memoria ne (ANES) 12-08 Drug form: l 16:20: INJ, ONCE, Stop date: 10/08/17 10:20:00 SEED SORTER dexamethaso 2016-12 No Route: IV, Memoria ne (ANES) 12-08 Drug form: l 16:15: INJ, ONCE, Stop date: 10/08/17 10:15:00 SEED SORTER ceFAZolin 2016-12 No Route: IV, Me moria (ANES) 12-08 Drug form: l 16:15: INJ, ONCE, Stop date: 10/08/17 10:15:00 SEED SORTER ANES 2016-12 No 4 mg, Memoria ondansetron 12-08 Route: l 16:10: IVP, ONCE, Dosing Weight 82.273, kg, PRN Nausea & Vomiting, Start date: 10/08/17 10:10:00 SEED SORTER ANES 2016-12 No 6.25 mg, Memoria promethazin 12-08 Route: l e 16:10: IVPB, Mc 00 ONCE, Dosing Weight 82.273, kg, PRN Nausea & Vomiting, Start date: 10/08/17 10:10:00 SEED SORTER ANES 2016-12 No 0.5 mg, Memoria HYDROmorpho 12-08 Route: l ne 16:10: IVP, [place] 00 Q5Min, Dosing Weight 82.273, kg, PRN Pain Score 7-10, Start date: 10/08/17 10:10:00 SEED SORTER, Duration: 4 doses or times, Stop date: Limited # of times ANES 2016-12 No 5 mg, Memoria oxyCODONE 12-08 Route: PO, l 16:10: Drug form: Mc 00 TAB, Q4H, Dosing Weight 82.273, kg, PRN Pain Score 4-6, Start date: 10/08/17 10:10:00 SEED SORTER, Duration: 30 day, Stop date: 11/07/17 10:09:00 SEED SORTER ANES 2016-12 No 0.4 mg, Memoria naloxone 12-08 Route: l 16:10: IVP, [place] 00 Q2MIN, Dosing Weight 82.273, kg, PRN Narcotic Reversal, Start date: 10/08/17 10:10:00 SEED SORTER, Duration: 8 doses or times, Stop date: Limited # of times ANES 2016-12 No 0.2 mg, Memoria flumazenil 12-08 Route: l 16:10: IVP, PRN, Mc 00 Dosing Weight 82.273, kg, PRN Benzodiaze pine Reversal, Initial dose, Start date: 10/08/17 10:10:00 SEED SORTER, Duration: 30 day, Stop date: 11/07/17 10:09:00 SEED SORTER ANES 2016-12 No 1 mg, Memoria metoprolol 12-08 Route: l 16:10: IVP, [place] 00 Q5Min, Dosing Weight 82.273, kg, PRN Other -See Comment, Start date: 10/08/17 10:10:00 SEED SORTER, Duration: 5 doses or times, Stop date: Limited # of times ANES 2016-12 No 10 mg, Memoria labetalol 12-08 Route: l 16:10: IVP, Mc 00 Q5Min, Dosing Weight 82.273, kg, PRN Elevated BP, Start date: 10/08/17 10:10:00 SEED SORTER, Duration: 5 doses or times, Stop date: Limited # of times ANES 2016-12 No 10 mg, Memoria hydrALAZINE 12-08 Route: l 16:10: IVP, [place] 00 Q20Min, Dosing Weight 82.273, kg, PRN Elevated BP, Start date: 10/08/17 10:10:00 SEED SORTER, Duration: 2 doses or times, Stop date: Limited # of times LR 1000 mL 2016-12 No Route: IV, M emoria INJ (ANES) 12-08 Total l 15:15: Volume: Mc 00 1,000, Start date: 10/08/17 9:15:00 SEED SORTER, Stop date: 10/08/17 10:15:00 SEED SORTER tramadol 50 2016-12 No Notes: Not Memoria [...] ONCE, Priority: STAT, Start date: 10/08/17 8:56:00 SEED SORTER, Stop date: 10/08/17 8:56:00 SEED SORTER ibuprofen 2016-12 Yes 200 mg, Memor ia 07 PO, Q6H, l 14:55: PRN Pain Score 6-10, 0 Refill(s) Excedrin 2016-12 Yes 2 tab, PO, Mem oria 07 Q6H, as l 14:55: needed for migraines, 0 Refill(s) Immunizations Ordered Filled Immunization Date Status Comments Sour e Immunization Name Name HEP B, Adult Dosage 2017-04-24 Completed Unive rsity of 00:00:00 [facility] HEP B, Adult Dosage 2017-03-13 Completed Unive rsity of 00:00:00 [facility] TDAP 2012-09-04 Completed University of 00:00:00 [facility] Vital Signs Vital Name Observation Time Observation Value Comments Source Systolic blood 2022-02-22 15:06:00 130 mm[Hg] Univer sity of pressure [facility] Diastolic blood 2022-02-22 15:06:00 78 mm[Hg] Unive rsity of pressure [facility] Heart rate 2022-02-22 15:01:00 88 /min [facility] Body temperature 2022-02-22 15:01:00 36.28 Adriana [facility] 2022-02-22 15:01:00 [facility] /[facility] height 2022-02-22 15:01:00 152.4 cm [facility] Body weight 2022-02-22 15:01:00 91.445 kg [facility] BMI 2022-02-22 15:01:00 39.37 kg/m2 [facility] BMI Calculated 2017-10-21 21:20:00 Memori al [place] Weight 2017-10-21 21:20:00 [facility] [place] Height 2017-10-21 21:20:00 152.4 cm [facility] [place] Respitory Rate 2017-10-21 21:20:00 Memori al [place] Heart Rate 2017-10-21 21:20:00 Memorial Mc Systolic (mm Hg) 2017-10-21 21:20:00 [place] rial [place] Diastolic (mm Hg) 2017-10-21 21:20:00 Mem orial Mc Temperature Oral (F) 2017-10-09 17:22:00 98.2 F [facility] [place] Heart Rate 2017-10-09 17:22:00 Memorial Mc Respitory Rate 2017-10-09 17:22:00 Memori al Mc Systolic (mm Hg) 2017-10-09 17:22:00 [place] rial Mc Diastolic (mm Hg) 2017-10-09 17:22:00 Mem orial [place] Systolic (mm Hg) 2017-10-09 13:00:00 Harrison rial [place] Diastolic (mm Hg) 2017-10-09 13:00:00 Mem orial Mc Heart Rate 2017-10-09 13:00:00 Memorial Mc Respitory Rate 2017-10-09 13:00:00 Memori al Mc Temperature Oral (F) 2017-10-09 13:00:00 97.9 F Memorial Mc Systolic (mm Hg) 2017-10-09 05:43:00 [place] rial Mc Diastolic (mm Hg) 2017-10-09 05:43:00 Mem orial [place] Respitory Rate 2017-10-09 05:43:00 Memori al [place] Heart Rate 2017-10-09 05:43:00 [facility] [place] Temperature Oral (F) 2017-10-09 05:43:00 97.6 F Memorial Mc Weight 2017-10-08 19:48:00 [facility] [place] BMI Calculated 2017-10-08 19:48:00 Memori al [place] Height 2017-10-08 19:48:00 152.4 cm Memorial Mc BMI Calculated 2017-10-08 14:46:00 Memori al [place] Weight 2017-10-08 14:46:00 Memorial Mc Height 2017-10-04 17:19:00 152.4 cm [facility] [place] BMI Calculated 2017-09-30 20:02:00 Memori al [place] Weight 2017-09-30 20:02:00 [facility] [place] Height 2017-09-30 20:02:00 152.4 cm [facility] [place] Respitory Rate 2017-09-30 20:02:00 Memori al Mc Heart Rate 2017-09-30 20:02:00 [facility] [place] Systolic (mm Hg) 2017-09-30 20:02:00 Harrison rial [place] Diastolic (mm Hg) 2017-09-30 20:02:00 Mem orial Mc Procedures Procedure Date / Time Performed Performing Clinician [facility] e POCT TEST 2022-02-22 00:00:00 Sylvia Herron [facility] Cholecystocaecostomy 2017-10-08 06:00:00 Memoria l [place] Lithotripsy Memorial Mc Tubal ligation Memorial Mc Encounters Start End Encounter Admission Attending Care Care Encounter Source Date/Time Date/Time Type Type Clinicians Facility Department ID 2022-02-22 2022-02-22 Office TEAGAN Herron [id number] Univers 10:30:00 11:59:38 Visit Sylvia Hernandez [facility] [id number] [facility] [id number] Malik as MATERNAL [id number] Med ical & CHILD [address] [place] [address] 2021-02-11 2021-02-11 Patient Federico [facility] [id number] 00:00:00 00:00:00 Outreach [facility] [id number] [facility] [id number] SERA [id number] 2021-01-11 2021-01-11 [facility] [id number] 00:00:00 00:00:00 Management Gail Y [facility] [id number] CLINICS [id number] [id number] 2020-12-26 2020-12-26 Telephone Etelvina [facility] [id number] 00:00:00 00:00:00 Reina [facility] [id number] CLINICS [id number] [id number] 2020-12-20 2020-12-20 Office Res-Colpo/L [facility] [id number] 09:49:51 10:19:51 Visit [facility] [id number] [facility] [id number] 2020-12-20 2020-12-20 Orders Doctor JOSE [id number] 00:00:00 00:00:00 Only Unassigned, ANDRA [id number] [place] [facility] 4.2.7.2.686 [id number] 2017-10-21 2017-10-[address] [id number] Memoria 21:00:00 05:59:00 r Mc [facility] 2017-10-[facility] 2017-10-[address] [facility] [id number] Memoria 15:19:00 21:09:00 r Mc 06 l [facility] [place] 2017-10-03 2017-10-04 Outpatient [facility] [id number] Memoria 15:16:00 04:59:00 r [place] 05 l [place] Jacklyn nn 2017-09-30 2017-10-[address] [facility] [id number] Memoria 19:39:00 04:59:00 r [place] 03 l Transplant Jacklyn nn Ctr 2017-08-16 2017-08-17 Outpatient [facility] [id number] [id number] Memoria 17:14:00 04:59:00 r Mc 01 l [facility] 2017-08-14 2017-08-15 Outpatient [facility] [id number] [id number] Memoria 15:31:00 04:59:00 r Mc 02 l [facility] 2015-10-13 2015-10-14 Outpt Diag nullFlavo [facility] [id number] Memoria 16:11:00 05:59:00 Services r Outpatient 00 l [facility] Results Test Description Test Time Test Comments Results Result Comments Source POCT TEST 2022-02-22 15:06:00 Test Item Value Reference Range Interpretation Comme nts POCT PREG (test code = 1605) Negative On board controls acceptable with C Line (test code = 3574) Yes POCT PREG LOT # (test code = 3575) POCT PREG TEST DATE (test code = 3576) Lab Interpretation (test code = 12718-3) [id number] 09:58:00 Test Item Value Reference Range Interpretation Comments eGFR (test code = eGFR) 98 [facility]2017-11-08 09:58:00 Test Item Value Reference Range Interpretation Comments Potassium Lvl (test code = Potassium 4.1 3.5-5.1 Lvl) [facility]2017-11-08 09:58:00 Test Item Value Reference Range Interpretation Comments Chloride Lvl (test code = Chloride Lvl) 106 95-109 [facility]2017-11-08 09:58:00 Test Item Value Reference Range Interpretation Comments CO2 (test code = CO2) 25 24-32 [facility]2017-11-08 09:58:00 Test Item Value Reference Range Interpretation Comments Calcium Lvl (test code = Calcium Lvl) 9.0 8.5-10.5 [facility]2017-11-08 09:58:00 Test Item Value Reference Range Interpretation Comments Sodium Lvl (test code = Sodium Lvl) 139 135-145 [facility]2017-11-08 09:58:00 Test Item Value Reference Range Interpretation Comments Creatinine Lvl (test code = Creatinine 0.72 0.50-1.40 Lvl) [facility]2017-11-08 09:58:00 Test Item Value Reference Range Interpretation Comments BUN (test code = BUN) 13 7-22 [facility]2017-11-08 09:58:00 Test Item Value Reference Range Interpretation Comments Glucose Lvl (test code = Glucose Lvl) 112 70-99 [place] 711837-11-08 09:58:00 Test Item Value Reference Range Interpretation Comments AGAP (test code = AGAP) 12.1 10.0-20.0 [facility]KM8312-47-01 09:58:00 Test Item Value Reference Range Interpretation Comments MCH (test code = MCH) 30.1 pg 27.0-31.0 [facility] ArlingtonKhwqsjmWIZOVASKHP5718-69-30 09:58:00 Test Item Value Reference Range Interpretation Comments MCHC (test code = MCHC) 33.3 32.0-36.0 [facility] ArlingtonBxonjnxUCTJFXJSXU6094-75-49 09:58:00 Test Item Value Reference Range Interpretation Comments RDW (test code = RDW) 13.7 11.5-14.5 [facility] ArlingtonLrsmhsqBAMYWTTMEW7646-80-31 09:58:00 Test Item Value Reference Range Interpretation Comments MCV (test code = MCV) 90.4 80.0-98.0 [facility] ArlingtonEhmwjqaEWRVAKLQEJ9596-88-55 09:58:00 Test Item Value Reference Range Interpretation Comments MPV (test code = MPV) 9.7 7.4-10.4 [facility] ArlingtonHywqatiCJTYKERYCL6581-47-44 09:58:00 Test Item Value Reference Range Interpretation Comments Platelet (test code = Platelet) 251 133-450 [facility] ArlingtonGwhfwthZWSOQUKWNN2183-28-15 09:58:00 Test Item Value Reference Range Interpretation Comments RBC (test code = RBC) 3.95 4.20-5.40 [facility] ArlingtonOucpjeuCTFZKPGLYN9981-62-50 09:58:00 Test Item Value Reference Range Interpretation Comments Hgb (test code = Hgb) 11.9 12.0-16.0 [facility] ArlingtonTmygqhxIHLFLUWLIQ5787-14-04 09:58:00 Test Item Value Reference Range Interpretation Comments Hct (test code = Hct) 35.7 36.0-48.0 [facility] ArlingtonKwfveywRQTCDLXFFY1953-33-96 09:58:00 Test Item Value Reference Range Interpretation Comments WBC (test code = WBC) 13.2 3.7-10.4 [facility] ArlingtonDbplfthDLSFTFUPHC5627-77-23 09:58:00 Test Item Value Reference Range Interpretation Comments Segs (test code = Segs) 83.7 45.0-75.0 [facility] ArlingtonSjykijgCUOZHSUTQY0329-26-07 09:58:00 Test Item Value Reference Range Interpretation Comments Eosinophils (test code = 0.1 See_Comment [A utomated message] The Eosinophils) system which ge nerated this result tra nsmitted reference range : <=4.0. The reference r lucy was not used to int erpret this result as normal/abnormal . [facility] ArlingtonDnvdwnwYZIUGNRXOU2128-73-58 09:58:00 Test Item Value Reference Range Interpretation Comments Lymphocytes (test code = Lymphocytes) 10.0 20.0-40.0 [facility] ArlingtonDavcswrOUKCDPWSVV7233-84-61 09:58:00 Test Item Value Reference Range Interpretation Comments Monocytes (test code = Monocytes) 5.9 2.0-12.0 [facility] ArlingtonElaebtrCYPGQHGTLD6046-51-10 09:58:00 Test Item Value Reference Range Interpretation Comments Basophils (test code = 0.3 See_Comment [Aut omated message] The Basophils) system which ge nerated this result tra nsmitted reference range : <=1.0. The reference r lucy was not used to int erpret this result as normal/abnormal . [facility] ArlingtonIyjliiyJBRJEQDWNK5178-71-20 09:58:00 Test Item Value Reference Range Interpretation Comments Segs-Bands # (test code = Segs-Bands #) 11.1 1.5-8.1 [facility] ArlingtonT[id number] 09:58:00 Test Item Value Reference Range Interpretation Comments Monocytes # (test code 0.8 See_Comment [Aut omated message] The = Monocytes #) system which generated this result tra nsmitted reference range : <=0.8. The reference r lucy was not used to int erpret this result as normal/abnormal . [facility] ArlingtonWyfxnkxDHBSTJZFDN5665-63-66 09:58:00 Test Item Value Reference Range Interpretation Comments Lymphocytes # (test code = Lymphocytes 1.3 1.0-5.5 #) [facility]HtsmpjnSWRHEKBAMFRH6959-06-89 14:37:00 Test Item Value Reference Range Interpretation Comments Creatinine Lvl (test code = Creatinine 0.80 0.50-1.40 Lvl) [facility] AlmaXbqnsllMKBXMFCUZXFV5224-37-44 14:37:00 Test Item Value Reference Range Interpretation Comments BUN (test code = BUN) 17 7-22 [facility] AlmaFtixzlqCLJQWZRYEIJZ3177-02-80 14:37:00 Test Item Value Reference Range Interpretation Comments Potassium Lvl (test code = Potassium 3.9 3.5-5.1 Lvl) [facility] AlmaUvbdmezDZNCWOPOLELF3801-81-29 14:37:00 Test Item Value Reference Range Interpretation Comments Sodium Lvl (test code = Sodium Lvl) 136 135-145 [facility] ArlingtonVoukqusIQWIEEMGUK7321-25-10 14:37:00 Test Item Value Reference Range Interpretation Comments MCHC (test code = MCHC) 33.7 32.0-36.0 [facility] ArlingtonTnxmiabNIITJSPBJG6303-48-30 14:37:00 Test Item Value Reference Range Interpretation Comments Platelet (test code = Platelet) 276 133-450 [facility] ArlingtonLiqunooAJIITUPBNC3389-87-83 14:37:00 Test Item Value Reference Range Interpretation Comments RDW (test code = RDW) 13.9 11.5-14.5 [facility] ArlingtonBttkzkdICMDWPFBEU5558-03-92 14:37:00 Test Item Value Reference Range Interpretation Comments MPV (test code = MPV) 9.7 7.4-10.4 [facility] ArlingtonTkaoidvYZLKSPEXWW4617-05-26 14:37:00 Test Item Value Reference Range Interpretation Comments MCV (test code = MCV) 89.8 80.0-98.0 [facility] ArlingtonVfwoxijJWFTVHWXWZ6895-98-23 14:37:00 Test Item Value Reference Range Interpretation Comments MCH (test code = MCH) 30.2 pg 27.0-31.0 [facility] ArlingtonQboaqpdKGXJKMSLQR5163-80-58 14:37:00 Test Item Value Reference Range Interpretation Comments Hct (test code = Hct) 41.9 36.0-48.0 [facility] ArlingtonAgcvpvrEIUNAUVQBJ2704-49-41 14:37:00 Test Item Value Reference Range Interpretation Comments Hgb (test code = Hgb) 14.1 12.0-16.0 [facility] ArlingtonFiucjovYWBNHEXJAY3029-83-69 14:37:00 Test Item Value Reference Range Interpretation Comments RBC (test code = RBC) 4.67 4.20-5.40 [facility] ArlingtonGjmdopiFGFLOUZSVE8186-46-74 14:37:00 Test Item Value Reference Range Interpretation Comments WBC (test code = WBC) 7.0 3.7-10.4 [facility] ArlingtonNckwsjzHQQQKHGFRM3865-47-33 14:37:00 Test Item Value Reference Range Interpretation Comments PTT (test code = PTT) 27.5 s 22.9-35.8 [facility] ArlingtonGupfdvxRHYGJGSRAU1148-99-44 14:37:00 Test Item Value Reference Range Interpretation Comments PT (test code = PT) 12.9 s 12.0-14.7 [facility] ArlingtonMvjutypIPZFGZNCDY8352-20-03 14:37:00 Test Item Value Reference Range Interpretation Comments INR (test code = INR) 0.97 0.85-1.17 [facility] ArlingtonKicffznNMQZYEOZDC6280-36-03 14:37:00 Test Item Value Reference Range Interpretation Comments Monocytes # (test code 0.3 See_Comment [Aut omated message] The = Monocytes #) system which generated this result tra nsmitted reference range : <=0.8. The reference r lucy was not used to int erpret this result as normal/abnormal . [facility] ArlingtonBmvhkeaHFHZJRPEHA8400-55-65 14:37:00 Test Item Value Reference Range Interpretation Comments Eosinophils # (test code 0.1 See_Comment [A utomated message] The = Eosinophils #) system whic h generated this result tra nsmitted reference range : <=0.5. The reference r lucy was not used to int erpret this result as normal/abnormal . [facility] ArlingtonDedbieuKDPOTPKBYR2277-03-14 14:37:00 Test Item Value Reference Range Interpretation Comments Lymphocytes # (test code = Lymphocytes 1.4 1.0-5.5 #) [facility] ArlingtonUbtzrlzKFHFRUUZQD3464-84-98 14:37:00 Test Item Value Reference Range Interpretation Comments Basophils (test code = 0.6 See_Comment [Aut omated message] The Basophils) system which ge nerated this result tra nsmitted reference range : <=1.0. The reference r lucy was not used to int erpret this result as normal/abnormal . [facility] ArlingtonJcxaraaGJGDHLPWWQ1596-83-16 14:37:00 Test Item Value Reference Range Interpretation Comments Segs-Bands # (test code = Segs-Bands #) 5.2 1.5-8.1 [facility] ArlingtonRlagqstHCGCGMHMXB1936-85-77 14:37:00 Test Item Value Reference Range Interpretation Comments Segs (test code = Segs) 74.3 45.0-75.0 [facility] ArlingtonJekfcdxRUCFAFFJKO7805-40-58 14:37:00 Test Item Value Reference Range Interpretation Comments Monocytes (test code = Monocytes) 4.6 2.0-12.0 [facility] ArlingtonEjxiccrFMWHSIKTPM4093-55-29 14:37:00 Test Item Value Reference Range Interpretation Comments Lymphocytes (test code = Lymphocytes) 19.5 20.0-40.0 [facility] ArlingtonCrajqsoEAGQYROAIS3610-18-94 14:37:00 Test Item Value Reference Range Interpretation Comments Eosinophils (test code = 1.0 See_Comment [A utomated message] The Eosinophils) system which ge nerated this result tra nsmitted reference range : <=4.0. The reference r lucy was not used to int erpret this result as normal/abnormal . [facility] ArlingtonFlhxahfTEXHHIXYTY6755-53-90 14:37:00 Test Item Value Reference Range Interpretation Comments TEG Interp (test Thrombelastograph results code = TEG show increased values of MA. Interp) This finding is suggestive of platelet hypercoagulation. CPT:62883 [facility] ArlingtonYvyqilqZKKWCCXJMD0763-83-37 14:37:00 Test Item Value Reference Range Interpretation Comments TEG Data (test code = See Note (10/08/17 8:37 TEG Data) AM) [facility] ArlingtonItlaqciFVCCRHUEIM3348-97-85 14:37:00 Test Item Value Reference Range Interpretation Comments Max Amp (test code = Max Amp) 72.1 mm 50.0-70.0 [facility] ArlingtonPebtdevYXUGNALWUU0351-95-83 14:37:00 Test Item Value Reference Range Interpretation Comments G-value (test code = G-value) 12.9 4.5-11.0 [facility] ArlingtonMapevneKFQCRFLSTK3740-78-65 14:37:00 Test Item Value Reference Range Interpretation Comments Ly30 (test code = 4.0 See_Comment [Automate d message] The Ly30) system which ge nerated this result transmit haven reference range : <=7.5. The reference range was not used to interpr et this result as marbin l/abnormal. [facility]JfapnxeRYOUWFYRPN5513-78-07 14:37:00 Test Item Value Reference Range Interpretation Comments Coag Index (test code 2.0 See_Comment [Auto mated message] The = Coag Index) system which g enerated this result transmit haven reference range : <=3.0. The reference range was not used to interpr et this result as marbin l/abnormal. [facility] HospitalKxyokqmEUMBMILRGM5513-32-75 14:37:00 Test Item Value Reference Range Interpretation Comments R-time (test code = R-time) 5.9 min 5.0-10.0 [facility] HospitalDzpwenpTGKGJMRHKG2308-96-16 14:37:00 Test Item Value Reference Range Interpretation Comments Angle (test code = Angle) 70.3 degrees 53.0-72.0 [facility] HospitalVbtrmglOHEUQBBVLL9671-72-33 14:37:00 Test Item Value Reference Range Interpretation Comments K-time (test code = K-time) 1.4 min 1.0-3.0 [facility] KJSDUJJ9635-79-04 14:37:00 Test Item Value Reference Range Interpretation Comments Antibody Scrn (test Negative (10/08/17 8:37 code = Antibody Scrn) AM) [facility] [employer] ZMYXZPZ8957-63-47 14:37:00 Test Item Value Reference Range Interpretation Comments ABO/Rh (test code = ABO/Rh) O POS [facility] [employer] AXLNX0315-24-16 14:37:00 Test Item Value Reference Range Interpretation Comments Bili Total (test code = Bili Total) 0.4 0.2-1.3 [facility] [employer]2017-11-07 14:37:00 Test Item Value Reference Range Interpretation Comments Bili Direct (test code 0.1 See_Comment [Aut omated message] The = Bili Direct) system which generated this result tra nsmitted reference range : <=0.3. The reference r lucy was not used to int erpret this result as marbin l/abnormal. [facility] [employer]2017-11-07 14:37:00 Test Item Value Reference Range Interpretation Comments ALT (test code = ALT) 28 See_Comment [Auto mated message] The system which ge nerated this result transmit haven reference range : <=65. The reference range was not used to interpr et this result as marbin l/abnormal. [facility]2017-11-07 14:37:00 Test Item Value Reference Range Interpretation Comments AST (test code = AST) 18 See_Comment [Auto mated message] The system which ge nerated this result transmit haven reference range : <=37. The reference range was not used to interpr et this result as marbin l/abnormal. [facility]2017-11-07 14:37:00 Test Item Value Reference Range Interpretation Comments Alk Phos (test code = Alk Phos) 68 39-136 [place] 711837-11-07 14:37:00 Test Item Value Reference Range Interpretation Comments Total Protein (test code = Total 8.7 6.4-8.4 Protein) [facility]2017-11-07 14:37:00 Test Item Value Reference Range Interpretation Comments Albumin Lvl (test code = Albumin Lvl) 4.1 3.5-5.0 [facility]2017-11-07 14:37:00 Test Item Value Reference Range Interpretation Comments A/G Ratio (test code = A/G Ratio) 0.9 0.7-1.6 [facility]2017-11-07 14:37:00 Test Item Value Reference Range Interpretation Comments Globulin (test code = Globulin) 4.6 2.7-4.2 [facility]2017-11-07 14:37:00 Test Item Value Reference Range Interpretation Comments Bili Indirect (test 0.3 See_Comment [Automa haven message] The code = Bili Indirect) system which generated this result tra nsmitted reference range : <=1.0. The reference r lucy was not used to int erpret this result as normal/abnormal . [facility] AlmaMgrskxxFGYTYASCTJSF0692-08-21 14:37:00 Test Item Value Reference Range Interpretation Comments AGAP (test code = AGAP) 12.9 10.0-20.0 [facility] AlmaEiylptwIOXJXFKHHYML6482-65-87 14:37:00 Test Item Value Reference Range Interpretation Comments eGFR (test code = eGFR) 86 [facility] AlmaAeymjofTWGUPYPGJIPV2268-57-39 14:37:00 Test Item Value Reference Range Interpretation Comments Chloride Lvl (test code = Chloride Lvl) 105 95-109 [facility]ftcNFBWKSVPFIKW6604-34-42 14:37:00 Test Item Value Reference Range Interpretation Comments CO2 (test code = CO2) 22 24-32 [facility] AlmaCzoyljpWBAFBRGMTIRD9928-69-78 14:37:00 Test Item Value Reference Range Interpretation Comments Calcium Lvl (test code = Calcium Lvl) 9.7 8.5-10.5 [facility] AlmaVziggebZSSXHDRWUOFC4550-72-74 14:37:00 Test Item Value Reference Range Interpretation Comments Glucose Lvl (test code = Glucose Lvl) 128 70-99 [facility]
[2022-02-25 15:32] LABS: Urine Blood 3+ (Negative); Urine Glucose Negative (Negative); Urine Protein 2+ (Negative); Urine Specific Gravity <=1.005 (1.005-1.030)
[2022-02-25] MEDS ORDERED: NA CHLORIDE 0.9% 1,000 ML ONE (16:16)
[2022-02-25] MEDS ORDERED: FENTANYL CITR 100 MCG/2 ML ONE ×2 (16:16→17:57)
[2022-02-25 16:20] LABS: Absolute Lymphocytes (CBC) 1.5 K/uL (0.7-4.9); Hematocrit 41.5 % (36.0-45.0); Lymphocytes % 10.2 % (15.3-44.8); MPV 9.2 fL (7.6-11.3); RBC Red Blood Cell Count 4.57 M/uL (3.86-4.86)
[2022-02-25 16:35] LABS: Protime INR 0.93
[2022-02-25 16:43] LABS: Albumin 4.1 g/dL (3.4-5.0); Bilirubin Total 0.4 mg/dL (0.2-1.0); Potassium 3.8 mmol/L (3.5-5.1); Protein, Total 8.3 g/dL (6.4-8.2)
--- NOTE | 2022-02-25 17:14 | RAD REPORT ---
EXAM DESCRIPTION: CT - Stone Protocol - 02/25/2022 4:47 pm CLINICAL HISTORY: Abdominal pain. Right flank pain COMPARISON: 2017 TECHNIQUE: Computed axial tomography of the abdomen pelvis was obtained without oral or IV contrast. Lack of IV and oral contrast limits evaluation of solid organs, bowel, and vessels. Coronal reformat haven images were obtained and reviewed. All CT scans are performed using dose optimization technique as appropriate and may include automated exposure control or mA/KV adjustment according to patient size. FINDINGS: Small left renal calculi. No hydronephrosis. A right renal calculus is not seen. A ureteral calculus is not noted. A bladder calculus. Small hepatic cysts. Fatty liver Cholecystectomy Spleen, pancreas and adrenals appear grossly normal There is no evidence of diverticulitis. The appendix appears normal Small to moderate umbilical hernia contains fat. Small ventral hernia within the mid to upper abdomen contains fat 3.6 x 1.7 centimeter complex cystic structure right adnexa decreased in size from 2018 IMPRESSION: Nonobstructing left renal calculi
[2022-02-25 17:51] LABS: Urine Bacteria >50 /HPF (<20); Urine RBC 20-50 /HPF (NONE SEEN)
[2022-02-25] MEDS ORDERED: NA CHLORIDE 0.9% 50 ML ONE (17:52)
[2022-02-25] MEDS ORDERED: CEFTRIAXONE 1000 MG/VIAL ONE (17:52)
--- NOTE | 2022-02-25 17:57 | ER ---
Nurse's Notes [facility] Name: Miryam Leon Age: 56 yrs Sex: Female : 1965 Arrival Date: 02/25/2022 Time: 15:10 Bed 19 Private MD: Diagnosis: UTI/ Urinary tract infection, site not specified;Other ovarian cysts;Abnormal uterine and vaginal bleeding, unspecified Presentation: 02/25 15:13 Chief complaint: Patient states: "this morning I noticed blood in my urine and I hurt." ab2 Pt c/o suprapubic pain. Coronavirus screen: Vaccine status: Patient reports receiving the 2nd dose of the covid vaccine. Client denies travel out of the [place] in the last 14 days. At this time, the client does not indicate any symptoms associated with coronavirus-19. Ebola Screen: Patient negative for fever greater than or equal to 101.5 degrees Fahrenheit, and additional compatible Ebola Virus Disease symptoms Patient denies exposure to infectious person. Patient denies travel to an Ebola-affected area in the 21 days before illness onset. No symptoms or risks identified at this time. Initial Sepsis Screen: Does the patient meet any 2 criteria? No. Patient's initial sepsis screen is negative. Does the patient have a suspected source of infection? No. Patient's initial sepsis screen is negative. Risk Assessment: Do you want to hurt yourself or someone else? Patient reports no desire to harm self or others. Onset of symptoms is unknown. 15:13 Method Of Arrival: Ambulatory ab2 15:13 Acuity: ALLIE 3 ab2 Triage Assessment: 15:15 General: Appears in no apparent distress. uncomfortable, Behavior is calm, cooperative, ab2 appropriate for age. Pain: Complains of pain in suprapubic area. GI: Reports upper abdominal pain. : Reports burning with urination, Blood in urine. Historical: - Home Meds: 15:14 None [Active]; ab2 - PMHx: 15:14 Hypertension; ab2 - PSHx: 15:14 Cholecystectomy; ab2 - Immunization history:: Adult Immunizations up to date. - Social history:: Smoking status: Patient denies any tobacco usage or history of. Screenin:00 Abuse screen: Denies threats or abuse. Nutritional screening: No deficits noted. jd3 Tuberculosis screening: No symptoms or risk factors identified. Fall Risk Ambulatory Aid- None/Bed Rest/Nurse Assist (0 pts). Gait- Normal/Bed Rest/Wheelchair (0 pts) Mental Status- Oriented to own ability (0 pts). Total Reis Fall Scale indicates No Risk (0-24 pts). Assessment: 16:20 General: Appears in no apparent distress. uncomfortable, Behavior is calm, cooperative, jd3 appropriate for age. Pain: Complains of pain in abdomen Quality of pain is described as aching, sharp, shooting. Neuro: Level of Consciousness is awake, alert, obeys commands, Oriented to person, place, time, situation. Cardiovascular: Denies chest pain, Capillary refill < 3 seconds Patient's skin is warm and dry. Respiratory: Airway is patent Respiratory effort is even, unlabored, Respiratory pattern is regular, symmetrical, Denies cough, shortness of breath. GI: Abdomen is round non-distended, Abd is soft X 4 quads Abdomen is tender to palpation X 4 quads. Reports lower abdominal pain, Patient currently denies nausea, vomiting. : Reports burning with urination, vaginal bleeding that is blood in urine. EENT: No signs and/or symptoms were reported regarding the EENT system. Derm: Skin is intact, Skin is dry, Skin is normal, Skin temperature is warm. Musculoskeletal: Circulation, motion, and sensation intact. Range of motion: intact in all extremities. 17:58 Reassessment: Patient appears in no apparent distress at this time. No changes from jd3 previously documented assessment. Patient and/or family updated on plan of care and expected duration. Pain level reassessed. Patient is alert, oriented x 3, equal unlabored respirations, skin warm/dry/pink. awaiting IV antibiotics infusion prior to discharge. General: Appears in no apparent distress. comfortable, Behavior is calm, cooperative, appropriate for age. 18:52 Reassessment: Patient appears in no apparent distress at this time. Patient and/or jd3 family updated on plan of care and expected duration. Pain level reassessed. Patient is alert, oriented x 3, equal unlabored respirations, skin warm/dry/pink. Patient states feeling better. Patient states symptoms have improved. Vital Signs: 15:13 BP 142 / 99; Pulse 81; Resp 18; Temp 98.2(TE); Pulse Ox 99% on R/A; Weight 91.17 kg; ab2 Height 5 ft. (152.40 cm); Pain 10/10; 16:38 BP 130 / 94; Pulse 88; Resp 18 S; Pulse Ox 99% on R/A; jd3 17:58 Pulse 87; Resp 17 S; Pulse Ox 99% on R/A; jd3 18:52 BP 139 / 63; Pulse 85; Resp 16 S; Pulse Ox 99% on R/A; jd3 15:13 Body Mass Index 39.25 (91.17 kg, 152.40 cm) ab2 ED Course: 15:10 Patient arrived in ED. mr 15:14 Triage completed. ab2 15:15 Arm band placed on right wrist. ab2 15:17 Colton Dorman PA is PHCP. cp 15:17 Colton Aguilera MD is Attending Physician. cp 16:00 Tonio Luis RN is Primary Nurse. jd3 16:01 Patient has correct armband on for positive identification. Bed in low position. Call jd3 light in reach. Side rails up X 1. Pulse ox on. NIBP on. 16:10 Inserted saline lock: 22 gauge in left antecubital area, using aseptic technique. Blood jd3 collected. 16:49 CT Stone Protocol In Process Unspecified. EDMS 18:52 No provider procedures requiring assistance completed. IV discontinued, intact, jd3 bleeding controlled, No redness/swelling at site. Pressure dressing applied. Administered Medications: 15:54 CANCELLED (Physician Discretion): TORadol (ketorolac) 30 mg IVP once cp 16:19 Drug: NS 0.9% 1000 ml Route: IV; Rate: 1 bolus; Site: left antecubital; jd3 17:46 Follow up: Response: No adverse reaction; IV Status: Completed infusion; IV Intake: jd3 1000ml 16:19 Drug: fentaNYL (PF) 25 mcg Route: IVP; Site: right antecubital; jd3 17:19 Follow up: Response: No adverse reaction; RASS: Alert and Calm (0) jd3 17:56 Drug: fentaNYL (PF) 25 mcg Route: IVP; Site: left antecubital; jd3 18:19 Follow up: Response: No adverse reaction; RASS: Alert and Calm (0) jd3 17:57 Drug: Rocephin - (cefTRIAXone) 1 grams Route: IVPB; Infused Over: 30 mins; Site: left jd3 antecubital; 18:54 Follow up: Response: No adverse reaction; IV Status: Completed infusion jd3 Intake: 17:46 IV: 1000ml; Total: 1000ml. jd3 Outcome: 17:56 Discharge ordered by . cp 18:52 Discharged to home ambulatory, with family. jd3 18:52 Condition: stable 18:52 Discharge instructions given to patient, Instructed on discharge instructions, follow up and referral plans. medication usage, Demonstrated understanding of instructions, follow-up care, medications, Prescriptions given X 3. 18:55 Patient left the ED. jd3 Addendum: 03/01/2022 08:45 Addendum: Culture Results: Positive urine culture. Bacteria is resistant to, has i w intermediate sensitivity, or is not tested against prescribed antibiotics. Report given to TIMUR for further evaluation and then to volunteer patient representative for follow up with patient. Signatures: Dispatcher [employer] EDMS Marnie Decker mr Mony Johnson RN RN iw Page, Corey, PA PA cp Davies, Jonathon, RN RN jd3 Bleininger, Alexis ab2 Corrections: (The following items were deleted from the chart) 02/25 18:00 17:58 Reassessment: Patient appears in no apparent distress at this time. No changes jd3 from previously documented assessment. Patient and/or family updated on plan of care and expected duration. Pain level reassessed. Patient is alert, oriented x 3, equal unlabored respirations, skin warm/dry/pink. jd3
--- NOTE | 2022-02-25 17:57 | EDPHYS ---
Physician Documentation [facility] Name: Miryam Leon Age: 56 yrs Sex: Female : 1965 Arrival Date: 02/25/2022 Time: 15:10 Bed 19 Private MD: YANNICK Physician Colton Aguilera HPI: 02/25 15:40 This 56 yrs old Female presents to ER via Ambulatory with complaints of cp Abdominal Pain. 15:40 The patient presents with abdominal pain in the lower abdomen. cp 15:40 Onset: The symptoms/episode began/occurred this morning. cp 15:40 The symptoms do not radiate. Associated signs and symptoms: Pertinent positives: cp dysuria, hematuria, nausea, vaginal bleeding, Pertinent negatives: fever, vomiting. The symptoms are described as constant. Severity of pain: in the emergency department the pain is unchanged despite home interventions. 15:45 Patient reports having cervical biopsy performed 3 days ago for history of abnormal cp PAP. Patient reports pain with urination and urinary frequency. Patient reports vaginal bleeding and noticing blood in urine. Historical: - Home Meds: 15:14 None [Active]; ab2 - PMHx: 15:14 Hypertension; ab2 - PSHx: 15:14 Cholecystectomy; ab2 - Immunization history:: Adult Immunizations up to date. - Social history:: Smoking status: Patient denies any tobacco usage or history of. ROS: 15:45 Constitutional: Negative for body aches, chills, fever, poor PO intake. cp 15:45 Eyes: Negative for injury, pain, redness, and discharge. cp 15:45 ENT: Negative for drainage from ear(s), ear pain, sore throat, difficulty swallowing, difficulty handling secretions. 15:45 Cardiovascular: Negative for chest pain, palpitations. 15:45 Respiratory: Negative for cough, shortness of breath, wheezing. 15:45 Abdomen/GI: Positive for abdominal pain, nausea, Negative for vomiting, diarrhea, constipation. 15:45 Back: Negative for injury or acute deformity. 15:45 : Positive for urinary symptoms, vaginal bleeding. 15:45 Neuro: Negative for altered mental status, dizziness, headache, weakness. 15:45 All other systems are negative. Exam: 15:50 Constitutional: The patient appears in no acute distress, alert, awake, non-toxic, well cp developed, well nourished, obese. 15:50 Head/Face: Normocephalic, atraumatic. cp 15:50 Eyes: Periorbital structures: appear normal, Conjunctiva: normal, no exudate, no injection, Sclera: no appreciated abnormality, Lids and lashes: appear normal, bilaterally. 15:50 ENT: External ear(s): are unremarkable, Nose: is normal, Mouth: Lips: moist, Oral mucosa: moist, Posterior pharynx: Airway: no evidence of obstruction, patent. 15:50 Neck: ROM/movement: is normal, is supple, without pain, no range of motions limitations. 15:50 Chest/axilla: Inspection: normal. 15:50 Cardiovascular: Rate: normal, Rhythm: regular. 15:50 Respiratory: the patient does not display signs of respiratory distress, Respirations: normal, no use of accessory muscles, no retractions, labored breathing, is not present, Breath sounds: are clear throughout, no decreased breath sounds, no stridor, no wheezing. 15:50 Abdomen/GI: Inspection: abdomen appears normal, Bowel sounds: active, all quadrants, Palpation: soft, in all quadrants, moderate abdominal tenderness, in the suprapubic area and right lower quadrant, rebound tenderness, is not appreciated, involuntary guarding, is not appreciated. 15:50 Back: CVA tenderness, is noted on the right. 15:50 Neuro: Orientation: to person, place \T\ time. Mentation: is normal, Motor: moves all fours, strength is normal, Sensation: is normal, Gait: is steady. 16:27 : Pelvic Exam: External exam: is normal, Speculum exam: scant bleeding, no cp cervicitis, os that is closed, no tissue in cervix is seen, no tissue in vagina is seen, the sound technician was present for the exam. Vital Signs: 15:13 BP 142 / 99; Pulse 81; Resp 18; Temp 98.2(TE); Pulse Ox 99% on R/A; Weight 91.17 kg; ab2 Height 5 ft. (152.40 cm); Pain 10/10; 16:38 BP 130 / 94; Pulse 88; Resp 18 S; Pulse Ox 99% on R/A; jd3 17:58 Pulse 87; Resp 17 S; Pulse Ox 99% on R/A; jd3 18:52 BP 139 / 63; Pulse 85; Resp 16 S; Pulse Ox 99% on R/A; jd3 15:13 Body Mass Index 39.25 (91.17 kg, 152.40 cm) ab2 MDM: 15:18 Patient medically screened. cp 16:00 Differential diagnosis: appendicitis, cholecystitis, Cholelithiasis, non-specific abd cp pain, pancreatitis, Pyelonephritis, Ureterolithiasis, urinary tract infection. 17:56 Data reviewed: vital signs, nurses notes, lab test result(s), radiologic studies, CT cp scan. 17:56 Counseling: I had a detailed discussion with the patient and/or guardian regarding: the cp historical points, exam findings, and any diagnostic results supporting the discharge/admit diagnosis, lab results, radiology results, the need for outpatient follow up, a family practitioner, an OB/Gyne specialist, to return to the emergency department if symptoms worsen or persist or if there are any questions or concerns that arise at home. Response to treatment: the patient's symptoms have markedly improved after treatment. Special discussion: Based on the patient's Hx, exam, and Dx evaluation, there is no indication for emergent surgery or inpatient Tx. It is understood by the patient/guardian that if the Sx's persist or worsen they need to return immediately for re-evaluation. ED course: VSS. Pain markedly improved. Patient appears non-toxic. Will discharge to home for continued monitoring. 02/25 15:32 Order name: Urine Dipstick-Ancillary; Complete Time: 15:34 EDMS 02/25 17:08 Interpretation: Normal except: UBLD 3+; UPROT 2+; UESTR 1+. cp 02/25 15:34 Order name: Urine Microscopic Only; Complete Time: 17:53 cp 02/25 17:53 Interpretation: Normal except: UWBC 20-50; URBC 20-50; UBACT >50. 02/25 15:54 Order name: CBC with Diff; Complete Time: 16:29 cp 02/25 16:29 Interpretation: Normal except: WBC 14.8; GALI% 82.8; LYM% 10.2; NEUT A 12.3. 02/25 15:54 Order name: CMP; Complete Time: 17:08 cp 02/25 17:09 Interpretation: Normal except: GLUC 127; GFR 70; A/G 1.0; GLOB 4.2; TP 8.3. cp 02/25 15:54 Order name: Lipase; Complete Time: 17:08 cp 02/25 15:54 Order name: PT-INR; Complete Time: 17:08 cp 02/25 15:54 Order name: Ptt, Activated; Complete Time: 17:08 cp 02/25 16:30 Order name: CT Stone Protocol; Complete Time: 17:34 cp 02/25 17:54 Order name: Urine Culture EDMS 02/25 15:54 Order name: IV Saline Lock; Complete Time: 16:10 cp 02/25 15:54 Order name: Labs collected and sent; Complete Time: 16:10 cp 02/25 15:57 Order name: Pelvic Exam Setup; Complete Time: 16:36 cp Administered Medications: 15:54 CANCELLED (Physician Discretion): TORadol (ketorolac) 30 mg IVP once cp 16:19 Drug: NS 0.9% 1000 ml Route: IV; Rate: 1 bolus; Site: left antecubital; jd3 17:46 Follow up: Response: No adverse reaction; IV Status: Completed infusion; IV Intake: jd3 1000ml 16:19 Drug: fentaNYL (PF) 25 mcg Route: IVP; Site: right antecubital; jd3 17:19 Follow up: Response: No adverse reaction; RASS: Alert and Calm (0) jd3 17:56 Drug: fentaNYL (PF) 25 mcg Route: IVP; Site: left antecubital; jd3 18:19 Follow up: Response: No adverse reaction; RASS: Alert and Calm (0) jd3 17:57 Drug: Rocephin - (cefTRIAXone) 1 grams Route: IVPB; Infused Over: 30 mins; Site: left j antecubital; 18:54 Follow up: Response: No adverse reaction; IV Status: Completed infusion jd3 Disposition Summary: 02/25/22 17:56 Discharge Ordered Location: Home cp Problem: new cp Symptoms: have improved cp Condition: Stable cp Diagnosis - UTI/ Urinary tract infection, site not specified cp - Other ovarian cysts cp - Abnormal uterine and vaginal bleeding, unspecified cp Followup: cp - With: Private Physician - When: 1 week - Reason: Recheck today's complaints Discharge Instructions: - Discharge Summary Sheet cp - Abnormal Uterine Bleeding cp - Ovarian Cyst cp - Urinary Tract Infection, Adult cp Forms: - Medication Reconciliation Form cp - Thank You Letter cp - Antibiotic Education cp - Prescription Opioid Use cp Prescriptions: - Ibuprofen 800 mg Oral Tablet - take 1 tablet by ORAL route every 8 hours As needed take with food; 30 tablet; cp Refills: 0, Product Selection Permitted - Bactrim DS 800-160 mg Oral Tablet - take 1 tablet by ORAL route every 12 hours for 7 days; 14 tablet; Refills: 0, cp Product Selection Permitted - Tylenol-Codeine #3 300 mg-30 mg Oral - take 2 tablet by ORAL route every 8-10 hours As needed; 15 tablet; Refills: 0, cp Product Selection Permitted Addendum: 02/28/2022 07:16 Co-signature as Attending Physician, Colton Aguilera MD I agree with the assessment and c corbett plan of care. Signatures: Dispatcher [employer] EDColton Lee MD MD cha Page, Corey, PA PA Tonio Melara, RN RN jd3 Jose Gee2 Corrections: (The following items were deleted from the chart) 02/25 15:54 15:54 TORadol (ketorolac) 30 mg IVP once ordered. cp cp 17:09 17:08 Normal except: GLUC 127; GFR 70. cp cp
[2022-02-25 19:08] VITALS: TEMP 98.2; O2SAT 99
[2022-02-25 19:12] VITALS: BP 139/63
== END 2022-02-25 18:55 | disposition home or self-care (01) ==
LOC: ER 15:06
DX: N39.0 Urinary tract infection, site not specified (principal); N83.299 Other ovarian cyst, unspecified side; N93.9 Abnormal uterine and vaginal bleeding, unspecified; I10 Essential (primary) hypertension
CPT/HCPCS: 87088; 85025; 87086; 36415; 85610; 85730; 87077; 87186; 83690; 80053; 76377; 74176; 99284; J3010 ×2; J7030; 81003; 81015

== ENCOUNTER → 2023-12-07 | Emergency (ER) | payer BC, OTHER ==
[~2023-12-07] MED LIST: CEFTRIAXONE 1000 MG/VIAL ONE; KETOROLAC 30 MG/ML INJ ONE; NA CHLORIDE 0.9% 1,000 ML ONE; NA CHLORIDE 0.9% 50 ML ONE; ONDANSETRON 4 MG/2 ML VIAL ONE
--- NOTE | 2023-12-07 14:06 | RAD REPORT ---
EXAM DESCRIPTION: CT - Abdomen Pelvis Wo Contrast - 12/07/2023 1:57 pm CLINICAL HISTORY: Abdominal pain. ABD PAIN COMPARISON: Stone Protocol dated 02/25/2022 TECHNIQUE: CT imaging of the abdomen and pelvis was performed without contrast. Solid organ, bowel a nd vascular assessment is limited due to lack of IV and oral contrast. All CT scans are performed using dose optimization technique as appropriate and may include automated exposure control or mA/KV adjustment according to patient size. FINDINGS: The lower lung novak are clear. The liver demonstrates several low-density lesions in the left lobe anteriorly likely benign cysts. C holecystectomy clips. Spleen, pancreas, adrenal glands and right kidney are within normal limits for a limited non-contrast examination.10 mm stone is seen distal left ureter at the left UVJ resulting i n no significant hydronephrosis. Small fat containing umbilical hernia. No bowel obstruction, free air, free fluid or abscess. The appendix is normal. The osseous structures are within normal limits. IMPRESSION: 10 mm stone is seen distal left ureter at the level of the left UVJ. No significant hydr onephrosis. A limited non-contrast examination was performed as detailed.
[2023-12-07 14:22] LABS: Absolute Lymphocytes (CBC) 1.6 K/uL (0.7-4.9); Hematocrit 40.4 % (36.0-45.0); Lymphocytes % 22.4 % (15.3-44.8); MCV 91.7 fL (80-100); MPV 9.6 fL (7.6-11.3); Platelets 291 thou/uL (152-406); RBC Red Blood Cell Count 4.41 M/uL (3.86-4.86)
[2023-12-07 14:32] LABS: Bilirubin Total 0.4 mg/dL (0.2-1.0); Potassium 3.7 mEq/L (3.5-5.1); Protein, Total 8.4 g/dL (6.4-8.2)
[2023-12-07 14:45] LABS: Specific Gravity 1.006 (1.005-1.030); Urine Bacteria <20 /HPF (<20); Urine Bilirubin NEGATIVE (Negative); Urine Blood 1+ (Negative); Urine Clarity Turbid (Clear); Urine Color Colorless (Yellow); Urine Glucose NEGATIVE (Negative); Urine Protein NEGATIVE (Negative); Urine RBC <5 /HPF (None Seen); Urine Urobilinogen Normal (Normal); Urine pH 7.5 (5.0-7.0)
--- NOTE | 2023-12-07 15:09 | EDPHYS ---
Physician Documentation [facility] Name: Miryam Leon Age: 58 yrs Sex: Female : 1965 Arrival Date: 12/07/2023 Time: 13:17 Bed 18 Private MD: ED Physician Lauri Hahn HPI: 12/07 13:37 This 58 yrs old Female presents to ER via Ambulatory with complaints of ec2 Urinary Problem. 13:37 Patient arrives today due to concern for lower abdominal pain along with dysuria. ec2 Patient reports that she has been experiencing symptoms for several months and has been progressively stable and may be getting worse. Patient reports she was seen last week, was diagnosed with a stone and started on Flomax and ibuprofen. Reports improvement in symptoms with ibuprofen. Patient reports some nausea and vomiting, no diarrheal symptoms. Reports no fevers or chills.. Historical: - Allergies: 13:34 No Known Allergies; hb - PMHx: 13:34 Hypertension; hb - PSHx: 13:34 Cholecystectomy; hb - Immunization history:: Client reports receiving the 2nd dose of the Covid vaccine. - Social history:: Smoking status: Patient denies any tobacco usage or history of. ROS: 13:37 Constitutional: as per hpi ec2 Exam: 13:37 Constitutional: GEN: NAD Head: atraumatic Eyes: EOMI Ears: External ears are ec2 normal. CV: regular rate LUNGS: no respiratory distress ABD: non-distended SKIN: no evidence of rashes MSK: no evidence of trauma NEURO: moves all extremities equally Vital Signs: 13:33 BP 138 / 88; Pulse 89; Resp 16; Temp 97.8(TE); Pulse Ox 97% on R/A; Weight 91.63 kg; hb Height 5 ft. 0 in. ; Pain 0/10; 14:03 BP 126 / 76; Pulse 74; Resp 18; Pulse Ox 96% on R/A; db 15:00 BP 139 / 85; Pulse 85; Resp 18; Pulse Ox 96% on R/A; db 16:00 BP 128 / 79; Pulse 79; Resp 18; Pulse Ox 96% on R/A; db 16:30 BP 133 / 72; Pulse 82; Resp 18; Pulse Ox 96% on R/A; db 17:30 BP 143 / 77; Pulse 87; Resp 16; Pulse Ox 95% on R/A; db 18:00 BP 135 / 84; Pulse 81; Resp 18; Pulse Ox 97% on R/A; db 18:30 BP 135 / 88; Pulse 79; Resp 18; Pulse Ox 97% on R/A; db 13:33 Body Mass Index 39.45 (91.63 kg, 152.4 cm) hb 13:33 Pain Scale: Adult hb MDM: 13:30 Patient medically screened. ec2 13:37 Data reviewed: vital signs. ED course: Patient arrives today for persistent abdominal ec2 pain as well as dysuria. Examination remarkable for well-appearing nontoxic dividual is otherwise in no acute distress with reassuring vital signs. Will obtain lab work, CT imaging and treat the patient's symptoms with Toradol, crystalloid and Zofran. Currently considering persistent ureteral stone, UTI, pyelonephritis, lower suspicion for diverticulitis.. 14:17 ED course: CT imaging shows a left distal ureteral stone. No hydronephrosis noted. ec2 Pending urine and lab work. . 15:09 ED course: Will transfer for urology services.. ec2 15:24 ED course: Discussed case with the urologist who agrees to consult on patient, pending ec2 hospitalist discussion and transfer to [facility].. 15:52 ED course: I discussed case with hospitalist who agrees to except patient for ec2 admission. Will transfer [facility] to [facility]. Pending bed placement.. 12/07 13:37 Order name: CBC with Diff; Complete Time: 14:39 ec2 12/07 13:37 Order name: CMP; Complete Time: 14:39 ec2 12/07 13:37 Order name: Lipase; Complete Time: 14:39 ec2 12/07 14:17 Order name: UAM; Complete Time: 14:58 ec2 12/07 13:37 Order name: CT Abd/Pelvis - Without Contrast; Complete Time: 14:16 ec2 12/07 13:37 Order name: IV Saline Lock; Complete Time: 13:52 ec2 12/07 13:37 Order name: Labs collected and sent; Complete Time: 13:52 ec2 Administered Medications: 14:02 Drug: NS 0.9% IV 1000 ml IV at 1 bolus Per protocol; 1000 mL bolus Route: IV; Rate: 1 db bolus; Site: right antecubital; 14:05 Drug: TORadol - Ketorolac IVP 15 mg IVP once Route: IVP; Site: right antecubital; db 14:05 Drug: Ondansetron IVP 4 mg IVP once; over 2 minutes Route: IVP; Site: right antecubital;db 16:42 Drug: Rocephin IV 1 grams IV at calculated rate once; Given slow IV push per pharmacy db instructions Route: IV; Rate: calculated rate; Site: right antecubital; Disposition Summary: 12/07/23 15:09 Transfer Ordered Notes: Reason: Higher level of care ec2 Condition: Stable ec2 Problem: new ec2 Symptoms: have improved ec2 Transfer Location: [facility](12/07/23 15:25) ec2 Accepting Physician: Dr. Tony Lowe [facility](12/07/23 19:22) tm6 Diagnosis - Calculus of ureter ec2 Forms: - Medication Reconciliation Form ec2 - SBAR form ec2 Signatures: Dispatcher [employer] EDSocorro Kennedy RN RN Gisele Toney Danielle, RN RN Lauri Hahn MD MD ec2 Quang Owens RN RN tm6 Corrections: (The following items were deleted from the chart) 14:06 14:06 Patient medically screened. ec2 ec2 15:25 15:09 transferring doc ec2 ec2 15:25 15:09 Other Acute Care Facility ec2 ec2 15:59 15:25 transferring doc ec2 eb 19:22 15:[address] [facility] eb tm6
--- NOTE | 2023-12-07 15:09 | ER ---
Nurse's Notes [facility] Name: Miryam Leon Age: 58 yrs Sex: Female : 1965 Arrival Date: 12/07/2023 Time: 13:17 Bed 18 Private MD: Diagnosis: Calculus of ureter Presentation: 12/07 13:33 Chief complaint: Chief complaint: Dysuria x 5 months, dx with ureteral stone on 12/02, on hb Flomax a, Zofran, and Motrin, c/o nausea, decreased PO intake and persistent dysuria. Coronavirus screen: At this time, the client does not indicate any symptoms associated with coronavirus-19. Ebola Screen: No symptoms or risks identified at this time. Initial Sepsis Screen: Does the patient meet any 2 criteria? HR > 90 bpm. No. Patient's initial sepsis screen is negative. Does the patient have a suspected source of infection? No. Patient's initial sepsis screen is negative. Risk Assessment: Do you want to hurt yourself or someone else? Patient reports no desire to harm self or others. Onset of symptoms was August 07, 2023. 13:33 Method Of Arrival: Ambulatory hb 13:33 Acuity: ALLIE 3 hb Historical: - Allergies: 13:34 No Known Allergies; hb - PMHx: 13:34 Hypertension; hb - PSHx: 13:34 Cholecystectomy; hb - Immunization history:: Client reports receiving the 2nd dose of the Covid vaccine. - Social history:: Smoking status: Patient denies any tobacco usage or history of. Screenin:[facility] ED Fall Risk Assessment (Adult) History of falling in the last 3 months, db including since admission No falls in past 3 months (0 pts) Score/Fall Risk Level 0 - 2 = Low Risk Oriented to surroundings, Maintained a safe environment. Abuse screen: Denies threats or abuse. Denies injuries from another. Nutritional screening: No deficits noted. Tuberculosis screening: No symptoms or risk factors identified. Assessment: 13:54 Reassessment: Patient appears in no apparent distress at this time. Patient and/or db family updated on plan of care and expected duration. Pain level reassessed. Patient is alert, oriented x 3, equal unlabored respirations, skin warm/dry/pink. Patient states feeling better. Patient states symptoms have improved. General: Appears in no apparent distress. comfortable, Behavior is calm, cooperative. Pain: Complains of pain in abdomen. Neuro: Level of Consciousness is awake, alert, obeys commands, Oriented to person, place, time, situation. Respiratory: Airway is patent Respiratory effort is even, unlabored, Respiratory pattern is regular, symmetrical. 13:54 Reassessment: PATIENT TO CT. db 14:25 Reassessment: Patient appears in no apparent distress at this time. Patient and/or db family updated on plan of care and expected duration. Pain level reassessed. Patient is alert, oriented x 3, equal unlabored respirations, skin warm/dry/pink. PATIENT NOT GIVEN MORPHINE. STATES PAIN IS 0/10. DENIES PAIN MEDICATION NOW. NOTIFIED DR. HAHN. WILL HOLD FOR IF PATIENT REQUEST Patient states feeling better. Patient states symptoms have improved. Reassessment: Patient appears in no apparent distress at this time. Patient and/or family updated on plan of care and expected duration. Pain level reassessed. Patient is alert, oriented x 3, equal unlabored respirations, skin warm/dry/pink. General: Appears in no apparent distress. comfortable, Behavior is calm, cooperative. Pain: Pain currently is 0 out of 10 on a pain scale. Neuro: Level of Consciousness is awake, alert, obeys commands. 15:30 Reassessment: Patient appears in no apparent distress at this time. Patient and/or db family updated on plan of care and expected duration. Pain level reassessed. Patient is alert, oriented x 3, equal unlabored respirations, skin warm/dry/pink. Patient states feeling better. 16:30 Reassessment: Patient appears in no apparent distress at this time. Patient and/or db family updated on plan of care and expected duration. Pain level reassessed. Patient is alert, oriented x 3, equal unlabored respirations, skin warm/dry/pink. 16:39 Reassessment: CALLED TO GIVE REPORT TO RECEIVING FACILITY. PLACED ON HOLD NO ANSWER db FROM FLOOR. 17:30 Reassessment: Patient appears in no apparent distress at this time. Patient and/or db family updated on plan of care and expected duration. Pain level reassessed. Patient is alert, oriented x 3, equal unlabored respirations, skin warm/dry/pink. PATIENT IS RESTING IN NAD. Respiratory: Airway is patent Respiratory effort is even, unlabored, Respiratory pattern is regular, symmetrical. 17:33 Reassessment: Patient appears in no apparent distress at this time. Patient and/or db family updated on plan of care and expected duration. Pain level reassessed. Patient is alert, oriented x 3, equal unlabored respirations, skin warm/dry/pink. 17:33 Reassessment: REPORT GIVEN TO ZACK ALVAREZ AT RECEIVING FACILITY. db 17:56 Reassessment: Patient appears in no apparent distress at this time. Patient and/or db family updated on plan of care and expected duration. Pain level reassessed. Patient is alert, oriented x 3, equal unlabored respirations, skin warm/dry/pink. 18:43 Reassessment: Patient appears in no apparent distress at this time. Patient and/or db family updated on plan of care and expected duration. Pain level reassessed. Patient is alert, oriented x 3, equal unlabored respirations, skin warm/dry/pink. FAMILY IS AT BEDSIDE. Vital Signs: 13:33 BP 138 / 88; Pulse 89; Resp 16; Temp 97.8(TE); Pulse Ox 97% on R/A; Weight 91.63 kg; hb Height 5 ft. 0 in. ; Pain 0/10; 14:03 BP 126 / 76; Pulse 74; Resp 18; Pulse Ox 96% on R/A; db 15:00 BP 139 / 85; Pulse 85; Resp 18; Pulse Ox 96% on R/A; db 16:00 BP 128 / 79; Pulse 79; Resp 18; Pulse Ox 96% on R/A; db 16:30 BP 133 / 72; Pulse 82; Resp 18; Pulse Ox 96% on R/A; db 17:30 BP 143 / 77; Pulse 87; Resp 16; Pulse Ox 95% on R/A; db 18:00 BP 135 / 84; Pulse 81; Resp 18; Pulse Ox 97% on R/A; db 18:30 BP 135 / 88; Pulse 79; Resp 18; Pulse Ox 97% on R/A; db 13:33 Body Mass Index 39.45 (91.63 kg, 152.4 cm) hb 13:33 Pain Scale: Adult hb ED Course: 13:21 Patient arrived in ED. mg5 13:21 Lauri Hahn MD is Attending Physician. ec2 13:34 Triage completed. hb 13:34 Arm band placed on. hb 13:50 Inserted saline lock: 20 gauge in right antecubital area, using aseptic technique. db Blood collected. 13:52 Melania Mack, ZACK is Primary Nurse. db 13:59 CT Abd/Pelvis - Without Contrast In Process Unspecified. EDMS 15:11 initiated a transfer with Edi Quiroz Rn from the [facility]/. eb 15:22 connected the urologist research nutritionist for [facility] with Dr. Hahn for patient transfer eb consultation. 15:50 connected the hospitalist research nutritionist for [facility] with Dr. Hahn for patient eb transfer consultation. 15:53 administrative approval given by Edi Quiroz Rn/ patient has been accepted to [facility] room 1615/ Dr. Tony Lowe has accepted the patient has accepted the patient in transfer/ report to be called to [phone]. 17:33 Patient has correct armband on for positive identification. Bed in low position. Call db light in reach. Side rails up X 1. Provided Education on: TRANSFER. Pulse ox on. NIBP on. 17:56 No provider procedures requiring assistance completed. Patient transferred, IV remains db in place. Administered Medications: 14:02 Drug: NS 0.9% IV 1000 ml IV at 1 bolus Per protocol; 1000 mL bolus Route: IV; Rate: 1 db bolus; Site: right antecubital; 14:05 Drug: TORadol - Ketorolac IVP 15 mg IVP once Route: IVP; Site: right antecubital; db 14:05 Drug: Ondansetron IVP 4 mg IVP once; over 2 minutes Route: IVP; Site: right antecubital;db 16:42 Drug: Rocephin IV 1 grams IV at calculated rate once; Given slow IV push per pharmacy db instructions Route: IV; Rate: calculated rate; Site: right antecubital; Medication: 17:33 VIS not applicable for this client. db Outcome: 15:09 ER care complete, transfer ordered by ec2 17:32 Condition: stable db 17:32 Instructed on the need for transfer, 19:22 Transferred by ground EMS tm6 19:22 Patient left the ED. tm6 Signatures: Dispatcher [employer] EDMS Socorro Catalan RN Gisele Wheat Danielle, RN RN Haydee Salgado mg5 Lauri Hahn MD MD ec2 Quang Owens RN RN tm6 Corrections: (The following items were deleted from the chart) 13:35 13:33 Chief complaint: Dysuria x 5 months, ureteral stone on 12/02, on Flomax a, Zofran, hb and Motrin, c/o nausea, decreased PO intake and persistent dysuria. Chief complaint: Dysuria x 5 months, ureteral stone on 12/02, on Flomax a, Zofran, and Motrin, c/o nausea, decreased PO intake and persistent dysuria. hb 13:35 13:33 BP 138 / 88; Pulse 89bpm; Resp 16bpm; Pulse Ox 97% RA; Temp 97.8F Temporal; hb hb
[2023-12-07 21:53] VITALS: TEMP 97.8
[2023-12-07 22:05] VITALS: BP 135/88; O2SAT 97
== END ==
LOC: ER 13:17
DX: N20.1 Calculus of ureter (principal); Z87.442 Personal history of urinary calculi; I10 Essential (primary) hypertension
CPT/HCPCS: 85025; 81001; 36415; 83690; 80053; 74176; 96375; 96374; 99285; J2405; J7030; J0696

== ENCOUNTER → 2023-12-15 | Emergency (ER) | payer BC ==
[~2023-12-15] MED LIST changes: +MORPHINE 4 MG/ML SYR ONE; -NA CHLORIDE 0.9% 50 ML ONE; +levoFLOXacin 750 MG TAB ONE
[2023-12-15 15:55] LABS: Specific Gravity 1.007 (1.005-1.030); Urine Bacteria <20 /HPF (<20); Urine Bilirubin NEGATIVE (Negative); Urine Blood 3+ (OVER) (Negative); Urine Clarity Extremely Turbid (Clear); Urine Color Colorless (Yellow); Urine Glucose NEGATIVE (Negative); Urine Protein 1+ (Negative); Urine RBC >50 /HPF (None Seen); Urine Urobilinogen Normal (Normal)
[2023-12-15 16:26] LABS: Absolute Lymphocytes (CBC) 1.8 K/uL (0.7-4.9); Hematocrit 40.1 % (36.0-45.0); Lymphocytes % 18.8 % (15.3-44.8); MPV 9.4 fL (7.6-11.3); Platelets 261 thou/uL (152-406); RBC Red Blood Cell Count 4.35 M/uL (3.86-4.86)
[2023-12-15 16:40] LABS: Albumin 3.8 g/dL (3.4-5.0); Bilirubin Total 0.3 mg/dL (0.2-1.0); Potassium 3.8 mEq/L (3.5-5.1); Protein, Total 7.9 g/dL (6.4-8.2)
--- NOTE | 2023-12-15 17:04 | RAD REPORT ---
EXAM DESCRIPTION: RAD - Abdomen 1 View (KUB) - 12/15/2023 4:56 pm CLINICAL HISTORY: ABD PAIN Pain COMPARISON: Abdomen Pelvis Wo Contrast dated 12/07/2023 FINDINGS: The bowel gas pattern is non-obstructive. No evidence of free air or pneumatosis. There is significant stool throughout the colon. Left double-J stent is in place, proximal pigtail somewhat u nfolded. Distal aspect is likely within the urinary bladder. Several small calculi suspected within t he bladder near the distal pigtail.
--- NOTE | 2023-12-15 17:48 | ER ---
Nurse's Notes [facility] Name: Miryam Leon Age: 58 yrs Sex: Female : 1965 Arrival Date: 12/15/2023 Time: 15:13 Bed 19 Private MD: Diagnosis: Hydronephrosis with renal and ureteral calculous obstruction-WITH DOUBLE J STENT;UTI/ Urinary tract infection, site not specified;Nausea Presentation: 12/15 15:22 Chief complaint: Patient states: Diagnosed with kidney stone last week and is supposed cm10 to have surgery on Saturday to have stent placed but is now having increased pain. Pt states that the pain is in her pelvic area. No fevers, pt reports burning with urination. Coronavirus screen: Vaccine status: Patient reports receiving the 2nd dose of the covid vaccine. Client denies travel out of the [place] in the last 14 days. Ebola Screen: Patient denies travel to an Ebola-affected area in the 21 days before illness onset. No symptoms or risks identified at this time. Initial Sepsis Screen: Does the patient meet any 2 criteria? No. Patient's initial sepsis screen is negative. Does the patient have a suspected source of infection? No. Patient's initial sepsis screen is negative. Risk Assessment: Do you want to hurt yourself or someone else? Patient reports no desire to harm self or others. Onset of symptoms was December 15, 2023. 15:22 Method Of Arrival: Ambulatory 10 15:22 Acuity: ALLIE 3 cm10 Historical: - Allergies: 15:24 No Known Allergies; cm10 - PMHx: 15:24 Hypertension; cm10 - PSHx: 15:24 Cholecystectomy; cm10 - Immunization history:: Adult Immunizations up to date. - Social history:: Smoking status: Patient denies any tobacco usage or history of. - Family history:: not pertinent. Screenin:30 [facility] ED Fall Risk Assessment (Adult) History of falling in the last 3 months, kc6 including since admission No falls in past 3 months (0 pts) Confusion or Disorientation No (0 pts) Intoxicated or Sedated No (0 pts) Impaired Gait No (0 pts) Mobility Assist Device Used No (0 pt) Altered Elimination No (0 pt) Score/Fall Risk Level 0 - 2 = Low Risk. Abuse screen: Denies threats or abuse. Denies injuries from another. Nutritional screening: No deficits noted. Tuberculosis screening: No symptoms or risk factors identified. Assessment: 15:30 General: Appears in no apparent distress. uncomfortable, well groomed, well developed, kc6 Behavior is calm, cooperative, appropriate for age. Pain: Complains of pain in left lower quadrant and left femoral area. Neuro: Level of Consciousness is awake, alert, obeys commands, Oriented to person, place, time, situation, Appropriate for age. Cardiovascular: Capillary refill < 3 seconds. Respiratory: Airway is patent Trachea midline Respiratory effort is even, unlabored, Respiratory pattern is regular, symmetrical. GI: Bowel sounds present X 4 quads. Abd is soft X 4 quads Abdomen is tender to palpation in left lower quadrant. : Urine is clear, Reports burning with urination, pain in left lower quadrant(s). EENT: No signs and/or symptoms were reported regarding the EENT system. Derm: No signs and/or symptoms reported regarding the dermatologic system. Skin is intact, is healthy with good turgor, Skin is pink, warm \T\ dry. Musculoskeletal: No signs and/or symptoms reported regarding the musculoskeletal system. Circulation, motion, and sensation intact. Capillary refill < 3 seconds, Range of motion: intact in all extremities. 16:30 Reassessment: Patient appears in no apparent distress at this time. No changes from kc6 previously documented assessment. Patient and/or family updated on plan of care and expected duration. Pain level reassessed. Patient is alert, oriented x 3, equal unlabored respirations, skin warm/dry/pink. 17:23 Reassessment: Patient appears in no apparent distress at this time. No changes from kc6 previously documented assessment. Patient and/or family updated on plan of care and expected duration. Pain level reassessed. Patient is alert, oriented x 3, equal unlabored respirations, skin warm/dry/pink. 18:16 Reassessment: Patient appears in no apparent distress at this time. No changes from kc6 previously documented assessment. Patient and/or family updated on plan of care and expected duration. Pain level reassessed. Patient is alert, oriented x 3, equal unlabored respirations, skin warm/dry/pink. Vital Signs: 15:22 BP 137 / 76; Pulse 77; Resp 18; Temp 98.4; Pulse Ox 96% on R/A; Weight 90.72 kg; Height cm10 5 ft. 0 in. ; Pain 9/10; 18:16 BP 140 / 60; Pulse 70; Resp 15 S; Pulse Ox 97% on R/A; kc6 15:22 Body Mass Index 39.06 (90.72 kg, 152.4 cm) cm10 15:22 Pain Scale: Adult cm10 ED Course: 15:17 Patient arrived in ED. ts1 15:24 Triage completed. cm10 15:24 Arm band placed on Patient placed in an exam room, on a stretcher. cm10 15:30 Patient has correct armband on for positive identification. Bed in low position. Call kc6 light in reach. Side rails up X 1. Adult w/ patient. Client placed on continuous cardiac and pulse oximetry monitoring. NIBP monitoring applied. 15:30 Inserted saline lock: 20 gauge in right antecubital area, using aseptic technique. kc6 Blood collected. Patient maintains SpO2 saturation greater than 95% on room air. 15:41 Jonna Alvarez, ZACK is Primary Nurse. kc6 15:48 Colton Aguilera MD is Attending Physician. ying 16:58 Abdomen 1 View (KUB) XRAY In Process Unspecified. EDMS 18:16 No provider procedures requiring assistance completed. IV discontinued, intact, kc6 bleeding controlled, No redness/swelling at site. Pressure dressing applied. Administered Medications: 16:18 Drug: NS 0.9% IV 1000 ml IV at 1 bolus Per protocol; 1000 mL bolus Route: IV; Rate: 1 kc6 bolus; Site: right antecubital; 17:22 Follow up: Response: No adverse reaction; IV Status: Completed infusion; IV Intake: kc6 1000ml 16:18 Drug: Ondansetron IVP 4 mg IVP once; over 2 minutes Route: IVP; Site: right antecubital;kc6 17:22 Follow up: Response: No adverse reaction; Nausea is decreased kc6 16:18 Drug: Ketorolac IVP 30 mg IVP once Route: IVP; Site: right antecubital; kc6 17:23 Follow up: Response: No adverse reaction; Pain is decreased kc6 16:18 Drug: morphine IVP or IV 4 mg IVP once over 4 mins Route: IVP; Infused Over: 4 mins; kc6 Site: right antecubital; 17:23 Follow up: Response: No adverse reaction; Pain is decreased; RASS: Alert and Calm (0) kc6 16:19 Drug: Rocephin IV 1 grams IV at per protocol once; Given slow IV push per pharmacy kc6 instructions Route: IV; Rate: per protocol; Site: right antecubital; 17:23 Follow up: Response: No adverse reaction; IV Status: Completed infusion; IV Intake: [id number] 17:22 Drug: LevOfloxacin PO 750 mg PO once Route: PO; kc6 18:15 Follow up: Response: No adverse reaction kc6 Medication: 18:16 VIS not applicable for this client. kc6 Intake: 17:22 IV: 1000ml; Total: 1000ml. kc6 17:23 IV: 50ml; Total: 1050ml. kc6 Outcome: 17:47 Discharge ordered by . ying 18:16 Discharged to home ambulatory, with significant other, kc6 18:16 Condition: improved 18:16 Discharge instructions given to patient, Instructed on discharge instructions, follow up and referral plans. medication usage, Demonstrated understanding of instructions, follow-up care, medications, Prescriptions given X 4, 18:16 Patient left the ED. kc6 Signatures: Dispatcher [employer] EDColton Lee MD MD cha Campbell, Kaitlyn RN RN bj6 Melissa Lazcano PAS PAS ts1 Yumiko Cruz RN RN cm10
--- NOTE | 2023-12-15 17:48 | EDPHYS ---
Physician Documentation [facility] Name: Miryam Leon Age: 58 yrs Sex: Female : 1965 Arrival Date: 12/15/2023 Time: 15:13 Bed 19 Private MD: YANNICK Physician Colton Aguilera HPI: 12/15 17:37 This 58 yrs old Female presents to ER via Ambulatory with complaints of ying Abdominal Pain, Pelvic Pain. 17:37 The patient complains of pain in the left low back and left mid back. The pain radiates ying to the left low back and left mid back. Modifying factors: The symptoms are alleviated by nothing. the symptoms are aggravated by nothing. The patient presents with pain that is acute, and decreased range of motion. The symptoms are located in the low back, coccyx area, left low back and left mid back. Associated signs and symptoms: Pertinent positives: abdominal pain, nausea. Historical: - Allergies: 15:24 No Known Allergies; cm10 - PMHx: 15:24 Hypertension; cm10 - PSHx: 15:24 Cholecystectomy; cm10 - Immunization history:: Adult Immunizations up to date. - Social history:: Smoking status: Patient denies any tobacco usage or history of. - Family history:: not pertinent. ROS: 17:37 Constitutional: Negative for fever, chills, and weight loss, Eyes: Negative for injury, ying pain, redness, and discharge, ENT: Negative for injury, pain, and discharge, Neck: Negative for injury, pain, and swelling, Cardiovascular: Negative for chest pain, palpitations, and edema, Respiratory: Negative for shortness of breath, cough, wheezing, and pleuritic chest pain, Abdomen/GI: Negative for abdominal pain, nausea, vomiting, diarrhea, and constipation, : Negative for injury, bleeding, discharge, and swelling, MS/Extremity: Negative for injury and deformity, Skin: Negative for injury, rash, and discoloration, Neuro: Negative for headache, weakness, numbness, tingling, and seizure, 17:37 Back: Positive for flank pain, on the left, Exam: 17:37 Constitutional: This is a well developed, well nourished patient who is awake, alert, ying and in no acute distress. Head/Face: Normocephalic, atraumatic. Eyes: Pupils equal round and reactive to light, extra-ocular motions intact. Lids and lashes normal. Conjunctiva and sclera are non-icteric and not injected. Cornea within normal limits. Periorbital areas with no swelling, redness, or edema. ENT: Nares patent. No nasal discharge, no septal abnormalities noted. Tympanic membranes are normal and external auditory canals are clear. Oropharynx with no redness, swelling, or masses, exudates, or evidence of obstruction, uvula midline. Mucous membranes moist. Neck: Trachea midline, no thyromegaly or masses palpated, and no cervical lymphadenopathy. Supple, full range of motion without nuchal rigidity, or vertebral point tenderness. No Meningismus. Chest/axilla: Normal chest wall appearance and motion. Nontender with no deformity. No lesions are appreciated. Cardiovascular: Regular rate and rhythm with a normal S1 and S2. No gallops, murmurs, or rubs. Normal PMI, no JVD. No pulse deficits. Respiratory: Lungs have equal breath sounds bilaterally, clear to auscultation and percussion. No rales, rhonchi or wheezes noted. No increased work of breathing, no retractions or nasal flaring. Abdomen/GI: Soft, non-tender, with normal bowel sounds. No distension or tympany. No guarding or rebound. No evidence of tenderness throughout. Back: No spinal tenderness. No costovertebral tenderness. Full range of motion. Female : Normal external genitalia. Skin: Warm, dry with normal turgor. Normal color with no rashes, no lesions, and no evidence of cellulitis. MS/ Extremity: Pulses equal, no cyanosis. Neurovascular intact. Full, normal range of motion. Neuro: Awake and alert, GCS 15, oriented to person, place, time, and situation. Cranial nerves II-XII grossly intact. Motor strength 5/5 in all extremities. Sensory grossly intact. Cerebellar exam normal. Normal gait. Psych: Awake, alert, with orientation to person, place and time. Behavior, mood, and affect are within normal limits. Vital Signs: 15:22 BP 137 / 76; Pulse 77; Resp 18; Temp 98.4; Pulse Ox 96% on R/A; Weight 90.72 kg; Height cm10 5 ft. 0 in. ; Pain 9/10; 18:16 BP 140 / 60; Pulse 70; Resp 15 S; Pulse Ox 97% on R/A; kc6 15:22 Body Mass Index 39.06 (90.72 kg, 152.4 cm) cm10 15:22 Pain Scale: Adult cm10 MDM: 15:48 Patient medically screened. yign 17:44 Differential diagnosis: nephrolithiasis, pyelonephritis, UTI, Obesity. Data reviewed: [facility] vital signs, nurses notes, lab test result(s), radiologic studies, plain films. Consideration of Admission/Observation Escalation of care including admission/observation considered. Management of patient was discussed with the following: Advertising Teacher: DR ODOM. I considered the following discharge prescriptions or medication management in the emergency department Medications were administered in the Emergency Department. See MAR. Independent interpretation of the following test(s) in the Emergency Department X-Ray: My interpretation is KUB. Test considered but Not performed: CT: NO CT STONE. Historians other than the Patient: Spouse/Significant Other: , WELL INFORMED. Care significantly affected by the following chronic conditions: Hypertension. Counseling: I had a detailed discussion with the patient and/or guardian regarding the historical points, exam findings, and any diagnostic results supporting the discharge/admit diagnosis, lab results, radiology results, the need for outpatient follow up, for definitive care, a urologist. 12/15 15:37 Order name: Urinalysis w/ reflexes; Complete Time: 17:03 cm10 12/15 15:50 Order name: CBC with Diff; Complete Time: 17:03 [facility] 12/15 15:50 Order name: CMP; Complete Time: 17:03 [facility] 12/15 15:50 Order name: Lipase; Complete Time: 17:03 [facility] 12/15 16:04 Order name: Urine Culture EDAK 12/15 15:50 Order name: Abdomen 1 View (KUB) XRAY; Complete Time: 17:05 [facility] 12/15 15:50 Order name: IV Saline Lock; Complete Time: 16:18 [facility] 12/15 15:50 Order name: Labs collected and sent; Complete Time: 16:18 [facility] Administered Medications: 16:18 Drug: NS 0.9% IV 1000 ml IV at 1 bolus Per protocol; 1000 mL bolus Route: IV; Rate: 1 kc6 bolus; Site: right antecubital; 17:22 Follow up: Response: No adverse reaction; IV Status: Completed infusion; IV Intake: kc6 1000ml 16:18 Drug: Ondansetron IVP 4 mg IVP once; over 2 minutes Route: IVP; Site: right antecubital;kc6 17:22 Follow up: Response: No adverse reaction; Nausea is decreased kc6 16:18 Drug: Ketorolac IVP 30 mg IVP once Route: IVP; Site: right antecubital; kc6 17:23 Follow up: Response: No adverse reaction; Pain is decreased kc6 16:18 Drug: morphine IVP or IV 4 mg IVP once over 4 mins Route: IVP; Infused Over: 4 mins; kc6 Site: right antecubital; 17:23 Follow up: Response: No adverse reaction; Pain is decreased; RASS: Alert and Calm (0) kc6 16:19 Drug: Rocephin IV 1 grams IV at per protocol once; Given slow IV push per pharmacy kc6 instructions Route: IV; Rate: per protocol; Site: right antecubital; 17:23 Follow up: Response: No adverse reaction; IV Status: Completed infusion; IV Intake: [id number] 17:22 Drug: LevOfloxacin PO 750 mg PO once Route: PO; kc6 18:15 Follow up: Response: No adverse reaction kc6 Disposition Summary: 12/15/23 17:47 Discharge Ordered Notes: Location: Home ying Problem: new ying Symptoms: have improved ying Condition: Stable ying Diagnosis - Hydronephrosis with renal and ureteral calculous obstruction - WITH DOUBLE J STENT ying - UTI/ Urinary tract infection, site not specified ying - Nausea ying Followup: ying - With: Private Physician - When: 1 - 2 days - Reason: Recheck today's complaints, Continuance of care, Re-evaluation by your physician Discharge Instructions: - Discharge Summary Sheet ying - Kidney Stones ying - Nausea, Adult ying - Urinary Tract Infection, Adult ying - Kidney Stones, [id number] ying - Urinary Tract Infection, Adult, [id number] ying - Hydronephrosis ying - Nausea, Adult, [id number] ying Forms: - Medication Reconciliation Form ying - Thank You Letter ying - Antibiotic Education ying - Prescription Opioid Use ying - Patient Portal Instructions ying - Leadership Thank You Letter [facility] Prescriptions: - acetaminophen-codeine 300-30 mg Oral tablet - take 2 tablet ORAL route every 6 hours as needed for pain; 20 tablet; Refills: ying 0, Product Selection Permitted - ketorolac 10 mg Oral tablet - take 1 tablet ORAL route 3 times per day for 3 days as needed for pain; 9 ying tablet; Refills: 0, Product Selection Permitted - ondansetron 4 mg Oral Tablet,disintegrating - take 1 tablet ORAL route every 6-8 hours as needed for nausea and vomiting; 20 ying tablet; Refills: 0, Product Selection Permitted - levofloxacin 500 mg Oral tablet - take 1 tablet ORAL route once daily for 7 days; 7 tablet; Refills: 0, Product ying Selection Permitted Signatures: Dispatcher [employer] Colton Ludwig, Jonna Rodriguez MD, cha, RN RN kc6 Yumiko Cruz RN RN cm10
[2023-12-15 18:24] VITALS: TEMP 98.4
[2023-12-15 18:41] VITALS: BP 140/60; O2SAT 97
== END ==
LOC: ER 15:13
DX: N13.2 Hydronephrosis with renal and ureteral calculous obstruction (principal); N39.0 Urinary tract infection, site not specified; R11.0 Nausea; I10 Essential (primary) hypertension
CPT/HCPCS: 96365; 87088; 85025; 81001; 87086; 36415; 83690; 80053; 74018; 96375; 99285; J2405; J7030; J0696

== ENCOUNTER 2024-03-26 12:09 | Emergency (ER) | payer BC ==
[2024-03-26 12:56] LABS: Absolute Lymphocytes (CBC) 0.9 K/uL (0.7-4.9); Absolute Monocytes 0.4 K/uL (0.1-1.3); Absolute Neutrophil 6.5 K/uL (1.8-8.0); Basophils % 0.6 % (0-1.3); Eosinophils % 0.4 % (0-4.4); Hematocrit 44.3 % (36.0-45.0); Hemoglobin 14.5 g/dL (12.0-15.0); Lymphocytes % 11.4 % (15.3-44.8); MCH 30.3 pg (27.0-35.0); MCHC 32.8 g/dL (32.0-36.0); MCV 92.6 fL (80-100); MPV 9.6 fL (7.6-11.3); Neutrophils % 82.6 % (41.7-73.7); Platelets 271 thou/uL (152-406); RBC Red Blood Cell Count 4.79 M/uL (3.86-4.86); Red Cell Distribution Width 13.4 % (12.1-15.2)
[2024-03-26 13:00] LABS: Specific Gravity 1.021 (1.005-1.030); Sqamous Epithelial <5 /HPF (None Seen); Transitional Epithelial <5 /HPF (None Seen); Urine Bacteria None Seen /HPF (<20); Urine Bilirubin NEGATIVE (Negative); Urine Blood 2+ (Negative); Urine Clarity Extremely Turbid (Clear); Urine Color Yellow (Yellow); Urine Culture Reflex Order NOT NEEDED; Urine Glucose NEGATIVE (Negative); Urine Ketones NEGATIVE (Negative); Urine Microscopic Reflex YN ORDER UMIC; Urine Mucus Slight /HPF (None Seen); Urine Nitrite NEGATIVE (Negative); Urine Protein TRACE (Negative); Urine Urobilinogen Normal (Normal); Urine WBC <5 /HPF (<5)
[2024-03-26 13:16] LABS: Albumin 3.9 g/dL (3.4-5.0); Albumin/Globulin Ratio 0.9 (1.1-1.8); Anion Gap 11.8 mEq/L (5.0-15.0); Bilirubin Total 0.3 mg/dL (0.2-1.0); Globulin 4.3 g/dL (2.3-3.5); Potassium 3.8 mEq/L (3.5-5.1); Protein, Total 8.2 g/dL (6.4-8.2)
--- NOTE | 2024-03-26 13:56 | RAD REPORT ---
EXAM DESCRIPTION: CT - Abdomen Pelvis W Contrast - 03/26/2024 1:04 pm CLINICAL HISTORY: ABD PAIN COMPARISON: Abdomen Pelvis W Contrast dated 07/01/2021; Abdomen Pelvis W Contrast dated 09/07/2018 ; Abdomen Pelvis W Contrast dated 01/08/2017 TECHNIQUE: Thin cut axial CT imaging of the abdomen and pelvis was performed following intravenous a dministration of 100 mL Isovue 300. Multiplanar reformats were generated and reviewed. All CT scans are performed using dose optimization technique as appropriate and may include automated exposure control or mA/KV adjustment according to patient size. FINDINGS: No suspicious findings in the lung bases. Elevation of the right hemidiaphragm again seen. The liver shows numerous fluid density cysts, largest measuring 2.1 cm, likely stable. Adrenal glands , spleen, and pancreas show no suspicious findings. Gallbladder was surgically removed. Symmetric renal function is seen with no hydronephrosis or suspicious renal mass. 1 cm exophytic righ t lower pole cyst, stable. No dilated bowel loops or bowel wall thickening. Appendix is unremarkable. Segments of fluid opacific ation within nondistended distal small bowel loops, nonspecific. No free air, free fluid or inflammat ory stranding. No suspicious mass or bulky lymphadenopathy. Small supraumbilical fat containing herni a measuring 1.6 cm in diameter at the neck. The urinary bladder is decompressed limiting evaluation. No suspicious bony findings. IMPRESSION: Fluid opacification within nondistended segments of distal small bowel loops, a nonspeci fic finding, may relate to diarrheal state. Other incidental findings as above. No other acute intra-abdominal process.
--- NOTE | 2024-03-26 14:03 | ER ---
Nurse's Notes [facility] Name: Miryam Leon Age: 58 yrs Sex: Female : 1965 Arrival Date: 03/26/2024 Time: 12:09 Bed 12 Private MD: Dilan Avina Diagnosis: Gastroenteritis, diarrhea, abdominal pain Presentation: 03/26 12:22 Chief complaint: Patient states: i have diarrhea and nausea and pain in my back on iw right side, started yesterday. Coronavirus screen: Client presents with at least one sign or symptom that may indicate coronavirus-19. Ebola Screen: Patient negative for fever greater than or equal to 101.5 degrees Fahrenheit, and additional compatible Ebola Virus Disease symptoms Patient denies exposure to infectious person. Patient denies travel to an Ebola-affected area in the 21 days before illness onset. No symptoms or risks identified at this time. Initial Sepsis Screen: Does the patient meet any 2 criteria? No. Patient's initial sepsis screen is negative. Does the patient have a suspected source of infection? No. Patient's initial sepsis screen is negative. Risk Assessment: Do you want to hurt yourself or someone else? Patient reports no desire to harm self or others. Onset of symptoms was March 25, 2024. 12:22 Method Of Arrival: Ambulatory iw 12:22 Acuity: ALLIE 3 iw Historical: - Allergies: 12:23 No Known Allergies; iw - Home Meds: 12:23 None [Active]; iw - PMHx: 12:23 Hypertension; iw - PSHx: 12:23 Cholecystectomy; iw - Immunization history:: Adult Immunizations Client reports receiving the 2nd dose of the Covid vaccine. - Infectious Disease History:: Denies. - Social history:: Smoking status: Patient denies any tobacco usage or history of. Screenin:46 [facility] ED Fall Risk Assessment (Adult) History of falling in the last 3 months, nj1 including since admission No falls in past 3 months (0 pts) Confusion or Disorientation No (0 pts) Intoxicated or Sedated No (0 pts) Impaired Gait No (0 pts) Mobility Assist Device Used No (0 pt) Altered Elimination No (0 pt) Score/Fall Risk Level 0 - 2 = Low Risk. 13:46 Abuse screen: Denies threats or abuse. Denies injuries from another. Nutritional nj1 screening: No deficits noted. Tuberculosis screening: No symptoms or risk factors identified. Assessment: 12:56 General: Appears in no apparent distress. comfortable, Behavior is calm, cooperative, nj1 appropriate for age. 12:56 Pain: Complains of pain in back Pain radiates to abdomen Pain currently is 3 out of 10 nj1 on a pain scale. 12:56 Neuro: Level of Consciousness is awake, alert, obeys commands. Cardiovascular: nj1 Patient's skin is warm and dry. Respiratory: Airway is patent Respiratory effort is even, unlabored. GI: Patient currently denies nausea. 13:57 Reassessment: Patient appears in no apparent distress at this time. Patient and/or iw family updated on plan of care and expected duration. Pain level reassessed. Patient is alert, oriented x 3, equal unlabored respirations, skin warm/dry/pink. Vital Signs: 12:22 BP 131 / 75; Pulse 90; Resp 16; Temp 98.3; Pulse Ox 96% ; Weight 92.99 kg; Height 5 ft. iw 0 in. ; Pain 5/10; 13:57 BP 128 / 77; Pulse 85; Resp 16; Pulse Ox 99% on R/A; Pain 3/10; iw 12:22 Body Mass Index 40.04 (92.99 kg, 152.4 cm) iw 12:22 Pain Scale: Adult iw 13:57 Pain Scale: Adult iw ED Course: 12:12 Patient arrived in ED. mr 12:12 Fabrice Dilan is Private Physician. mr 12:13 Ralph Levine MD is Attending Physician. sp3 12:23 Triage completed. iw 12:24 Arm band placed on. iw 12:39 Erin Schrader, RN is Primary Nurse. nj1 13:06 CT Abd/Pelvis - IV Contrast Only In Process Unspecified. EDMS Administered Medications: No medications were administered Outcome: 14:02 Discharge ordered by . sp3 14:23 Patient left the ED. nj1 Signatures: Dispatcher [employer] EDMS Marnie Decker, Reg Reg Mony Johnson, RN RN iw Ralph Levine MD MD sp3 Erin Schrader RN RN nj1 Corrections: (The following items were deleted from the chart) 13:45 12:56 General: Appears in no apparent distress. comfortable, Behavior is calm, nj1 cooperative, appropriate for age, nj1
--- NOTE | 2024-03-26 14:03 | EDPHYS ---
Physician Documentation [facility] Name: Miryam Leon Age: 58 yrs Sex: Female : 1965 Arrival Date: 03/26/2024 Time: 12:09 Bed 12 Private MD: Dilan Avina ED Physician Ralph Levine HPI: 03/26 13:02 This 58 yrs old Female presents to ER via Ambulatory with complaints of sp3 Nausea, Vomiting, Back Pain. 13:02 58-year-old female with history of hypertension presents with right lower quadrant sp3 abdominal pain and right-sided flank pain for 24 hours coupled with vomiting. She denies any urinary frequency, blood in her urine or dysuria. She does complain of diarrhea nonbloody and none mucus in nature. She denies fever, chest pain, shortness of breath, prior kidney stone, or any other signs or symptoms on ROS at this time.. Historical: - Allergies: 12:23 No Known Allergies; iw - Home Meds: 12:23 None [Active]; iw - PMHx: 12:23 Hypertension; iw - PSHx: 12:23 Cholecystectomy; iw - Immunization history:: Adult Immunizations Client reports receiving the 2nd dose of the Covid vaccine. - Infectious Disease History:: Denies. - Social history:: Smoking status: Patient denies any tobacco usage or history of. ROS: 13:02 Constitutional: Negative for fever, chills, and weight loss, Eyes: Negative for injury, sp3 pain, redness, and discharge, ENT: Negative for injury, pain, and discharge, Neck: Negative for injury, pain, and swelling, Cardiovascular: Negative for chest pain, palpitations, and edema, Respiratory: Negative for shortness of breath, cough, wheezing, and pleuritic chest pain, MS/Extremity: Negative for injury and deformity, Skin: Negative for injury, rash, and discoloration, Neuro: Negative for headache, weakness, numbness, tingling, and seizure, Psych: Negative for depression, anxiety, suicide ideation, homicidal ideation, and hallucinations, Allergy/Immunology: Negative for hives, rash, and allergies, Endocrine: Negative for neck swelling, polydipsia, polyuria, polyphagia, and marked weight changes, 13:02 All other systems are negative, Exam: 13:03 Constitutional: This is a well developed, well nourished patient who is awake, alert, sp3 and in no acute distress. Head/Face: Normocephalic, atraumatic. Eyes: Pupils equal round and reactive to light, extra-ocular motions intact. Lids and lashes normal. Conjunctiva and sclera are non-icteric and not injected. Cornea within normal limits. Periorbital areas with no swelling, redness, or edema. ENT: Nares patent. No nasal discharge, no septal abnormalities noted. External auditory canals are clear. Oropharynx with no redness, swelling, or masses, exudates, or evidence of obstruction, uvula midline. Mucous membranes moist. Neck: Trachea midline, no thyromegaly or masses palpated, and no cervical lymphadenopathy. Supple, full range of motion without nuchal rigidity, or vertebral point tenderness. No Meningismus. Chest/axilla: Normal chest wall appearance and motion. Nontender with no deformity. No lesions are appreciated. Cardiovascular: Regular rate and rhythm with a normal S1 and S2. No gallops, murmurs, or rubs. Normal PMI, no JVD. No pulse deficits. Respiratory: Lungs have equal breath sounds bilaterally, clear to auscultation and percussion. No rales, rhonchi or wheezes noted. No increased work of breathing, no retractions or nasal flaring. Skin: Warm, dry with normal turgor. Normal color with no rashes, no lesions, and no evidence of cellulitis. MS/ Extremity: Pulses equal, no cyanosis. Neurovascular intact. Full, normal range of motion. Neuro: Awake and alert, GCS 15, oriented to person, place, time, and situation. Cranial nerves II-XII grossly intact. Motor strength 5/5 in all extremities. Sensory grossly intact. Cerebellar exam normal. Normal gait. Psych: Awake, alert, with orientation to person, place and time. Behavior, mood, and affect are within normal limits. 13:03 Abdomen/GI: Right-sided abdominal pain to palpation without peritoneal signs, rebound or guarding. Right-sided CVA tenderness is present., Vital Signs: 12:22 BP 131 / 75; Pulse 90; Resp 16; Temp 98.3; Pulse Ox 96% ; Weight 92.99 kg; Height 5 ft. iw 0 in. ; Pain 5/10; 13:57 BP 128 / 77; Pulse 85; Resp 16; Pulse Ox 99% on R/A; Pain 3/10; iw 12:22 Body Mass Index 40.04 (92.99 kg, 152.4 cm) iw 12:22 Pain Scale: Adult iw 13:57 Pain Scale: Adult iw MDM: 12:43 Patient medically screened. sp3 13:03 Data reviewed: vital signs, nurses notes, lab test result(s), radiologic studies. ED sp3 course: 58-year-old female with abdominal pain and flank pain. Differential diagnosis is broad and includes biliary pathology, appendix, gastroenteritis, kidney stone, UTI/pyelonephritis spectrum, vascular disease including aortic pathology, among others. Workup will be broad and include laboratory values, UA, CT scan of the abdomen pelvis with IV contrast. I am not highly suspicious for thorax pathology including ACS, PE, pneumonia, or any other concerning process. Disposition pending workup and patient course. Vital signs are normal. Patient is in no acute distress.. 14:02 ED course: Full workup negative and CT demonstrates diarrheal state. We will send her sp3 home on Cipro and Flagyl with PCP follow-up.. 03/26 12:28 Order name: CBC with Diff; Complete Time: 13:17 iw 03/26 12:28 Order name: CMP; Complete Time: 13:17 iw 03/26 12:28 Order name: Lipase; Complete Time: 13:18 iw 03/26 12:28 Order name: Urinalysis w/ reflexes; Complete Time: 13:17 iw 03/26 12:49 Order name: CT Abd/Pelvis - IV Contrast Only; Complete Time: 14:01 sp3 03/26 12:28 Order name: IV Saline Lock; Complete Time: 12:56 iw 03/26 12:28 Order name: Labs collected and sent; Complete Time: 12:56 iw Administered Medications: No medications were administered Disposition Summary: 03/26/24 14:02 Discharge Ordered Notes: Location: Home sp3 Condition: Stable sp3 Diagnosis - Gastroenteritis, diarrhea, abdominal pain sp3 Followup: sp3 - With: Private Physician - When: Upon discharge from the Emergency Department - Reason: Continuance of care Discharge Instructions: - Discharge Summary Sheet sp3 - Diarrhea, Adult sp3 Forms: - Medication Reconciliation Form sp3 - Antibiotic Education sp3 - Prescription Opioid Use sp3 - Patient Portal Instructions sp3 - Leadership Thank You Letter sp3 Prescriptions: - Cipro 500 mg Oral Tablet - take 1 tablet ORAL route every 12 hours for 10 days; 20 tablet; Refills: 0, sp3 Product Selection Permitted - Flagyl 500 mg Oral Tablet - take 1 tablet ORAL route every 8 hours for 10 days; 30 tablet; Refills: 0, sp3 Product Selection Permitted Signatures: Dispatcher [employer] Mony Messer RN RN iw Patel, Setul, MD MD sp3
[2024-03-26 15:37] VITALS: BP 128/77; TEMP 98.3; O2SAT 99
== END 2024-03-26 14:23 | disposition home or self-care (01) ==
LOC: ER 12:09
DX: K52.9 Noninfective gastroenteritis and colitis, unspecified (principal); I10 Essential (primary) hypertension
CPT/HCPCS: 85025; 81001; 36415; 83690; 80053; 74177; Q9967

== ENCOUNTER 2024-10-14 15:59 | Emergency (ER) | payer BC, MEDICARE ==
[2024-10-14 17:35] LABS: Absolute Basophils 0.1 K/uL (0-0.5); Absolute Eosinophils 0.1 K/uL (0-0.5); Absolute Lymphocytes (CBC) 1.7 K/uL (0.7-4.9); Absolute Monocytes 0.8 K/uL (0.1-1.3); Absolute Neutrophil 8.4 K/uL (1.8-8.0); Basophils % 0.7 % (0-1.3); Hematocrit 43.7 % (36.0-45.0); Hemoglobin 14.2 g/dL (12.0-15.0); Lymphocytes % 14.9 % (15.3-44.8); MCH 30.4 pg (27.0-35.0); MCHC 32.6 g/dL (32.0-36.0); MCV 93.3 fL (80-100); MPV 9.8 fL (7.6-11.3); Monocytes % 7.1 % (3.3-12.3); Neutrophils % 76.3 % (41.7-73.7); Platelets 280 thou/uL (152-406); RBC Red Blood Cell Count 4.68 M/uL (3.86-4.86); Red Cell Distribution Width 13.6 % (12.1-15.2)
[2024-10-14 17:59] LABS: Albumin 3.7 g/dL (3.4-5.0); Albumin/Globulin Ratio 0.9 (1.1-1.8); Anion Gap 6.8 mEq/L (5.0-15.0); Bilirubin Total 0.2 mg/dL (0.2-1.0); Globulin 3.9 g/dL (2.3-3.5); Potassium 3.8 mEq/L (3.5-5.1); Protein, Total 7.6 g/dL (6.4-8.2)
[2024-10-14 18:34] LABS: Specific Gravity 1.008 (1.005-1.030); Sqamous Epithelial <5 /HPF (None Seen); Urine Bacteria <20 /HPF (<20); Urine Bilirubin NEGATIVE (Negative); Urine Blood Trace (Negative); Urine Clarity Turbid (Clear); Urine Color Colorless (Yellow); Urine Culture Reflex Order NOT NEEDED; Urine Glucose NEGATIVE (Negative); Urine Ketones NEGATIVE (Negative); Urine Microscopic Reflex YN ORDER UMIC; Urine Nitrite NEGATIVE (Negative); Urine Protein NEGATIVE (Negative); Urine RBC <5 /HPF (None Seen); Urine Urobilinogen Normal (Normal); Urine WBC None Seen /HPF (<5); Urine pH 6.5 (5.0-7.0)
--- NOTE | 2024-10-14 18:43 | RAD REPORT ---
EXAMINATION: CT ABDOMEN AND PELVIS WITH CONTRAST CLINICAL INDICATION: ABD PAIN TECHNIQUE: CT abdomen and pelvis was performed, after the administration of IV contrast, [facility] Axial, sagittal and coronal reconstructions were obtained. One or more of the following dose reduction techniques were used: Automated exposure control, adjustment of the mA and k V according to patient size, and iterative reconstruction. Unless otherwise specified, incidental findings do not require dedicated imaging follow-up. COMPARISON: 03/26/2024 FINDINGS: LOWER CHEST: The visualized lung bases are clear. LIVER: Mild fatty liver is present. Several cysts are present in the left lobe. Cholecystectomy clips . SPLEEN: Normal size. No focal lesion. PANCREAS: No mass, ductal dilation, or fortino-pancreatic fluid. ADRENALS: Normal; no mass. KIDNEYS: Normal size and contour. No hydronephrosis. GASTROINTESTINAL TRACT: No evidence of free air, significant intra-abdominal free fluid, bowel obstru ction or abscess. Small fat-containing umbilical hernia. APPENDIX: Normal appendix. LYMPH NODES: No lymphadenopathy. MUSCULOSKELETAL: No acute or suspicious osseous abnormality. ADDITIONAL FINDINGS: None. IMPRESSION: No acute or concerning abnormalities seen in the abdomen or pelvis. Small fat-containing umbilical hernia.
--- NOTE | 2024-10-14 18:57 | EDPHYS ---
Physician Documentation [facility] Name: Miryam Loen Age: 58 yrs Sex: Female : 1965 Arrival Date: 10/14/2024 Time: 15:59 Bed 5 Private MD: ED Physician Jordan Vargas HPI: 10/14 16:30 This 58 yrs old Female presents to ER via Ambulatory with complaints of Pelvic rn Pain, Nausea. 16:30 The patient presents to the emergency department with nausea, diarrhea, abdominal pain. rn Onset: The symptoms/episode began/occurred 2 week(s) ago. Possible causes: unknown. The symptoms are aggravated by nothing. The symptoms are alleviated by nothing. Severity of symptoms: At their worst the symptoms were mild in the emergency department the symptoms are unchanged. The patient has not experienced similar symptoms in the past. The patient has not recently seen a physician. Patient reports lower abdominal pain and nausea with yellow diarrhea for 2 weeks. Saw PCP and prescribed Cipro/Flagyl/antacids/dicyclomine. Patient does not feel like she is getting better. No blood in stool. No fever or chills.. Historical: - Allergies: 16:11 No Known Allergies; ko1 - PMHx: 16:11 Hypertension; ko1 - PSHx: 16:11 Cholecystectomy; ko1 - Immunization history:: Adult Immunizations unknown. - Infectious Disease History:: Denies. - Social history:: Smoking status: Patient denies any tobacco usage or history of. - Family history:: not pertinent. - Hospitalizations: : No recent hospitalization is reported. ROS: 16:30 Constitutional: Negative for fever, chills, and weight loss, Cardiovascular: Negative rn for chest pain, palpitations, and edema, Respiratory: Negative for shortness of breath, cough, wheezing, and pleuritic chest pain, Abdomen/GI: Positive for abdominal pain and nausea. Positive for diarrhea Back: Negative for injury and pain, MS/Extremity: Negative for injury and deformity, Skin: Negative for injury, rash, and discoloration, Neuro: Positive for generalized weakness Exam: 16:30 Constitutional: This is a well developed, well nourished patient who is awake, alert, rn and in no acute distress. Cardiovascular: Regular rate and rhythm. No pulse deficits. Respiratory: No increased work of breathing, no retractions or nasal flaring. Abdomen/GI: Soft, bilateral lower quadrant tenderness. No peritoneal signs Vital Signs: 16:10 BP 139 / 68; Pulse 84; Resp 16; Temp 97.5; Pulse Ox 97% on R/A; ko1 19:12 BP 134 / 86; Pulse 87; Resp 16; Pulse Ox 98% ; cp4 MDM: 16:05 Medical Screening Exam initiated rn 18:54 Differential diagnosis: Nonspecific abd pain, gastritis, pancreatitis, appendicitis, rn diverticulitis, viral gastroenteritis, gastroenteritis. Data reviewed: vital signs, nurses notes, lab test result(s), radiologic studies, CT scan, and as a result, I will discharge patient. Counseling: I had a detailed discussion with the patient and/or guardian regarding the historical points, exam findings, and any diagnostic results supporting the discharge/admit diagnosis, lab results, radiology results, the need for outpatient follow up, to return to the emergency department if symptoms worsen or persist or if there are any questions or concerns that arise at home. Special discussion: I discussed with the patient/guardian in detail that at this point there is no indication for admission to the hospital. It is understood, however, that if the symptoms persist or worsen the patient needs to return immediately for re-evaluation. ED course: No acute findings and workup of abdomen. Already on antibiotics, dicyclomine and antacids. Will add pain medication and refer to GI. I have personally reviewed all of the results, including but not limited to blood tests and imaging deemed necessary to safely discharge this patient at this time. All results given to and printed out for patient. I personally went over all the results with the patient and answered all questions. Patient will follow-up with PCP and or specialist as discussed. Return precautions given and understood.. 10/14 16:15 Order name: CBC with Diff; Complete Time: 17:48 rn 10/14 16:15 Order name: CMP; Complete Time: 18:49 rn 10/14 16:15 Order name: Lipase; Complete Time: 18:49 rn 10/14 16:15 Order name: Urinalysis w/ reflexes; Complete Time: 18:49 rn 10/14 16:15 Order name: CT Abd/Pelvis - IV Contrast Only; Complete Time: 18:49 rn 10/14 16:15 Order name: IV Saline Lock; Complete Time: 17:20 rn 10/14 16:15 Order name: Labs collected and sent; Complete Time: 17:20 rn Administered Medications: 18:58 Not Given (Patient Refused): morphineor iv 4 mg IVP once over 4 mins ll1 18:58 Not Given (Patient Refused): ondansetron 4 mg IVP once; over 2 minutes ll1 Disposition Summary: 10/14/24 18:57 Discharge Ordered Notes: Location: Home rn Problem: an ongoing problem rn Symptoms: have improved rn Condition: Stable rn Diagnosis - Lower abdominal pain, unspecified rn Followup: rn - With: Private Physician - When: As needed - Reason: Recheck today's complaints, Re-evaluation by your physician Discharge Instructions: - Abdominal Pain, Adult rn - Pain Without a Known Cause rn - Discharge Summary Sheet ll1 Forms: - Medication Reconciliation Form rn - Antibiotic tool grinder operator external - Prescription Opioid Use rn - Patient Portal Instructions rn - Leadership Thank You Letter rn - SBAR form ll1 Prescriptions: - Tramadol 50 mg Oral Tablet - take 1 tablet ORAL route every 8 hours as needed; 12 tablet; Refills: 0, rn Product Selection Permitted Signatures: Dispatcher [employer] EDJordan Koehler MD MD rn Oliver, Kathy, RN RN Madison Lucas RN 1 Corrections: (The following items were deleted from the chart) 16:15 16:15 CBC+H.LAB.BRZ ordered. EDMS EDMS 16:15 16:15 COMPREHENSIVE METABOLIC PANEL+C.LAB.BRZ ordered. EDMS EDMS 16:15 16:15 LIPASE+C.LAB.BRZ ordered. EDMS EDMS 16:15 16:15 Urinalysis+U.LAB.BRZ ordered. EDMS EDMS 16:15 16:15 Abdomen Pelvis W Con+CT.RAD.BRZ ordered. EDMS EDMS
--- NOTE | 2024-10-14 18:57 | ER ---
Nurse's Notes [facility] Name: Miryam Loen Age: 58 yrs Sex: Female : 1965 Arrival Date: 10/14/2024 Time: 15:59 Bed 5 Private MD: Diagnosis: Lower abdominal pain, unspecified Presentation: 10/14 16:10 Chief complaint: Patient states: abdominal pain and nausea for 2 weeks, on meds and ko1 they arent working. Coronavirus screen: At this time, the client does not indicate any symptoms associated with coronavirus-19. Ebola Screen: No symptoms or risks identified at this time. Initial Sepsis Screen: Does the patient meet any 2 criteria? No. Patient's initial sepsis screen is negative. Does the patient have a suspected source of infection? No. Patient's initial sepsis screen is negative. Risk Assessment: Do you want to hurt yourself or someone else? Patient reports no desire to harm self or others. Onset of symptoms is unknown. 16:10 Method Of Arrival: Ambulatory ko1 16:10 Acuity: ALLIE 3 ko1 Triage Assessment: 16:11 General: Appears in no apparent distress. uncomfortable, Behavior is calm, cooperative, ko1 appropriate for age. Pain: Complains of pain in abdomen. GI: Reports lower abdominal pain, upper abdominal pain, nausea. Historical: - Allergies: 16:11 No Known Allergies; ko1 - PMHx: 16:11 Hypertension; ko1 - PSHx: 16:11 Cholecystectomy; ko1 - Immunization history:: Adult Immunizations unknown. - Infectious Disease History:: Denies. - Social history:: Smoking status: Patient denies any tobacco usage or history of. - Family history:: not pertinent. - Hospitalizations: : No recent hospitalization is reported. Screenin:33 [facility] ED Fall Risk Assessment (Adult) History of falling in the last 3 months, ll1 including since admission No falls in past 3 months (0 pts) Confusion or Disorientation No (0 pts) Intoxicated or Sedated No (0 pts) Impaired Gait No (0 pts) Mobility Assist Device Used No (0 pt) Altered Elimination No (0 pt) Score/Fall Risk Level 0 - 2 = Low Risk Maintained a safe environment, Hourly rounding (assess needs \T\ fall precautionary measures) done. Abuse screen: Denies threats or abuse. Nutritional screening: No deficits noted. Tuberculosis screening: No symptoms or risk factors identified. Assessment: 17:33 General: Appears in no apparent distress. Behavior is calm, cooperative, appropriate ll1 for age. Pain: Complains of pain in abdomen Pain currently is 3 out of 10 on a pain scale. Quality of pain is described as aching. GI: Abdomen is round Reports lower abdominal pain, nausea. 18:08 Reassessment: No changes from previously documented assessment. Patient and/or family ll1 updated on plan of care and expected duration. Pain level reassessed. Patient is alert, oriented x 3, equal unlabored respirations, skin warm/dry/pink. 18:54 Reassessment: Dr. Vargas at . ll1 Vital Signs: 16:10 BP 139 / 68; Pulse 84; Resp 16; Temp 97.5; Pulse Ox 97% on R/A; ko1 19:12 BP 134 / 86; Pulse 87; Resp 16; Pulse Ox 98% ; cp4 ED Course: 16:04 Patient arrived in ED. ra3 16:05 Jordan Vargas MD is Attending Physician. rn 16:11 Triage completed. ko1 16:11 Arm band placed on right wrist. Patient placed in waiting room, Patient notified of ko1 wait time. 16:29 Radiology exam delayed due to lab results not completed at this time. (BUN/Creatinine). sm9 16:30 Radiology exam delayed due to IV insertion attempt and/or patient not having sm9 appropriate IV at this time. 17:08 Radiology exam delayed due to lab results not completed at this time. (BUN/Creatinine). sm9 17:16 Radiology exam delayed due to IV insertion attempt and/or patient not having sm9 appropriate IV at this time. 17:19 Madison Castano, RN is Primary Nurse. ll1 17:20 Patient placed in an exam room, on a stretcher. ll1 17:25 Inserted saline lock: 20 gauge in right antecubital area, using aseptic technique. ll1 Blood collected. Flushed with 10 mL NS. 17:25 Initial lab(s) drawn, by me, sent to lab. ll1 17:34 Patient has correct armband on for positive identification. Bed in low position. ll1 Provided Education on: ER procedures and process. Cardiac monitoring not applicable on this patient. 18:08 Urinalysis w/ reflexes Sent. ll1 18:31 CT Abd/Pelvis - IV Contrast Only In Process Unspecified. EDMS 19:12 No provider procedures requiring assistance completed. intact, bleeding controlled, No cp4 redness/swelling at site. Pressure dressing applied. Administered Medications: 18:58 Not Given (Patient Refused): morphineor iv 4 mg IVP once over 4 mins ll1 18:58 Not Given (Patient Refused): ondansetron 4 mg IVP once; over 2 minutes ll1 Medication: 17:34 VIS not applicable for this client. ll1 Outcome: 18:57 Discharge ordered by . rn 19:12 Discharged to home ambulatory, cp4 19:12 Condition: stable 19:12 Discharge instructions given to patient, Instructed on discharge instructions, follow up and referral plans. medication usage, Demonstrated understanding of instructions, follow-up care, medications, Prescriptions given X 1, 19:17 Patient left the ED. cp4 Signatures: Dispatcher [employer] EDMS Jordan Vargas MD MD rn Lewis, Lynsay, RN RN ll1 Giselle Ortega RN RN Joana Chris cp4 Inés Gaytan 9 Wendy Covington ra3 Corrections: (The following items were deleted from the chart) 18:15 17:25 Inserted saline lock: 20 gauge in right antecubital area, using aseptic ll1 technique. Blood collected. Flushed with 10 mL NS ll1
[2024-10-14 19:40] VITALS: TEMP 97.5
[2024-10-14 19:45] VITALS: BP 134/86; O2SAT 98
== END 2024-10-14 19:17 | disposition home or self-care (01) ==
LOC: ER 15:59
DX: R10.32 Left lower quadrant pain (principal); R19.7 Diarrhea, unspecified; R53.1 Weakness; R11.0 Nausea; I10 Essential (primary) hypertension
CPT/HCPCS: 36415; 74177; 80053; 81001; 83690; 85025; Q9967